=== PATIENT | female | born 1995 | race Caucasian/White ===

== ENCOUNTER 2020-03-30 06:02 | Emergency (ER) | payer OTHER, SELFPAY ==
[2020-03-30 06:04] VITALS: BP 124/64; PULSE 79; RESP 16; TEMP 36.8; O2SAT 99; BMI 22.1
--- NOTE | 2020-03-30 06:07 | ED.VIS.GEN ---
History of Present Illness Chief Complaint: Nausea/Vomiting Informant: Patient, Family Onset: Days Context: Gradual Onset Timing: Waxes and wanes Current Severity: Moderate Maximum Severity: Moderate Narrative: Present secondary to vomiting. She had a pituitary tumor removed at [facility] on March 24. She came home from the hospital on the third. She developed vomiting on the fifth. She started Zofran yesterday without significant improvement. She complains of feeling very dehydrated. She does have a mild headache. She has mild light sensitivity. No fever or chills noted. - Past Medical History (1) H/O: pituitary tumor Status: Acute Past Medical History - Allergies and Home Meds Allergies/Adverse Reactions: Allergies Penicillins Allergy (Verified 03/30/20 06:08) Rash Primary Care Physician: Rebel Slade III, MD [Primary Care Provider] - Prior records reviewed: Yes Lives: Spouse/ Significant Other Review of Systems General: Denies: Chills, Fever Eyes: Denies: Visual changes - bilaterally ENT: Denies: Bilateral ear pain Cardiovascular: Denies: Chest pain Respiratory: Denies: Dyspnea Gastrointestinal: Reports: Nausea, Vomiting. Denies: Abdominal pain Musculoskeletal: Denies: Extremity Pain Skin: Denies: Rash Neurological: Reports: Headache Hematologic: Denies: Easy bruising, Easy bleeding Allergy: Denies: Uticaria Physical Exam Inital Vital Signs reviewed: Yes General: Well nourished, Well developed Head: Normocephalic ENT: Dry mucous membranes Neck: Supple Cardiovascular: Regular rate, Regular rhythm Respiratory: No distress, CTA bilaterally Abdomen: Soft, Nontender, Hypoactive bowel sounds Extremities: Nontender Skin: Normal color Neurological: Alert, Oriented x3, Normal Strength, Normal Sensation Psychological: Normal affect Diagnostic/Tx/Re-eval 03/30/20 06:04 Brain/Head without Contrast [CT] Stat Laboratory Results 03/30/20 03/30/20 03/30/20 06:10 06:10 06:10 WBC 10.5 RBC 3.33 L Hgb 10.3 L Hct 29.1 L MCV 87.4 MCH 30.9 MCHC 35.4 RDW Std Deviation 34.6 L RDW Coeff of Luz Maria 11.1 L Plt Count 290 MPV 9.1 Immature Gran % (Auto) 0.700 Neut % (Auto) 86.5 H Lymph % (Auto) 7.4 L [place] % (Auto) 5.2 Eos % (Auto) 0.1 Baso % (Auto) 0.1 Absolute Neuts (auto) 9.1 H Absolute Lymphs (auto) 0.78 L Nucleated RBC % 0 Sodium 117 L* Potassium 3.3 L Chloride 80 L Carbon Dioxide 24.0 Anion Gap 13 BUN 7 Creatinine 0.83 Estim Creat Clear Calc 87.20 Est GFR (MDRD) Af Amer 109 Est GFR (MDRD) Non-Af 90 BUN/Creatinine Ratio 8.4 L Glucose 134 H Calcium 8.5 Total Bilirubin 1.00 Direct Bilirubin 0.31 H AST 36 ALT 52 Alkaline Phosphatase 72 Total Protein 7.2 Albumin 3.1 L Globulin 4.1 Serum , Qual NEGATIVE - Medical Decision Making Patient was given IV fluids along with Reglan and Benadryl on arrival. Vomiting is improved at this time. I was able to review records in clinic sink. On March 26 when she was discharged from the hospital her sodium was 142. Today her sodium is 117. I spoke with her surgeon at the [facility]. Patient has been accepted to the neuro ICU unit there. She has had a 1 L bolus of normal saline here and second bag will run at 200 cc/h. I have asked for 3% saline to be available at bedside only to be used if patient starts to seize. ED Disposition - Plan for ED Patient: Disposition: [facility] - Main Diagnosis: Hyponatremia Referrals: Rebel Slade III, MD [Primary Care Provider] -
[2020-03-30 06:12] VITALS: BP 124/64; PULSE 71; RESP 10; TEMP 37.1; O2SAT 100
[2020-03-30] MEDS: Metoclopramide 10 MG/2 ML Vial IV (06:12)
[2020-03-30] MEDS: 0.9% Normal Saline 1,000 ML 1000 ML IV (06:12)
[2020-03-30] MEDS: 0.9% Normal Saline 1,000 ML 150 ML IV (06:13)
[2020-03-30] MEDS: DiphenhydrAMINE 50 MG/ML Syringe 25 MG IV (06:13)
[2020-03-30 06:18] LABS: Absolute Lymphocyte Count 0.78 X10^3/uL (0.83-4.51); Absolute Neutrophil Count 9.1 X10^3/uL (2.0-7.7); Basophil# 0.01 X10^3/uL; Basophil% 0.1 % (0-1); Eosinophil# 0.01 X10^3/uL; Eosinophils% 0.1 % (0-5); Hematocrit 29.1 % (37-47); Hemoglobin 10.3 g/dL (12.0-15.0); Lymphocyte # 0.78 X10^3/ul (4.0); Lymphocyte % 7.4 % (19-41); Mean Corp Hgb Conc 35.4 g/dL (32-36); Mean Corpuscular Hgb 30.9 pg (27.0-32.0); Mean Corpuscular Volume 87.4 fL (81-99); Mean Platelet Vol. 9.1 fl (6.2-12.0); Monocyte# 0.54 X10^3/uL; Monocyte% 5.2 % (0-10); NRBC Flagged by Analyzer 0 % (0-5); Neutrophil # 9.06 X10^3/uL (2.7-7.7); Neutrophil % 86.5 % (47-70); Platelet Count 290 K/mm3 (150-450); RBC Distribution Width CV 11.1 % (11.6-14.6); RBC Distribution Width SD 34.6 fl (35.1-43.9); Red Blood Count 3.33 M/mm3 (4.2-5.4); White Blood Count 10.5 K/mm3 (4.4-11.0)
[2020-03-30 06:27] LABS: Internal QC Validated? YES +Cl - CLEAR BKGD; Pregnancy, Serum, hCG Quali. NEGATIVE Negative
[2020-03-30 06:47] LABS: AST(SGOT) 36 U/L (15-37); Alanine Aminotransfer ALT/SGPT 52 U/L (13-56); Albumin, Serum 3.1 g/dL (3.2-5.0); Alkaline Phosphatase 72 U/L (45-117); Anion Gap 13 (5-15); BUN 7 mg/dL (7-18); BUN/Creat Ratio 8.4 RATIO (10-20); Bilirubin, Direct 0.31 mg/dL (0.00-0.30); Calcium,Total 8.5 mg/dL (8.5-10.1); Chloride 80 mmol/L (98-107); Creatinine, Serum 0.83 mg/dL (0.55-1.02); EST Glomerular Filtration Rate 90 mL/min (>60); Est Glom Filt Rate - Afr Amer 109 mL/min (>60); Globulin 4.1 g/dL (2.2-4.2); Glucose 134 mg/dL (74-106); Potassium 3.3 mmol/L (3.5-5.1); Protein, Total 7.2 g/dL (6.4-8.2); Sodium Level 117 mmol/L (136-145)
--- NOTE | 2020-03-30 07:30 | ED.RN ---
sodium 3% at bedside per dr order not to given unless pt seizes
[2020-03-30 07:43] VITALS: BP 132/80; PULSE 78; RESP 14; O2SAT 98
[2020-03-30 08:11] VITALS: BP 127/90; PULSE 73; RESP 19; O2SAT 100
== END 2020-03-30 08:12 | disposition short-term general hospital (02) ==
PROVIDERS: Emergency Provider Emergency Medicine; PCP Family Medicine
DX: E87.1 Hypo-osmolality and hyponatremia (principal); R11.2 Nausea with vomiting, unspecified; E86.0 Dehydration
CPT/HCPCS: 80048; 80076; 84703; 85025; 96361; 96374; 96375; 99285; J7030; A4216

== ENCOUNTER 2022-02-24 10:36 | Emergency (ER) | payer OTHER, SELFPAY ==
[2022-02-24 10:37] VITALS: BP 116/72; PULSE 124; RESP 16; TEMP 37.6; O2SAT 98; BMI 27.1
--- NOTE | 2022-02-24 10:57 | EDS_ITS ---
HPI History of Present Illness Chief Complaint: Nausea/Vomiting Informant: patient Narrative Narrative: Presents with nausea vomiting and feeling of dehydration. Patient is currently 35 weeks G1, P0. She has not had significant problems with . She had some nausea vomiting first trimester. But she has done well since. She started with some nausea vomiting at about 1130 last night. No abdominal or pelvic pain. No loss of fluid or bleeding. No flank or back pain. No dysuria or your new urinary symptoms. She states she is vomited multiple times and if she drinks even water it comes up. She just feels as though she is a bit dehydrated. She states that she was not she would actually have stayed at home and written this out. She did talk to her OB who referred her here. Patient did accidentally take 3 rather than 2 iron pills yesterday that may have contributed to this. She also ate a meal with a large burger and salad at a restaurant and this may have initiated the events. She has no known sick contacts. No fevers or chills. Past medical history is pituitary adenoma No routine medications Allergy amoxicillin penicillin Surgeries transsphenoidal resection of the pituitary 2 years ago Non-smoker lives with [facility] Medical History (Updated 02/24/22 @ 12:[address] Phu Landin MD) Pituitary adenoma Home Medications NK 02/24/22 [History Last Taken Unknown] ondansetron 4 mg PO Q8H PRN #10 tab 02/24/22 [Rx Last Taken Unknown] Allergy/AdvReac Type Severity Reaction Status Date / Time amoxicillin Allergy Rash Verified 02/24/22 10:40 Penicillins Allergy Rash Verified 02/24/22 10:40 Social History Smoking Status: Never smoker ROS ROS ED Constitutional Constitutional ED: Denies chills or fever(s) Eyes Eyes: Denies blurry vision ENT ENT ED: Denies rhinorrhea Cardiovascular Cardiovascular: Denies chest pain or palpitations Respiratory/Chest Respiratory/Chest: Denies cough or dyspnea Gastrointestinal Gastrointestinal: Reports nausea and vomiting; Denies abdominal pain or diarrhea Genitourinary Genitourinary ED: Denies dysuria or hematuria Musculoskeletal Musculoskeletal: Denies myalgias Integumentary Denies rash Neurologic Neurologic: Denies headache(s), paresthesias or weakness Endocrine Endocrinology: Denies polydipsia or polyuria Allergic/Immunologic Allergic/Immunologic ED: Denies urticaria EXAM Physical Exam Const Vital Signs: 02/24/22 10:37 Temperature 99.6 F H Temperature Source Temporal Pulse Rate 124 H Respiratory Rate 16 Blood Pressure 116/72 Blood Pressure Mean 86 Pulse Ox 98 Oxygen Delivery Method Room Air Positive well nourished and well developed General Appearance ED: well developed and NAD; Negative for cyanotic or diaphoretic HEENT Reports dry mucous membranes HEENT Narrative: Mildly dry mucous membrane Mouth ED: Yes dry mucous membranes Mouth: dry mucous membranes Eyes General Eye ED: Negative for pale conjunctiva or scleral icterus Neck no JVD Chest Wall inspection of chest normal Resp normal respiratory effort and clear to auscultation bilaterally Cardio regular rhythm Rate: tachycardic GI normal to inspection, nondistended, normoactive bowel sounds and non-tender GI Narrative: Abdomen is gravid but otherwise normal. No tenderness at all. No uterine tenderness. No right upper quadrant or epigastric tenderness. This is a very benign abdominal exam Palpation: soft Back/Spine no CVA tenderness Extremity normal to inspection Neuro oriented x3 Sensorium / Orientation: alert Psych mental status grossly normal Skin no rashes or lesions noted MDM MDM MDM Narrative Medical decision making narrative: Since electrolytes and CBC overall look normal. Urine shows ketones but no sign of infection. Patient did not want COVID testing because of the transsphenoidal surgery that she had had 2 years ago. I went back to check on the patient. She was smiling with a cup of ice and water in her hand. She was tolerating this well. I think we can get her home at this time. We will write for a prescription of Zofran. We discussed reasons to return and follow-up. We even discussed the studies that have hinted of some risk with Zofran and during but I think the benefits outweigh the risks in this case. Lab Data Attestation: I reviewed the patient's lab results. Labs: Laboratory Results - last 24 hr 02/24/22 02/24/22 02/24/22 11:00 11:00 11:42 WBC 11.0 RBC 3.94 L Hgb 12.0 Hct 36.4 L MCV 92.4 MCH 30.5 MCHC 33.0 RDW Std Deviation 50.9 H RDW Coeff of Luz Maria 15.1 H Plt Count 223 MPV 9.6 Immature Gran % (Auto) 0.600 Neut % (Auto) 94.5 H Lymph % (Auto) 2.9 L [place] % (Auto) 1.8 Eos % (Auto) 0.0 Baso % (Auto) 0.2 Absolute Neuts (auto) 10.4 H Absolute Lymphs (auto) 0.32 L Nucleated RBC % 0 Differential Comment SCANNED Sodium 140 Potassium 3.9 Chloride 109 H Carbon Dioxide 23.0 Anion Gap 8 BUN 11 Creatinine 0.70 Estim Creat Clear Calc 101.63 Est GFR (MDRD) Af Amer 130 Est GFR (MDRD) Non-Af 107 BUN/Creatinine Ratio 15.6 Glucose 97 Calcium 8.7 Urine Color Yellow Urine Clarity Sl. Cloudy Urine pH 7.0 Ur Specific [place] 1.010 Urine Protein 15 H Urine Glucose (UA) Normal Urine Ketones 150 A* Urine Occult Blood Negative Urine Nitrite Negative Urine Bilirubin Negative Urine Urobilinogen 1 H Ur Leukocyte Esterase Negative Urine RBC 0 SEEN Urine WBC 0-5 SEEN Ur Squamous Epith Cells 5-10 SEEN Urine Bacteria 0 SEEN Urine Mucus 0 SEEN Discharge Plan Triage Chief Complaint: Nausea/Vomiting ED Provider: Phu Landin Dx/Rx/DC Orders Clinical Impression: Nausea and vomiting, Antepartum dehydration Instructions: ED Diet for Vomiting or ..., ED Vomiting (Adult) Prescriptions: New ondansetron 4 mg tablet,disintegrating 4 mg PO Q8H PRN (Reason: nausea and vomiting) Qty: 10 RF: 0 No Action NK RF: 0 Primary Care Provider: Tad Lovett Referrals: Tad Lovett MD [Primary Care Provider] - 1-2 Days if not improving Activity Restrictions/Additional Instructions: Call your director [facility] on [facility], Dr. Cali for recheck. Disposition Disposition: Home, Self Care
[2022-02-24] MEDS: Ondansetron 4 MG/2 ML Vial IV (11:05)
[2022-02-24] MEDS: 0.9% Normal Saline 1,000 ML 1000 ML IV (11:05)
[2022-02-24 11:17] LABS: Absolute Lymphocyte Count 0.32 X10^3/uL (0.83-4.51); Absolute Neutrophil Count 10.4 X10^3/uL (2.0-7.7); Basophil# 0.02 X10^3/uL; Basophil% 0.2 % (0-1); Hematocrit 36.4 % (37-47); Lymphocyte # 0.32 X10^3/ul (0.83-4.51); Lymphocyte % 2.9 % (19-41); Mean Corpuscular Hgb 30.5 pg (27.0-32.0); Mean Corpuscular Volume 92.4 fL (81-99); Mean Platelet Vol. 9.6 fl (6.2-12.0); Monocyte% 1.8 % (0-10); NRBC Flagged by Analyzer 0 % (0-5); Neutrophil % 94.5 % (47-70); POSITIVE DIFFERENTIAL YES; Platelet Count 223 K/mm3 (150-450); RBC Distribution Width CV 15.1 % (11.6-14.6); RBC Distribution Width SD 50.9 fl (35.1-43.9); Red Blood Count 3.94 M/mm3 (4.2-5.4)
[2022-02-24 11:20] LABS: Differential Indicated SCAN CRITERIA MET
[2022-02-24 11:28] LABS: Differential Comment SCANNED
[2022-02-24 11:33] LABS: Anion Gap 8 (5-15); BUN 11 mg/dL (7-18); BUN/Creat Ratio 15.6 RATIO (10-20); Calcium,Total 8.7 mg/dL (8.5-10.1); Chloride 109 mmol/L (98-107); EST Glomerular Filtration Rate 107 mL/min (>60); Est Glom Filt Rate - Afr Amer 130 mL/min (>60); Estimated Creatinine Clearance 101.63 ml/min; Glucose 97 mg/dL (74-106); Potassium 3.9 mmol/L (3.5-5.1); Sodium Level 140 mmol/L (136-145)
[2022-02-24 11:48] LABS: Bacteria 0 SEEN /hpf (None Seen); Mucous, Urine 0 SEEN /hpf (<or=2+); Red Blood Cells-Urine 0 SEEN /hpf (0-5)
[2022-02-24 11:51] LABS: Color, Urine Yellow (Yellow); Glucose, Dipstick Normal (Normal); Leukocyte Esterase-Dipstick Negative /ul (Negative); Nitrite-Dipstick Negative (Negative); Occult Blood-Urine Negative /ul (Negative); Protein-Dipstick 15 mg/dl (Negative); Urine Bilirubin Dipstick Negative (Negative); Urine Clarity Sl. Cloudy (Clear); Urine Urobilinogen 1 mg/dl (Normal)
[2022-02-24 11:52] LABS: Ketone-Dipstick 150 mg/dl (Negative)
[2022-02-24 12:04] LABS: Squamous Epithelial Cells - UA 5-10 SEEN /hpf (5-10); White Blood Cells 0-5 SEEN /hpf (0-5)
[2022-02-24 12:29] VITALS: PULSE 86; O2SAT 100
== END 2022-02-24 12:40 | disposition home or self-care (01) ==
PROVIDERS: Emergency Provider Emergency Medicine; PCP Family Medicine; Visit Provider Emergency Medicine
DX: O21.2 Late vomiting of pregnancy (principal); O99.283 Endocrine, nutritional and metabolic diseases complicating pregnancy, third trimester; E86.0 Dehydration; Z3A.35 35 weeks gestation of pregnancy
CPT/HCPCS: 80048; 81001; 85025; 96361; 96374; 99283; J7030; A4216; J2405

== ENCOUNTER 2022-03-31 15:50 | Inpatient (IN) | payer OTHER, SELFPAY ==
[2022-03-31] VITALS (8 sets, daily range): BP systolic 114–122; BP diastolic 71–82; PULSE 53–90; TEMP 36.1–36.9; O2SAT 97–100; BMI 26.8
[2022-03-31] MEDS: Lactated Ringers 1,000 ML 50 ML IV (16:40)
[2022-03-31 17:01] LABS: Basophil# 0.03 X10^3/uL; Basophil% 0.4 % (0-1); Eosinophil# 0.03 X10^3/uL; Eosinophils% 0.4 % (0-5); Hemoglobin 11.7 g/dL (12.0-15.0); Lymphocyte % 20.3 % (19-41); Mean Corp Hgb Conc 33.4 g/dL (32-36); Mean Corpuscular Volume 92.6 fL (81-99); Mean Platelet Vol. 9.8 fl (6.2-12.0); Monocyte# 0.51 X10^3/uL; Monocyte% 6.1 % (0-10); NRBC Flagged by Analyzer 0 % (0-5); Neutrophil # 6.04 X10^3/uL (2.7-7.7); Neutrophil % 72.1 % (47-70); Platelet Count 267 K/mm3 (150-450); RBC Distribution Width CV 14.9 % (11.6-14.6); RBC Distribution Width SD 50.4 fl (35.1-43.9); Red Blood Count 3.78 M/mm3 (4.2-5.4); White Blood Count 8.4 K/mm3 (4.4-11.0)
[2022-03-31] MEDS: miSOPROStol 25 MCG TABLET PO (17:07)
[2022-03-31] MEDS: LACTATED RINGERS 500 ML 999 ML IV (19:20)
[2022-03-31] MEDS: miSOPROStol 25 MCG TABLET VAGINAL (21:12)
[2022-04-01] VITALS (54 sets, daily range): BP systolic 89–149; BP diastolic 51–78; PULSE 58–104; RESP 11–17; TEMP 36.2–37.1; O2SAT 91–100
[2022-04-01] MEDS: miSOPROStol 50 MCG TABLET VAGINAL (01:41)
[2022-04-01] MEDS: 0.9% Normal Saline Single 100 ML IV.SOLN. INTRA-UTER (07:00)
--- NOTE | 2022-04-01 07:23 | HP.PCM.OB_ITS ---
HPI - General General Date of Admission: 03/30/22 Date of Service: 03/30/22 Chief Complaint: @ 40.5 weeks here for elective IOL HPI Narrative RAGHAV NGUYEN, is a 26 F who presents for elective IOL Maternal Data Information Final CIARA Source: [place] <20 weeks Gestational age: 40.5 [facility] Medical History (Updated 04/01/22 @ 07:[address] Vickie Pena MD) Pituitary adenoma Home Medications ferrous sulfate 325 mg (65 mg iron) tablet (iron) 65 mg PO BID anemia in 03/31/22 [History Last Taken 03/30/22 20:00] vit with calcium-iron fum-folic acid 60 mg iron-1 mg tablet 1 tab PO DAILY 03/31/22 [History Last Taken 03/31/22 08:00] Allergy/AdvReac Type Severity Reaction Status Date / Time amoxicillin Allergy Hives Verified 03/31/22 17:55 Penicillins Allergy Hives Verified 03/31/22 17:55 Social History Smoking Status: Never smoker History Elective abortions Hx Para 0 Spontaneous abortions Hx # Term Pregnancies Ectopic pregnancies Hx # Pregnancies Multiple births # of living children NST FHR Rate Baby A Baseline: 140s Variability:: Moderate Accelerations:: 15 x 15 Decelerations:: None NST Reactive:: Yes FHR Category:: Category I Uterine Activity:: irregular Vital Signs Vital Signs Vital Signs: 03/31/22 16:45 03/31/22 16:46 03/31/22 16:46 Temperature 98.4 F Temperature Source Pulse Rate 75 Blood Pressure 120/82 H BP Systolic 120 BP Diastolic 82 Pulse Ox 03/31/22 16:45 03/31/22 16:45 03/31/22 16:45 Temperature 98.4 F Temperature Source Temporal Pulse Rate Blood Pressure BP Systolic BP Diastolic Pulse Ox 97 03/31/22 19:34 03/31/22 19:34 03/31/22 19:40 Temperature Temperature Source Pulse Rate 90 60 Blood Pressure 122/71 H BP Systolic 122 BP Diastolic 71 Pulse Ox 03/31/22 19:40 03/31/22 19:42 03/31/22 22:54 Temperature 97.3 F L Temperature Source Pulse Rate Blood Pressure 114/74 BP Systolic 114 BP Diastolic 74 Pulse Ox 100 03/31/22 22:54 03/31/22 22:55 03/31/22 22:58 Temperature 97.0 F L Temperature Source Pulse Rate 53 L Blood Pressure BP Systolic BP Diastolic Pulse Ox 100 04/01/22 02:51 04/01/22 02:51 04/01/22 02:51 Temperature 98.2 F Temperature Source Pulse Rate 64 Blood Pressure 108/73 BP Systolic 108 BP Diastolic 73 Pulse Ox 04/01/22 06:05 04/01/22 06:05 04/01/22 06:05 Temperature 98.1 F Temperature Source Pulse Rate 59 L Blood Pressure 113/71 BP Systolic 113 BP Diastolic 71 Pulse Ox 04/01/22 06:05 04/01/22 06:05 04/01/22 07:14 Temperature Temperature Source Pulse Rate 58 L Blood Pressure 109/71 BP Systolic 109 BP Diastolic 71 Pulse Ox 98 04/01/22 07:14 04/01/22 07:14 04/01/22 07:14 Temperature 98.1 F Temperature Source Pulse Rate 62 Blood Pressure BP Systolic BP Diastolic Pulse Ox 99 04/01/22 07:15 04/01/22 07:15 Temperature 98.1 F Temperature Source Tympanic Pulse Rate Blood Pressure BP Systolic BP Diastolic Pulse Ox Weight Weight: 68.6 kg Body Mass Index (BMI) 26.8 Physical Exam Narrative VE: closed on admission. After 3 doses of 25mcg cytotec cervix 1/80/-2- Transcervical odonnell placed Const alert and oriented x3 General Appearance: cooperative HEENT normocephalic GI GI Narrative: Gravid, non tender to palpation. OB / External & Speculum: external exam normal Extremity normal to inspection Skin no rashes or lesions noted Neuro oriented x3 and CN's II-XII intact bilaterally Psych Appearance: grossly normal Labs Labs Labs: Blood Type A POSITIVE Antibody Screen NEGATIVE Hct 35.0 % (37-47) L Hgb 11.7 g/dL (12.0-15.0) L Assessment & Plan (1) 40 weeks gestation of : (2) Encounter for elective induction of labor: (3) H/O: pituitary tumor: PLAN: Plan Admit to L&D Montior FHR/TOCO Epidural if requested for pain Monitor VS Anticipate cytotec- 3 doses given ODONNELL/PITOCIN- will allow small meal before starting Pitcoin
[2022-04-01] MEDS: Oxytocin 30 units/NS 500 ml 30 UNITS/500 ML IV.SOLN IV (09:35)
[2022-04-01] MEDS: LACTATED RINGERS 500 ML 999 ML IV ×2 (09:35→13:33)
[2022-04-01] MEDS: Lactated Ringers 1,000 ML 200 ML IV ×2 (10:39→15:47)
[2022-04-01] MEDS: fentaNYL-bupivacaine (epidural) 100 ML BAG EPIDURAL (11:05)
[2022-04-01] MEDS: Acetaminophen 500 MG Tablet PO (15:49)
[2022-04-01] MEDS: Sodium Citrate/Citric Acid 30 ML UDC PO (15:49)
--- NOTE | 2022-04-01 16:10 | PCM.PN.BLA ---
Progress Note Elective induction at 40 weeks and 5 days. Pitocin has been on and off throughout the day due to having late decelerations. Baby is only tolerating 1 position well. meconium stained fluid at time of SROM. She has done multiple position changes Pitocin has been off and now the tracing is a category 1. I came into discussed with the patient and her continued labor without the use of Pitocin versus primary section. After discussion they would like to proceed with a primary section. pt reports she is very anxious and want to proceed with cs. They understand that she is remote from delivery and unable to start Pitocin and continue to use. Patient was approximately 4 cm at 9 AM and on last exam was 4 to 5 cm/85%/-2 at 3:30pm. Patient has a narrow pubic arch estimated weight on ultrasound was 7 pounds 11 ounces. currently FHR cat 1 and reactive. OR team notified.
[2022-04-01] MEDS: Cefazolin 2 GM in 0.9% Normal Saline 100 ML IV (16:16)
--- NOTE | 2022-04-01 17:05 | OP.PCM_ITS ---
Assessment & Plan (1) Delivery by section: (2) Meconium in amniotic fluid affecting management of mother: (3) Category II heart rate tracing during maternal care in third trimester: (4) intolerance to labor, delivered, current hospitalization: Details Operative Information Date of Procedure: 04/01/22 Pre-Operative Diagnosis: 40 weeks, meconium fluid, intolerance to labor, cat 2 fhr, remote from delivery Post-Operative Diagnosis: same, live female infant Indications Narrative: Patient was admitted on 03/31/2022 for elective induction. She received 3 doses of Cytotec. On 04/01/2022 transcervical Khalil and Pitocin were started. Khalil came out patient was approximately 4 cm. She spontaneously ruptured with meconium fluid. Pitocin was started but we are unable to continue it due to late decelerations. Patient was remote from delivery so 4 to 5 cm at approximately 3:30 PM. After discussion with the patient and her they decided to proceed with a primary section versus continued labor. Classification: ALICIA Procedure Type: low transverse toppiece chopper #1: Gabriela Abreu Type of Anesthesia: Epidural Antibiotic Given: Ancef 2 grams IV x1 and Zithromax 500 mg/5 mL X1 Drain: Khalil to straight drain Estimated Blood Loss: 600 Fluids Replaced: 1000 Procedure Start Time: 16:29 Time of Delivery: 16:34 Findings Description of Procedure: After informed consent was obtained the patient was taken the operating room. She was then placed in the supine position. She was prepped and draped in the normal sterile fashion. Epidural Anesthesia was found to be adequate. At this time a Pfannenstiel skin incision was made with a knife was carried down to the underlying layer of the fascia. The fascial incision was then extended laterally using curved Rodriguez scissor. Attention was then turned to the superior aspect of the fascial edge was grasped with 2 straight Alicia clamps tented up and the rectus muscle dissected off sharply using curved Rodriguez scissor. Attention was then turned to the inferior aspect where again [place] clamps were placed in the rectus muscles were tented up and the fascia was dissected off sharply using the curved Rodriguez scissor. Rectus muscles were then in the midline sharply and peritoneum was entered bluntly. Gentle opposing traction was placed. At this time the vesicouterine peritoneum was identified. Scalpel was used to make a uterine incision in a low transverse fashion. The uterus was then entered bluntly gentle opposing traction was placed to extend this incision. Amniotic fluid- meconium stained. head asynclitic maternal right. 's head was brought to the uterine incision was delivered atraumatically. Mouth and nose were suctioned. was vigorous. delayed cord clamping. Cord was clamped and cut was handed to the waiting nursery team. The Placenta was removed from the uterus. The uterus was then removed from the abdominal cavity. The uterus was cleared of all clots and debris using a lap. At this time the uterine incision was reapproximated using #1 Vicryl in a running locked fashion. followed by a second imbricating layer with 1-0 viryl in figure of eight fashion. Hemostasis was appreciated. Posterior cul-de-sac was then cleared of all clots and debris. Uterus was placed back in the abdominal cavity. Gutters were cleared of all clots and debris. Uterine incision was reevaluated and noted to be of excellent hemostasis. Misty placed over uterine incison. At this time the peritoneum and muscle were grasped with Kellys reapproximated using #2 Vicryl suture in a running fashion. Misty placed over rectus. Fascia was then reapproximated using #1 Vicryl in a running fashion. Misty placed in subq layer and layer was reapproximated with #2 0 plain gut suture in an interrupted fashion. Subcu layer was closed using 4-0 Monocryl in a subcu fashion. Dry sterile dressing was applied. Instrument lap needle count correct ?2. Anticipated normal postoperative course. Presentation: Positive for Vertex Amniotic Membrane Rupture Type: Spontaneous Amniotic Fluid Description: Moderate meconium Placental Delivery Description: Expressed Placenta Disposition: [facility] Cord Vessel Description: 3 Vessels Cord Entanglement: None Cord Gases: ABG and VBG Infant A Gender: Female (1 minute): 9 (5 minute): 9 Delayed Cord Clamping: Yes Complications Risks of Surgery Discussed w/Patient: Bleeding, Anesthesia Risks, Infection and Injury to surrounding structure(s) including bowel and bladder Complications: none
[2022-04-01] MEDS: Oxytocin 30 units/NS 500 ml 30 UNITS/500 ML IV.SOLN 167 UNITS IV (17:20)
[2022-04-01] MEDS: Ketorolac 30 MG/ML Syringe IV ×2 (17:40→23:33)
--- NOTE | 2022-04-01 19:40 | NURSING ---
Epidural cath removed by this RN. Blue tip intact.
[2022-04-01] MEDS: Lactated Ringers 1,000 ML 100 ML IV (20:43)
[2022-04-01] MEDS: Acetaminophen 500 MG Tablet 1000 MG PO (21:51)
[2022-04-01] MEDS: Ferrous Sulfate 325 MG Tablet PO (21:51)
[2022-04-02] VITALS (7 sets, daily range): BP systolic 92–108; BP diastolic 48–71; PULSE 56–69; RESP 14–18; TEMP 36.1–36.4; O2SAT 97–100
[2022-04-02] MEDS: Acetaminophen 500 MG Tablet 1000 MG PO ×4 (03:45→22:50)
[2022-04-02] MEDS: Ketorolac 30 MG/ML Syringe IV ×2 (05:20→11:14)
[2022-04-02] MEDS: 0.9% Saline Lock 10 ML Syringe IV ×2 (05:21→11:15)
[2022-04-02 05:34] LABS: Hematocrit 32.6 % (37-47); Mean Corp Hgb Conc 33.7 g/dL (32-36); Mean Corpuscular Hgb 31.1 pg (27.0-32.0); Mean Corpuscular Volume 92.1 fL (81-99); Mean Platelet Vol. 9.5 fl (6.2-12.0); Platelet Count 234 K/mm3 (150-450); RBC Distribution Width CV 14.5 % (11.6-14.6); RBC Distribution Width SD 49.2 fl (35.1-43.9); Red Blood Count 3.54 M/mm3 (4.2-5.4); White Blood Count 12.1 K/mm3 (4.4-11.0)
--- NOTE | 2022-04-02 09:41 | PCM.PROGNOTE ---
Subjective Subjective patient seen at bedside, doing well. Patient reports good pain control. lochia mild. dressing dry and intact. passing flatus, voiding w/o difficulty. breast feeding well. Objective Data Objective Data Vital Signs: Vital Signs Temp Pulse Resp BP Pulse Ox O2 Del Method 97.6 F L 66 14 105/64 98 Room Air 04/02/22 08:20 04/02/22 08:20 04/02/22 08:20 04/02/22 08:20 04/02/22 08:20 04/02/22 08:20 Oxygen Delivery Method Room Air Weight: 68.6 kg Body Mass Index (BMI) 26.8 Intake & Output: Intake and Output for Last 24 Hours 03/31/22 04/01/22 04/02/22 23:59 23:59 23:59 Intake Total 633.33 / 633.33 3799.42 / 3799.42 626.67 / 626.67 Output Total 1000 / 1000 3325 / 3325 1500 / 1500 Balance -366.67 / -366.67 474.42 / 474.42 -873.33 / -873.33 Lab / Micro Data Result Diagrams: 04/02/22 05:25 Labs: Laboratory Results - last 24 hr 04/02/22 05:25: WBC 12.1 H, RBC 3.54 L, Hgb 11.0 L, Hct 32.6 L, MCV 92.1, MCH 31.1, MCHC 33.7, RDW Std Deviation 49.2 H, RDW Coeff of Luz Maria 14.5, Plt Count 234, MPV 9.5 Micro: Microbiology 03/31/22 16:50 Nasal Secretion SARS-CoV-2 Antigen (Rapid) - Final Physical Exam Const alert and oriented x3 General Appearance: cooperative HEENT normocephalic Neck General: normal visual inspection GI soft to palpation and non-distended GI Narrative: Fundus firm Extremity normal to inspection and no calf tenderness Skin no rashes or lesions noted Neuro oriented x3 and CN's II-XII intact bilaterally Psych mental status grossly normal Assessment & Plan Assessment/Plan (1) Delivery by section: PLAN: Plan POD# 1 , Doing well Routine care pain mgmt monitor VS ambulation
[2022-04-02] MEDS: Senna/Docusate Sodium 1 Tablet PO (10:26)
[2022-04-02] MEDS: Ferrous Sulfate 325 MG Tablet PO ×2 (11:14→16:52)
[2022-04-02] MEDS: Ibuprofen 600 MG Tablet PO (18:02)
[2022-04-03] MEDS: Ibuprofen 600 MG Tablet PO ×2 (00:05→05:55)
[2022-04-03 02:00] VITALS: BP 121/67; PULSE 57; RESP 16; TEMP 36.3; O2SAT 99
[2022-04-03] MEDS: Acetaminophen 500 MG Tablet 1000 MG PO ×2 (05:04→09:37)
[2022-04-03 07:57] VITALS: BP 126/58; PULSE 65; RESP 18; TEMP 36.6; O2SAT 98
--- NOTE | 2022-04-03 08:31 | OB.TRI.PN ---
Progress Notes Progress Note: Doing well per patient and nursing staff. Ambulating and taking PO without difficulty. Voiding and passing flatus. Pain controlled. , services for assistance. Denies headache, visual changes, chest pain, shortness of breath, leg pain or increased bleeding. Lochia normal. Laboratory Studies: Laboratory Tests 04/02/22 03/31/22 03/31/22 Range/Units 05:25 16:40 16:40 WBC 12.1 H 8.4 (4.4-11.0) K/mm3 RBC 3.54 L 3.78 L (4.2-5.4) M/mm3 Hgb 11.0 L 11.7 L (12.0-15.0) g/dL Hct 32.6 L 35.0 L (37-47) % MCV 92.1 92.6 (81-99) fL MCH 31.1 31.0 (27.0-32.0) pg MCHC 33.7 33.4 (32-36) g/dL RDW Std Deviation 49.2 H 50.4 H (35.1-43.9) fl RDW Coeff of Luz Maria 14.5 14.9 H (11.6-14.6) % Plt Count 234 267 (150-450) K/mm3 MPV 9.5 9.8 (6.2-12.0) fl Immature Gran % (Auto) 0.700 (0.0-0.9) % Neut % (Auto) 72.1 H (47-70) % Lymph % (Auto) 20.3 (19-41) % [place] % (Auto) 6.1 (0-10) % Eos % (Auto) 0.4 (0-5) % Baso % (Auto) 0.4 (0-1) % Absolute Neuts (auto) 6.0 (2.0-7.7) X10^3/uL Absolute Lymphs (auto) 1.70 (0.83-4.51) X10^3/uL Nucleated RBC % 0 (0-5) % Blood Type A POSITIVE Antibody Screen NEGATIVE Assessment & Plan (1) Delivery by section: (2) Lactating mother:
--- NOTE | 2022-04-03 08:33 | PN.OBGYN_ITS ---
Subjective Subjective Doing well per patient and nursing staff. Ambulating and taking PO without difficulty. Voiding and passing flatus. Pain controlled. , services for assistance. Denies headache, visual changes, chest pain, shortness of breath, leg pain or increased bleeding. Lochia normal. Objective Data Objective Data Vital Signs: Vital Signs Temp Pulse Resp BP Pulse Ox O2 Del Method 97.8 F 65 18 126/58 H 98 Room Air 04/03/22 07:57 04/03/22 07:57 04/03/22 07:57 04/03/22 07:57 04/03/22 07:57 04/03/22 07:57 Oxygen Delivery Method Room Air Weight: 151 lb 3.794 oz Body Mass Index (BMI) 26.8 Intake & Output: Intake and Output for Last 24 Hours 04/01/22 04/02/22 04/03/22 23:59 23:59 23:59 Intake Total 3799.42 / 3799.42 626.67 / 626.67 Output Total 3325 / 3325 1500 / 1500 Balance 474.42 / 474.42 -873.33 / -873.33 Lab / Micro Data Result Diagrams: 04/02/22 05:25 Micro: Microbiology 03/31/22 16:50 Nasal Secretion SARS-CoV-2 Antigen (Rapid) - Final ROS Constitutional Constitutional: Reports systems reviewed and no addt'l complaints, except as doc umented; Denies headache(s) Eyes Eyes: Denies acute decrease in peripheral vision, blurry vision or change in vision ENT HEENT: Reports systems reviewed and no addt'l complaints, except as documented Cardiovascular Cardiovascular: Denies chest pain or dizziness Respiratory/Chest Respiratory/Chest: Denies cough, dyspnea, dyspnea on exertion, shortness of breath at rest or shortness of breath with exertion Gastrointestinal Gastrointestinal: Denies abdominal pain, diarrhea, nausea or vomiting Genitourinary Genitourinary: Denies abdominal discomfort Musculoskeletal Musculoskeletal: Denies limited range of motion Integumentary Integumentary: Reports systems reviewed and no addt'l complaints, except as do cumented Neurologic Neurologic: Reports systems reviewed and no addt'l complaints, except as documented Psychiatric Psychiatric: Reports systems reviewed and no addt'l complaints, except as documented Endocrine Endocrinology: Reports systems reviewed and no addt'l complaints, except as documented Hematologic/Lymphatic Hematologic/Lymphatic: Reports systems reviewed and no addt'l complaints, except as documented Allergic/Immunologic Allergic/Immunologic: Reports systems reviewed and no addt'l complaints, except as documented Physical Exam Const alert and oriented x3 General Appearance: cooperative Orientation / Consciousness: awake, oriented to person, oriented to place and oriented to time Exam Limitations: no limitations HEENT normocephalic Head and Scalp: normal to inspection, normocephalic and atraumatic Face and Sinus: normal facial exam Eyes General Eye: normal appearance of both eyes Neck full ROM Chest Chest: symmetrical chest wall rise Resp normal respiratory effort and normal air movement Auscultation: clear to auscultation bilaterally Cardio regular rate, regular rhythm, S1 normal heart sound, S2 normal heart sound, no murmurs, no rub, no gallops and no clicks GI normal to inspection, nondistended, normoactive bowel sounds and non-tender GI Narrative: dressing dry and intact appearance of the vagina normal Bladder / Kidney Exam: no CVA tenderness Back/Spine normal ROM Extremity normal to inspection and full ROM Skin no rashes or lesions noted Neuro oriented x3, CN's II-XII intact bilaterally and moves all extremities Sensorium / Orientation: awake, alert and oriented to person Motor Exam: clonus absent Deep Tendon Reflexes: Rt Patellar (L4): 2+ and Lt Patellar (L4): 2+ Assessment & Plan (1) Lactating mother: (2) Delivery by section: PLAN: Plan 1) Routine PP care 2) Vitals stable 3) I&O 4) Pain management 5) Follow up in 2 weeks for incision check and 6 weeks for PP visit
--- NOTE | 2022-04-03 08:35 | PCM.DC.SUM ---
Providers Date of Admission: 03/31/22 Primary Care Physician: Dr. Tad Lovett MD Reason For Visit: PRIMARY Diagnosis Discharge Diagnosis (1) Lactating mother: Status: Acute Code(s): Z39.1 - Encounter for care and examination of lactating mother (2) Delivery by section: Status: Acute Plan 1) Routine PP care 2) Vitals stable 3) I&O 4) Pain management 5) Follow up in 2 weeks for incision check and 6 weeks for PP visit Medications at Discharge Home Medications ferrous sulfate 325 mg (65 mg iron) tablet (iron) 65 mg PO BID anemia in 03/31/22 vit with calcium-iron fum-folic acid 60 mg iron-1 mg tablet 1 tab PO DAILY 03/31/22 acetaminophen 500 mg tablet 1,000 mg PO Q6H #0 tabs 04/03/22 ibuprofen 600 mg tablet 600 mg PO Q6 #0 tabs 04/03/22 oxycodone 5 mg tablet 5 - 10 mg PO Q6H 7 days #10 tabs 04/03/22 Hospital Course Summary of Care Provided Hospital Course: Presented on 03/31/22 for elective induction of labor. heart decelerations and remote from delivery, decision for low transverse section. Discharge home on day #2. Weight / BMI Weight Weight: 151 lb 3.794 oz Body Mass Index (BMI) 26.8 ABG / Lab / Microbiology Data Result Diagrams: 04/02/22 05:25 Microbiology: Microbiology 03/31/22 16:50 Nasal Secretion SARS-CoV-2 Antigen (Rapid) - Final Meaningful Use Info Meaningful Use Diagnoses (Choose all that apply): None applicable Discharge Plan Admission Admit Date/Time: 03/31/22 15:50 Primary Reason for Your Visit: Section Attending Provider: Vickie Pena Primary Care Provider: Tad Lovett Instructions Patient Instructions: After a Discharge Orders/Prescriptions Prescriptions: New acetaminophen 500 mg Tablet 1,000 mg PO Q6H Qty: 0 0RF ibuprofen 600 mg Tablet 600 mg PO Q6 Qty: 0 0RF oxycodone 5 mg Tablet 5 - 10 mg PO Q6H 7 Days Qty: 10 0RF Continued vit-iron fum-folic ac 60 mg iron-1 mg Tablet 1 tab PO DAILY ferrous sulfate [iron] 325 mg (65 mg iron) Tablet 65 mg PO BID Referrals / Follow Up: Tad Lovett MD [Primary Care Provider] - Disposition Disposition (needs filled in before D/C Order can be placed): Home, Self Care
[2022-04-03] MEDS: Senna/Docusate Sodium 1 Tablet PO (09:38)
--- NOTE | 2022-04-03 11:13 | CASEMGMT ---
Social Work Assessment MOB: Rodney Anthony G/P: 1/0 PNC: [facility] Control: Pt states that she plans on just being cautious. Pt states that she hasn't had much luck with control. Baby: Doomnique Anthony : 04/01/2021 Apgars: 06/02 Weight: 3250G Project Geophysicist: Sunny ARREAGA states she will do combination feeding if needed. MOB Other's Children: MOB reports that this if first baby. Housing: MOB reports no concerns with housing. Transportation: MOB reports access to transportation and she has no concerns with transportation. Supplies: MOB reports that she has all needed supplies for baby including crib, bassinet, Car Seat, diapers. Supports: MOB reports her Trisha. Education Level: MOB reports she graduated from High School. MOB reports she went to college at [employer]. MOB reports she has a degree in Clinical Mental Health. Employment: MOB reports she works at [employer]. MOB reports no financial concerns. Agency Involvement: MOB reports no agency involvement. MOB reports she used to be in counseling but none currently. MOB denied any legal involvement. MOB Mental Health Hx. MOB reports Anxiety. MOB Reports that she is not on any medications currently. MOB states that her Anxiety is well managed. MOB reports no current suicidal/homicidal thoughts/plans/ideations. PHQ-2: MOB score 0 AOD History: MOB denied any AOD history. MOB reports no AOD use during . 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 MOB and FOB Reports no Domestic Violence concerns. SW provided education on Shaken Baby, PPD, and Safe Sleeping. SW provided packet of resources. MOB standing up during assessment and FOB holding baby. RN reports no concerns. MOB and FOB appropriate during conversation and affect appropriate. 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
== END 2022-04-03 11:20 | disposition home or self-care (01) | DRG 788 ==
PROVIDERS: Admitting Provider Obstetrics & Gynecology; PCP Family Medicine; Visit Provider Obstetrics & Gynecology
DX: O48.0 Post-term pregnancy (principal); O76 Abnormality in fetal heart rate and rhythm complicating labor and delivery; O77.0 Labor and delivery complicated by meconium in amniotic fluid; Z3A.40 40 weeks gestation of pregnancy; Z37.0 Single live birth
CPT/HCPCS: 59025; 59050; 85025; 85027; 86850; 86900; 86901; 87426; 99218; 99251; J7120; A4216; G0378; G0463

== ENCOUNTER → 2024-03-26 | Outpatient (CLI) | payer OTHER, SELFPAY ==
--- NOTE | 2024-03-26 15:35 | MRI_ITS ---
STUDY: MRI BRAIN WITH AND WITHOUT CONTRAST (ATTENTION PITUITARY GLAND) REASON FOR EXAM: Female, 28 years old. PITUITARY MASS -- PITUITARY/SELLAR MASS, POST RESECTION, MONITOR TECHNIQUE: Standardized multiplanar fat and water weighted pulse sequences were obtained. 12CC was administered for the contrast portion of the examination. COMPARISON: MR the brain dated March 07, 2021. MRI the brain dated April 09, 2023 FINDINGS: Minimal scar tissue is present at the periphery of the pituitary gland from prior surgical intervention. Normal size of the pituitary gland for the patient?s age and gender. There is no demonstrated residual or recurrent pituitary adenoma. No cystic lesion is present. Normal enhancement of the pituitary gland, without a demonstrated intrapituitary lesion. Normal infundibular stalk and suprasellar cistern. Normal optic chiasm and hypothalamus. Normal size of the ventricles and extra-axial spaces for the patient''s age. Normal white matter tracts of the supratentorial brain. There is no evidence for recent intracranial ischemia or other cause of cytotoxic edema on diffusion weighted imaging (DWI). Normal T2* images of the brain without demonstrated susceptibility artifact. There is no demonstrated hemosiderin stain. There are no demyelinating plagues of the supratentorial brain, brainstem or cerebellum. There are no findings suspicious for multiple sclerosis (MS). Normal bilateral basal ganglia. Normal thalami. Normal flow voids within the major intracranial circulation suggesting patency by spin echo criteria. Normal venous enhancement. There is no enhancing intra-axial or extra-axial abnormality. There is no extra-axial fluid accumulation. Normal tectal plate and pineal gland. Normal midbrain, gabriela and medulla. Normal cerebellum. Normal basal cisterns. Normal bilateral temporal bones. Normal bilateral internal auditory canals. No demonstrated orbital abnormality, within the constraints of a routine brain study. Normal visualized paranasal sinuses. Normal calvarium and skull base. Normal visualized upper cervical spine. Normal visualized soft tissue structures. MRI/Brain W/WO Contrast IMPRESSION: 1. Unremarkable MRI of the pituitary gland. No pituitary lesion/recurrent adenoma is present. The study is unchanged since March 07, 2021. Electronically Signed: Lisandro Jorgensen MD at 11:54 EDT ,
== END | disposition home or self-care (01) ==
LOC: MRI 15:27
PROVIDERS: PCP Family Medicine
DX: E23.6 Other disorders of pituitary gland (principal)
CPT/HCPCS: 70553; A9575

== ENCOUNTER → 2024-08-15 | Outpatient (CLI) | payer OTHER, SELFPAY ==
[2024-08-15 12:22] LABS: Absolute Lymphocyte Count 1.91 X10^3/uL (0.83-4.51); Absolute Neutrophil Count 3.9 X10^3/uL (2.0-7.7); Basophil# 0.03 X10^3/uL; Basophil% 0.5 % (0-1); Eosinophil# 0.04 X10^3/uL; Eosinophils% 0.6 % (0-5); Hematocrit 39.1 % (37-47); Hemoglobin 13.3 g/dL (12.0-15.0); Lymphocyte # 1.91 X10^3/ul (0.83-4.51); Lymphocyte % 30.6 % (19-41); Mean Corpuscular Hgb 30.6 pg (27.0-32.0); Mean Corpuscular Volume 90.1 fL (81-99); Mean Platelet Vol. 9.8 fl (6.2-12.0); Monocyte# 0.32 X10^3/uL; Monocyte% 5.1 % (0-10); NRBC Flagged by Analyzer 0 % (0-5); Neutrophil % 62.6 % (47-70); Platelet Count 307 K/mm3 (150-450); RBC Distribution Width CV 12.4 % (11.6-14.6); RBC Distribution Width SD 40.7 fl (35.1-43.9); Red Blood Count 4.34 M/mm3 (4.2-5.4); White Blood Count 6.2 K/mm3 (4.4-11.0)
[2024-08-15 12:59] LABS: Thyroid Stim Hormone (TSH) 0.993 uIU/mL (0.358-3.740)
[2024-08-15 13:33] LABS: HIV - WCH Non-Reactive (Nonreactive); Hepatitis B Surface Antigen Non-Reactive (Nonreactive); Hepatitis C Antibody Non-Reactive (Nonreactive); Rubella IgG Reactive (Nonreactive); Syphilis Antibodies Non-reactive
[2024-08-16 04:08] LABS: PROLACTIN 16.9 ng/mL (4.8-33.4)
== END | disposition home or self-care (01) ==
PROVIDERS: PCP Family Medicine; Referring Provider Obstetrics & Gynecology; Visit Provider Obstetrics & Gynecology
DX: Z34.90 Encounter for supervision of normal pregnancy, unspecified, unspecified trimester (principal); Z87.898 Personal history of other specified conditions
CPT/HCPCS: 36415; 84146; 84443; 85025; 86703; 86762; 86780; 86803; 86850; 86900; 86901; 87340

== ENCOUNTER → 2024-08-26 | Outpatient (CLI) | payer OTHER, SELFPAY | END | disposition home or self-care (01) | LOC: LABSPEC 10:48 | PROVIDERS: PCP Family Medicine; Referring Provider Obstetrics & Gynecology; Visit Provider Obstetrics & Gynecology | DX: O09.91 Supervision of high risk pregnancy, unspecified, first trimester (principal); Z3A.00 Weeks of gestation of pregnancy not specified | CPT/HCPCS: 87077; 87086; 87088; 87186 ==

== ENCOUNTER → 2024-12-08 | Outpatient (CLI) | payer OTHER, SELFPAY ==
[2024-12-08 17:02] LABS: Absolute Lymphocyte Count 1.96 X10^3/uL (0.83-4.51); Absolute Neutrophil Count 6.4 X10^3/uL (2.0-7.7); Basophil# 0.03 X10^3/uL; Basophil% 0.3 % (0-1); Eosinophil# 0.02 X10^3/uL; Eosinophils% 0.2 % (0-5); Hematocrit 32.2 % (37-47); Hemoglobin 10.9 g/dL (12.0-15.0); Lymphocyte # 1.96 X10^3/ul (0.83-4.51); Lymphocyte % 22.3 % (19-41); Mean Corp Hgb Conc 33.9 g/dL (32-36); Mean Corpuscular Hgb 31.2 pg (27.0-32.0); Mean Corpuscular Volume 92.3 fL (81-99); Mean Platelet Vol. 9.7 fl (6.2-12.0); Monocyte# 0.33 X10^3/uL; Monocyte% 3.8 % (0-10); NRBC Flagged by Analyzer 0 % (0-5); Neutrophil # 6.41 X10^3/uL (2.7-7.7); Neutrophil % 72.9 % (47-70); Platelet Count 285 K/mm3 (150-450); RBC Distribution Width CV 12.4 % (11.6-14.6); RBC Distribution Width SD 41.7 fl (35.1-43.9); Red Blood Count 3.49 M/mm3 (4.2-5.4); White Blood Count 8.8 K/mm3 (4.4-11.0)
[2024-12-08 17:37] LABS: Syphilis Antibodies Nonreactive (Nonreactive)
[2024-12-08 17:46] LABS: Glucose Challenge Gest 1H 50g 118 mg/dL (70-140); HIV Nonreactive (Nonreactive)
== END | disposition home or self-care (01) ==
PROVIDERS: PCP Family Medicine; Referring Provider Obstetrics & Gynecology; Visit Provider Obstetrics & Gynecology
DX: O09.91 Supervision of high risk pregnancy, unspecified, first trimester (principal); Z13.1 Encounter for screening for diabetes mellitus; Z3A.00 Weeks of gestation of pregnancy not specified
CPT/HCPCS: 36415; 82950; 85025; 86703; 86780

== ENCOUNTER → 2025-02-09 | Outpatient (CLI) | payer OTHER, SELFPAY | END | disposition home or self-care (01) | LOC: LABSPEC 11:54 | PROVIDERS: Referring Provider Obstetrics & Gynecology; Visit Provider Obstetrics & Gynecology | DX: O09.91 Supervision of high risk pregnancy, unspecified, first trimester (principal); Z3A.00 Weeks of gestation of pregnancy not specified | CPT/HCPCS: 87081 ==

== ENCOUNTER 2025-03-02 05:05 | Inpatient (IN) | payer OTHER, SELFPAY ==
[2025-03-02] VITALS (18 sets, daily range): BP systolic 95–120; BP diastolic 59–87; PULSE 57–96; RESP 16–18; TEMP 36.1–36.8; O2SAT 94–100; BMI 27.3
--- OUTSIDE RECORDS SUMMARY | 2025-03-02 05:21 | XMS RPT_ITS | CCD ---
Author Organization [facility] Care Team Providers Care Applications System Analyst Name Role Phone [place] CORONADO MD, Rebel Joshua Unavailable Unavailab Earle Farisa DO Unavailable Meena LEIGH, Adelina Martinez Unavailable [phone] Dinah Lovett MD Primary Care Provider ZULMA SAENZ Attending Unavailable DINAH LOVETT Primary Care Unavailable BRITTNEY LEDESMA Attending Unavailable DINAH LOVETT Primary Care Unavailable Dr. Dinah Lovett MD Primary Care Provider [phone] Dr. Dinah Lovett MD Referring Provider Dr. Bethany Fry DO Attending Provider Dr. Bethany Fry DO Referring Provider Nhi Rose CNM Attending Provider Dr. Rema Fry MD Attending Provider [phone] MILEY PEARSON Attending Unavailable BETHANY GAVIN Referring Unavailab da CHATTERJEE PRIMARY MD DAYANNA Primary Care Unavailable REMA FRY Attending UnavailREMA Molina Referring Unavailhunter e Unavailable Primary Care Provider Dr. Dinah Cote MD Primary Care Provider Dr. Dinah Lovett MD Referring Provider Dr. Bethany Fry DO Attending Provider Dr. Bethany Fry DO Referring Provider Karen Kolb Attending Provider Dr. Dinah Lovett MD Primary Care Provider Dr. Dinah Lovett MD Referring Provider [phone] Dr. Rema Fry MD Attending Provider [phone] Jose HUGHES, Edna Attending Provider [phone] Shenae Velsylvester, Bethany Attending Unavailabl e Vande Velde, Bethany Referring Unavailabl e Elderbrock, Dinah Primary Care Unavailable Vande Velde, Bethany Attending Unavailabl e Vande Velde, Bethany Admitting Unavailabl e Elderbrock, Dinah Primary Care Unavailable Elderbrock, Dinah Primary Care Unavailable Elderbrock, Dinah Attending Unavailable Elderbrock, Dinah Primary Care Unavailable Elderbrock, Dinah Referring Unavailable Nhi Rose Attending Unavailable Vande Velde, Bethany Attending Unavailabl e Elderbrock, Dinah Primary Care Unavailable Elderbrock, Dinah Referring Unavailable Jose SURVEY RESEARCH CENTER DIRECTOR, Karen Attending Unavailable Elderbrock, Dinah Referring Unavailable Vande Velde, Bethany Attending Unavailabl e Elderbrock, Dinah Referring Unavailable Elderbrock, Dinah Referring Unavailable Rema Fry Attending Unavailable Vande Velde, Bethany Attending Unavailabl e Elderbrock, Dinah Referring Unavailable Vande Velde, Bethany Attending Unavailabl e Elderbrock, Dinah Referring Unavailable Vande Velde, Bethany Attending Unavailabl e Elderbrock, Dinah Referring Unavailable Edna Garcia Attending Unavailable Elderbrock, Dinah Primary Care Unavailable Elderbrock, Dinah Referring Unavailable Rema Fry Attending Unavailable Vande Velde, Bethany Attending Unavailabl e Elderbrock, Dinah Primary Care Unavailable Elderbrock, Dinah Referring Unavailable Vande Velde, Bethany Attending Unavailabl e Vande Velde, Bethany Referring Unavailabl e Jeremiah, Dinah Referring Unavailable Jeremiah, Dinah Attending Unavailable Elderbrock, Dinah Primary Care Unavailable Vande Velde, Bethany Referring Unavailabl e Vande Velde, Bethany Attending Unavailabl e Elderbrock, Dinah Primary Care Unavailable Vande Velde, Bethany Attending Unavailabl e Vande Velde, Bethany Referring Unavailabl e Elderbrock, Dinah Primary Care Unavailable Allergies Allergy Classification Reported Allergen(s) Allergy Type Date of Onset Reaction(s) Facility (20 sources) Amoxicillin; Translations: [AMOXICILLIN] Drug Allergy 01-14-2013 GI Upset [facility] Work Phone: (20 sources) Amoxicillin / Clavulanate; Translations: [AMOXICILLIN-POT CLAVULANATE] Drug Allergy 09-16-2008 Rash [facility] (7 sources) Penicillins; Translations: [Penicillins] Allergy to substance 02-24-2022 Rash, Hives [facility] (1 source) Amoxicillin Drug Allergy 02-27-2025 [facility] Repository Medications Current Medications Medication Drug Class(es) Dates Sig (Normalized) Sig (Original) acetaminophen 500 mg oral tablet (5 sources) Start: 04-03-2022 take 2 tablets by mouth every six hours Acetaminophen 500 mg Tablet Active 1000 mg PO EVERY 6 HOURS 0 April 03, 2022 12:00am Start: 04-03-2022 take 1000 mg by mout h every six hours Acetaminophen Active 1000 MG PO EVERY 6 HOURS 0 April 03, 2022 12:00am aspirin 81 mg delayed release oral tablet (3 sources) Platelet Aggregation Inhibitor, Nonsteroidal Anti-inflammatory Drug Start: 07-29-2024 take 1 tablet by mouth once daily aspirin, enteric coated (ECOTRIN LOW STRENGTH) 81 mg EC tablet Indications: with uncertain dates, antepartum (HCC) Take 1 tablet by mouth once daily. 90 tablet 3 07/29/2024 Active cephalexin 500 mg oral capsule (1 source) Cephalosporin Antibacterial Start: 07-30-2024 End: 08-06-2024 take 1 capsule by mouth three times daily cephALEXin (KEFLEX) 500 mg capsule Take 1 capsule by mouth three times a day for 7 days. 21 capsule 07/30/2024 08/06/2024 Active Jdhkezzo-Su-Itk- Fe-FA ( VITAMIN) tab (20 sources) Start: 05-27-2021 take 1 tablet by mouth once daily Wmxnkniw-Dn-Klz-F e-FA ( VITAMIN) tab Take 1 tablet by mouth once daily. 05/27/2021 Active Start: 05-27-2021 take 1 tablet by teodoro th once daily Sfdhjoru-Ip-Gzy-Fe-FA ( VITAMIN) tab Take 1 tablet by mouth once daily. 0 05/27/2021 Active Comment on above: Take 1 tablet by teodoro th once daily. Vit-Iron Fum-Folic Ac (1 source) Start: 03-31-2022 take 1 tablet by mouth once daily before mealtime Vit-Iron Fum-Folic Ac Active 1 TABLET PO DAILY March 31, 2022 12:00am Vit-Iron Fum-Folic Ac 60 mg iron-1 mg Tablet (4 sources) Start: 03-31-2022 Vit-Iron Fum-Folic Ac 60 mg iron-1 mg Tablet Active 1 {tbl} PO DAILY March 31, 2022 12:00am Completed/Discontinued Medications Medication Drug Class(es) Dates Sig (Normalized) Sig (Original) doxycycline hyclate 100 mg oral capsule (1 source) Tetracycline-cla ss Drug Start: 01-12-2023 End: 01-12-2023 take 2 capsules by mouth once doxycycline hyclate (VIBRAMYCIN) 100 mg capsule Indications: Tick bite, unspecified site, initial encounter Take 2 capsules by mouth one time only for 1 dose. 2 capsule 0 01/12/2023 01/12/2023 Comment on above: Take 2 capsules by m out one time only for 1 dose. ferrous sulfate 325 mg oral tablet (20 sources) Start: 03-31-2022 End: 08-19-2024 take 1 tablet by mouth twice daily Ferrous Sulfate (Iron) 325 mg (65 mg iron) Tablet Discontinued 65 mg PO TWICE A DAY March 31, 2022 12:00am August 19, 2024 9:22am take 140 mg by mouth twice daily at mealtime ferrous sulfate (SLOW FE) 140 mg (45 mg iron) TbER Take 140 mg by mouth twice daily with meals. 0 Active Comment on above: Take 140 mg by mouth twice daily with meals. ibuprofen 600 mg oral tablet (5 sources) Nonsteroidal Anti-inflammatory Drug Start: 2 End: 4 take 1 tablet by mouth every six hours Ibuprofen 600 mg Tablet Discontinued 600 mg PO EVERY 6 HOURS 0 April 03, 2022 12:00am August 19, 2024 9:22am L.acid/L.casei/B.bi f/B.christopher/FOS (PROBIOTIC BLEND ORAL) (16 sources) End: 2 L.acid/L.casei/B.bif/ B.christopher/FOS (PROBIOTIC BLEND ORAL) Take by mouth. 0 05/11/2022 Discontinued (Discontinued by Patient) L.acid/L.casei/B .bif/B.christopher/FOS (PROBIOTIC BLEND ORAL) Take by mouth. 0 Active Comment on above: Take by mouth. oxyCODONE hydrochloride 5 mg oral tablet (5 sources) Opioid Agonist Start: 04-03-2022 End: 08-19-2024 take 5-10 mg by mouth every six hours Oxycodone 5 mg Tablet Discontinued 5 - 10 mg PO EVERY 6 HOURS 10 7 April 03, 2022 August 19, 2024 9:22am Problems Active Problems Problem Classification Problem Date Documented Date Episodic/Chronic Anxiety disorders (20 sources) Fear associated with healthcare; Translations: [Fear of other medical care] Onset: 10-29-2024 07-28-2024 Chronic E Codes: Natural/environment (1 source) Tick bite; Translations: [Bitten or stung by nonvenomous insect and other nonvenomous arthropods, initial encounter] Episodic distress and abnormal forces of labor (6 sources) Liveborn with labor distress; Translations: [Labor and delivery complicated by stress, unspecified] Episodic Fluid and electrolyte disorders (14 sources) Hyponatremia; Translations: [Hypo-osmolality and hyponatremia] Onset: 03-30-2020 Resolved: 04-02-2020 04-02-2020 Episodic Immunizations and screening for infectious disease (1 source) Encounter for immunization; Translations: [Encounter for immunization] Onset: 12-24-2024 Episodic Nausea and vomiting (6 sources) Nausea and vomiting; Translations: [Nausea with vomiting, unspecified] 03-04-2022 Episodic Other and unspecified benign neoplasm (2 sources) Pituitary adenoma; Translations: [Benign neoplasm of pituitary gland] Episodic Other complications of ; puerperium affecting management of mother (20 sources) Deliveries by ; Translations: [Delivery by section] Episodic Comment on above: d/t intoleranc e, meconium in amniotic fluidRLTCS BS scheduled for 03/03 @ 7:15 with JV d/t intoleranc e, meconium in amniotic fluidRLTCS BS scheduled for 03/02 @ 7:15 with JV Other complications of (1 source) Anemia during - baby not yet delivered; Translations: [Anemia complicating , third trimester] Chronic Other complications of (20 sources) Anemia of ; Translations: [Anemia complicating , unspecified trimester] 12-24-2024 Chronic Comment on above: add FE Other complications of (6 sources) Dehydration; Translations: [Other specified related conditions, unspecified trimester] 03-04-2022 Episodic Other complications of (5 sources) Meconium in amniotic fluid affecting management of mother ; Translations: [Maternal care for other specified problems, unspecified trimester, not applicable or unspecified] 08-12-2024 Episodic Other complications of (5 sources) Cardiotochogram finding; Translations: [Maternal care for abnormalities of the heart rate or rhythm, third trimester, not applicable or unspecified] 08-12-2024 Episodic Other complications of (1 source) Maternal care for abnormalities of the heart rate or rhythm, third trimester, not applicable or unspecified; Translations: [Abnormality in heart rate or rhythm, antepartum condition or complication] Episodic Other complications of (1 source) Maternal care for other specified problems, unspecified trimester, not applicable or unspecified; Translations: [Other specified and placental problems, affecting management of mother, unspecified as to episode of care or not applicable] Episodic Other complications of (1 source) Urinary tract infection in ; Translations: [Unspecified infection of urinary tract in , unspecified trimester] 07-30-2024 Episodic Other complications of (20 sources) High risk ; Translations: [Supervision of other high risk pregnancies, first trimester] Onset: 08-26-2021 08-01-2024 Episodic Comment on above: PRR CIARA 5 girl Marie TOMASZ Domoniqeu : Rico Other complications of (15 sources) Uterine size for dates discrepancy; Translations: [Uterine size-date discrepancy, third trimester] 01-21-2025 Episodic Comment on above: growth us ordered Other complications of (1 source) Supervision of high risk , unspecified, first trimester; Translations: [Supervision of high risk , unspecified, first trimester] Onset: 02-12-2025 Episodic Other endocrine disorders (20 sources) Pituitary mass; Translations: [Other disorders of pituitary gland] Onset: 02-13-2020 02-13-2020 Chronic Other endocrine disorders (20 sources) Syndrome of inappropriate vasopressin secretion; Translations: [Syndrome of inappropriate secretion of antidiuretic hormone] Onset: 03-31-2020 03-31-2020 Chronic Other endocrine disorders (1 source) Other disorders of pituitary gland; Translations: [Other disorders of pituitary gland] Onset: 04-09-2024 Chronic Other nervous system disorders (5 sources) Postoperative pain ; Translations: [Other acute postprocedural pain] 08-12-2024 Episodic Other nutritional; endocrine; and metabolic disorders (1 source) H/O: thyroid disorder; Translations: [Personal history of other endocrine, nutritional and metabolic disease] 07-29-2024 Episodic Other screening for suspected conditions (not mental disorders or infectious disease) (1 source) Thyroid function tests abnormal; Translations: [Other specified abnormal findings of blood chemistry] Episodic Prolonged (1 source) Post-term of 40 to 42 weeks; Translations: [Post-term ] Episodic Residual codes; unclassified (1 source) Gestation period, 31 weeks; Translations: [31 weeks gestation of ] Episodic Residual codes; unclassified (1 source) Gestation period, 33 weeks; Translations: [33 weeks gestation of ] Episodic Residual codes; unclassified (1 source) Gestation period, 35 weeks; Translations: [35 weeks gestation of ] Episodic Residual codes; unclassified (8 sources) History of neoplasm of pituitary gland; Translations: [Personal history of other specified conditions] 10-29-2024 Episodic Residual codes; unclassified (1 source) Gestation period, 36 weeks; Translations: [36 weeks gestation of ] Episodic Residual codes; unclassified (1 source) Gestation period, 37 weeks; Translations: [37 weeks gestation of ] Episodic Residual codes; unclassified (1 source) Gestation period, 38 weeks; Translations: [38 weeks gestation of ] Episodic Residual codes; unclassified (8 sources) Gestation period, 40 weeks; Translations: [40 weeks gestation of ] Episodic Residual codes; unclassified (1 source) 40 weeks gestation of ; Translations: [ state, incidental] Episodic Residual codes; unclassified (1 source) Gestation period, 8 weeks; Translations: [8 weeks gestation of ] 08-01-2024 Episodic Thyroid disorders (2 sources) Acquired hypothyroidism; Translations: [Hypothyroidism, unspecified] Chronic Unclassified (4 sources) [facility] Education - COMMON Onset: 07-28-2024 07-28-2024 Unclassified (4 sources) Education - [place] Onset: 07-28-2024 07-28-2024 Past or Other Problems Problem Classification Problem Date Documented Date Episodic/Chronic Complications of surgical procedures or medical care (20 sources) Postoperative meningitis; Translations: [Other postprocedural complications and disorders of nervous system] Onset: 04-02-2020 Resolved: 01-26-2022 04-05-2020 Episodic Other complications of (20 sources) Rubella non-immune; Translations: [Supervision of other high risk pregnancies, unspecified trimester] Onset: 08-29-2021 08-29-2021 Episodic Other complications of (4 sources) Complication occurring during ; Translations: [ complication before ] Onset: 07-29-2024 07-29-2024 Episodic Other and delivery including normal (20 sources) Normal ; Translations: [Encounter for supervision of normal , unspecified, first trimester] Onset: 08-26-2021 08-26-2021 Episodic Comment on above: Declines NIPT/Kaitlynn r. afp declined. nl anatomy Other skin disorders (20 sources) Acne; Translations: [Other acne] Onset: 03-02-2011 Resolved: 01-21-2015 05-19-2021 Episodic Other skin disorders (20 sources) Excessive sweating; Translations: [Generalized hyperhidrosis] Onset: 03-08-2016 05-19-2021 Episodic Residual codes; unclassified (2 sources) Personal history of other specified conditions; Translations: [Personal history of other endocrine, metabolic, and immunity disorders] Onset: 09-29-2024 Episodic Residual codes; unclassified (1 source) 21 weeks gestation of ; Translations: [21 weeks gestation of ] Onset: 10-29-2024 Episodic Residual codes; unclassified (1 source) 17 weeks gestation of ; Translations: [17 weeks gestation of ] Onset: 09-29-2024 Episodic Screening and history of mental health and substance abuse codes (8 sources) H/O: anxiety state; Translations: [Personal history of other mental and behavioral disorders] Onset: 07-28-2024 07-28-2024 Episodic Results Test Name Value Interpretation Reference Range Facil ity Aircraft Restorer Office Visit Reporton 02-27-2025 Aircraft Restorer Office Visit Report [facility]'s [address], [address] [place] [address] OFFICE VISIT Date of Service: 02/27/25 MR#: [id number] Acct: [id number] Name: RODNEY NGUYEN Rep #: [id number] 0 : 1995 Provider: ELLEN booth Age/Sex: 29/F Location: [facility] [place] Status: Signed Intake Vital Signs 02/18/25 09:16 02/27/25 08:29 02/27/25 08:30 Height 5 ft 3 in 5 ft 3 in 5 ft 3 in Weight: 156 lb 2 oz BMI 27.6 BP 133/85 H Intake Visit Reasons: 38wk ob *jv csection Paid Search Marketing Strategist Required: No Is patient in pain?: No Allergies amoxicillin Allergy (Verified 02/27/25 08:27) Hives Penicillins Allergy (Verified 02/27/25 08:27) Hives Medications ???Medication ???Instructions ???Recorded ???Confirmed ???Type vit with calcium-iron 1 tab PO DAILY 03/31/22 02/27/25 History fum-folic acid 60 mg iron-1 mg tablet acetaminophen 500 mg tablet 1,000 mg (2 x 500 mg) PO Q6H #0 02/27/25 Rx tabs Last Menstrual Period: 05/30/24 Zika: Zika virus screening: Negative : No PFSH PFSH Medical History H/O: pituitary tumor Meconium in amniotic fluid affecting management of mother intolerance to labor, delivered, current hospitalization Postoperative pain Lactating mother Category II heart rate tracing during maternal care in third trimester Encounter for elective induction of labor 40 weeks gestation of Pituitary adenoma Surgical History H/O brain surgery H/O section Family History Grandfather Cancer, Onset Age: 70 Paternal Leukemia Heart disease Paternal Grandfather Cancer, Onset Age: 60 Maternal Prostate, lung cancer Social History adopted: No household members: spouse and children number of children: 1 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 history of recent travel: No sexually active: Yes Smoking Status: Never smoker alcohol intake: current alcohol intake frequency: holidays/special occasions only details: Not while substance use type: does not use well-balanced diet: daily or most days caffeine: Yes (occasional) Type: coffee Number of servings: 1 and tea Number of servings: 1 eating out: 1-3 times/week during the past year weight has: remained stable what type of physical activity do you participate in: walking frequency: 1-2 times per week duration: 15-30 minutes/day andreina/anglican: Taoist seatbelt use: always do you feel safe at home: Yes additional social history: Juanjose WARD History 2 Elective abortions Hx Para 1 Spontaneous abortions Hx # Term Pregnancies Ectopic pregnancies Hx # Pregnancies Multiple births # of living children 1 Past Pregnancies Del. Date Name GA/Weeks Outcome Route Bth Weight Gen Labor Lgth Anesthesia Del Locatn Provider FOB 04/01/22 Domonique 40 live - full term 7#3oz Female epidural [facility] Delivery Date: 04/01/22 Last Updated by: Denisse Wang c section due to distress HPI 38wk ob *jv csection Details: RODNEY NGUYEN is a 29 year old who presents for routine OB visit. OB Visit CIARA Calculator Estimated Delivery Date Method Current WG Current Estimate 03/06/25 LMP (Certain) 39w 0d Expected Delivery Route/Plan for repeat section Specific Issue/Plans Covid status: [] Flu vaccine: [] Tdap vaccine: given Rhogam: [] LARC form signed: yes Problem list reviewed and updated with the most current plan of care details and appropriate orders placed. Relevant counseling for the gestational age provided. Continue routine care and follow up unless otherwise noted in visit notes/problem list details Initial Weight: 129 lb Date -???-???-???-???-? ??-???-???-???-??? -???-???-???- EGA Weight BP Urine Prot -???-???-???-???-? ??-???-???-???-??? -???-???-???- Glucose FHR FuHt Pres Dilation -???-???-???-???-? ??-???-???-???-??? -???-???-???- Effaced St Visit Note 08/26/24 -???-???-???-???-? ??-???-???-???-??? -???-???-???- 12w 4d 129 lb 6 oz (+6 oz) 134/88 -???-???-???-???-? ??-???-???-???-??? -???-???-???- 168 -???-???-???-???-? ??-???-???-???-??? -???-???-???- JV- CRL cons istent with LMP and earlier us. She had her last baby with [facility]. cs for failure to progress and intolerance to labor. Declines NIPT. had new ob labs here and gc/ct at [facility]. will need records. 09/29/24 -???-???-???-???-? ??-???-???-???-??? -???-???-???- 17w 3d 133 lb (more content not included)... Normal [facility] - Chemistry and C hemistry - challengeOrdered By: Bethany Saldaña on 02-18-2025 Glucose Ql (U) Negative [facility] - UrinalysisOrder ed By: Bethany Saldaña on 02-18-2025 Protein Ql (U) Negative [facility] Aircraft Restorer Office Visit Reporton 02-18-2025 Aircraft Restorer Office Visit Report [facility]'s [address], [address] [place] [address] OFFICE VISIT Date of Service: 02/18/25 MR#: [id number] Acct: [id number] Name: RODNEY NGUYEN Rep #: [id number] : 1995 Provider: Dr. Bethany Sepulveda DO Age/Sex: 29/F [place] [facility] [facility] [place]: Signed Intake Vital Signs 08/26/24 10:03 02/09/25 09:14 02/18/25 09:15 02/18/25 09:16 Height 5 ft 3 in 5 ft 3 in 5 ft 3 in 5 ft 3 in Weight: 156 lb 8 oz BMI 27.7 BP 132/85 H Intake Visit Reasons: 37 wk ob *jv c/sec Paid Search Marketing Strategist Required: No Is patient in pain?: No Allergies amoxicillin Allergy (Verified 02/18/25 09:14) Hives Penicillins Allergy (Verified 02/18/25 09:14) Hives Medications ???Medication ???Instructions ???Recorded ???Confirmed ???Type vit with calcium-iron 1 tab PO DAILY 03/31/22 02/18/25 History fum-folic acid 60 mg iron-1 mg tablet acetaminophen 500 mg tablet 1,000 mg (2 x 500 mg) PO Q6H #0 02/18/25 Rx tabs Last Menstrual Period: 05/30/24 Zika: Zika virus screening: Negative : No PFSH PFSH Medical History H/O: pituitary tumor Meconium in amniotic fluid affecting management of mother intolerance to labor, delivered, current hospitalization Postoperative pain Lactating mother Category II heart rate tracing during maternal care in third trimester Encounter for elective induction of labor 40 weeks gestation of Pituitary adenoma Surgical History H/O brain surgery H/O section Family History Grandfather Cancer, Onset Age: 70 Paternal Leukemia Heart disease Paternal Grandfather Cancer, Onset Age: 60 Maternal Prostate, lung cancer Social History adopted: No household members: spouse and children number of children: 1 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 history of recent travel: No sexually active: Yes Smoking Status: Never smoker alcohol intake: current alcohol intake frequency: holidays/special occasions only details: Not while substance use type: does not use well-balanced diet: daily or most days caffeine: Yes (occasional) Type: coffee Number of servings: 1 and tea Number of servings: 1 eating out: 1-3 times/week during the past year weight has: remained stable what type of physical activity do you participate in: walking frequency: 1-2 times per week duration: 15-30 minutes/day andreina/anglican: Taoist seatbelt use: always do you feel safe at home: Yes additional social history: Juanjose WARD History 2 Elective abortions Hx Para 1 Spontaneous abortions Hx # Term Pregnancies Ectopic pregnancies Hx # Pregnancies Multiple births # of living children 1 Past Pregnancies Del. Date Name GA/Weeks Outcome Route Bth Weight Infant Gen Labor Lgth Anesthesia Del Locatn Provider FOB 04/01/22 Domonique 40 live - full term 7#3oz Female epidural [facility] Delivery Date: 04/01/22 Last Updated by: Denisse ibarra section due to distress HPI 37 wk ob *jv c/sec Details: RODNEY NGUYEN is a 29 year old who presents for routine OB visit. OB Visit CIARA Calculator Estimated Delivery Date Method Current WG Current Estimate 03/06/25 LMP (Certain) 37w 5d Expected Delivery Route/Plan for repeat section Specific Issue/Plans Covid status: [] Flu vaccine: [] Tdap vaccine: given Rhogam: [] LARC form signed: yes Problem list reviewed and updated with the most current plan of care details and appropriate orders placed. Relevant counseling for the gestational age provided. Continue routine care and follow up unless otherwise noted in visit notes/problem list details Initial Weight: 129 lb Date -???-???-???-???-? ??-???-???-???-??? -???-???-???- EGA Weight BP Urine Prot -???-???-???-???-? ??-???-???-???-??? -???-???-???- Glucose FHR FuHt Pres Dilation -???-???-???-???-? ??-???-???-???-??? -???-???-???- Effaced St Visit Note 08/26/24 -???-???-???-???-? ??-???-???-???-??? -???-???-???- 12w 4d 129 lb 6 oz (+6 oz) 134/88 -???-???-???-???-? ??-???-???-???-??? -???-???-???- 168 -???-???-???-???-? ??-???-???-???-??? -???-???-???- JV- CRL cons istent with LMP and earlier us. She had her last baby with [facility]. cs for failure to progress and intolerance to labor. Declines NIPT. had new ob labs here and gc/ct at [facility]. will need records. 09/29/24 -???-???-???-???-? ??-???-???-???-? (more content not included)... Normal [facility] Rule out Beta Strep (Grp. B) on 02-11-2025 PATSY Group B Beta Streptococcus is not isolated. Normal [facility] Comment on above: Performed By: #### L 3890.6100, L3890.6300, L509.8000, L501.9520, L3890.6005, L3100.5400, L100.0100, L509.4005, BTS #### [facility] Laboratory [address] [place], [place], [address] Laboratory - Chemistry and C hemistry - challengeOrdered By: Bethany Saldaña on 02-09-2025 Glucose Ql (U) Negative [facility] Laboratory - UrinalysisOrder ed By: Bethany Saldaña on 02-09-2025 Protein Ql (U) Negative [facility] [employer] Office Visit Reporton 02-09-2025 Aircraft Rest[employer] Office Visit Report [facility]'s [address], [address] [place] [address] OFFICE VISIT Date of Service: 02/09/25 MR#: [id number] Acct: [id number] Name: RODNEY NGUYEN Rep #: [id number] 1 : 1995 Provider: Dr. Bethany Sepulveda, Age/Sex: 29/F [place] [facility] [place]: Signed Intake Vital Signs 08/26/24 09:12 08/26/24 10:03 01/26/25 09:40 02/09/25 09:13 02/09/25 09:14 Height 5 ft 3 in 5 ft 3 in 5 ft 3 in 5 ft 3 in 5 ft 3 in Weight: 155 lb 8 oz BMI 27.5 BP 122/75 H Intake Visit Reasons: 36 wk ob *jv c/sec Paid Search Marketing Strategist Required: No Is patient in pain?: No Allergies amoxicillin Allergy (Verified 02/09/25 09:13) Hives Penicillins Allergy (Verified 02/09/25 09:13) Hives Medications ???Medication ???Instructions ???Recorded ???Confirmed ???Type vit with calcium-iron 1 tab PO DAILY 03/31/22 02/09/25 History fum-folic acid 60 mg iron-1 mg tablet acetaminophen 500 mg tablet 1,000 mg (2 x 500 mg) PO Q6H #0 02/09/25 Rx tabs Last Menstrual Period: 05/30/24 Zika: Zika virus screening: Negative : No PFSH PFSH Medical History H/O: pituitary tumor Meconium in amniotic fluid affecting management of mother intolerance to labor, delivered, current hospitalization Postoperative pain Lactating mother Category II heart rate tracing during maternal care in third trimester Encounter for elective induction of labor 40 weeks gestation of Pituitary adenoma Surgical History H/O brain surgery H/O section Family History Grandfather Cancer, Onset Age: 70 Paternal Leukemia Heart disease Paternal Grandfather Cancer, Onset Age: 60 Maternal Prostate, lung cancer Social History adopted: No household members: spouse and children number of children: 1 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 history of recent travel: No sexually active: Yes Smoking Status: Never smoker alcohol intake: current alcohol intake frequency: holidays/special occasions only details: Not while substance use type: does not use well-balanced diet: daily or most days caffeine: Yes (occasional) Type: coffee Number of servings: 1 and tea Number of servings: 1 eating out: 1-3 times/week during the past year weight has: remained stable what type of physical activity do you participate in: walking frequency: 1-2 times per week duration: 15-30 minutes/day andreina/anglican: Taoist seatbelt use: always do you feel safe at home: Yes additional social history: 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 Date Name GA/Weeks Outcome Route Bth Weight Infant Gen Labor Lgth Anesthesia Del Locatn Provider FOB 04/01/22 Domonique 40 live - full term 7#3oz Female epidural [facility] Delivery Date: 04/01/22 Last Updated by: Denisse Wang c section due to distress HPI 36 wk ob *jv c/sec Details: RODNEY NGUYEN is a 29 year old who presents for routine OB visit. OB Visit CIARA Calculator Estimated Delivery Date Method Current WG Current Estimate 03/06/25 LMP (Certain) 36w 3d Expected Delivery Route/Plan for repeat section Specific Issue/Plans Covid status: [] Flu vaccine: [] Tdap vaccine: given Rhogam: [] LARC form signed: yes Problem list reviewed and updated with the most current plan of care details and appropriate orders placed. Relevant counseling for the gestational age provided. Continue routine care and follow up unless otherwise noted in visit notes/problem list details Initial Weight: 129 lb Date -???-???-???-???-? ??-???-???-???-??? -???-???-???- EGA Weight BP Urine Prot -???-???-???-???-? ??-???-???-???-??? -???-???-???- Glucose FHR FuHt Pres Dilation -???-???-???-???-? ??-???-???-???-??? -???-???-???- Effaced St Visit Note 08/26/24 -???-???-???-???-? ??-???-???-???-??? -???-???-???- 12w 4d 129 lb 6 oz (+6 oz) 134/88 -???-???-???-???-? ??-???-???-???-??? -???-???-???- 168 -???-???-???-???-? ??-???-???-???-??? -???-???-???- JV- CRL cons istent with LMP and earlier us. She had her last baby with [facility]. cs for failure to progress and intolerance to labor. Declines NIPT. had new ob labs here and gc/ct at [facility]. will need records. 09/29/24 -???-?? (more content not included)... Normal [facility] Screening beta-hemolytic Str eptococcus cultureOrdered By: Bethany Saldaña on 02-09-2025 Beta-hemolytic Streptococcus culture Group B Beta Streptococcus is not isolated. 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 Bethany Sepulveda, DO Age/Sex: 29/F [place] [facility] [place]: Signed Intake Vital Signs 08/26/24 09:12 01/21/25 08:48 01/26/25 09:39 01/26/25 09:40 Height 5 ft 3 in 5 ft 3 in 5 ft 3 in 5 ft 3 in Weight: 151 lb 6 oz 154 lb 8 oz BMI 26.8 27.3 BP 133/75 H 124/81 H Intake Visit Reasons: 34 wk ob *jv csec Paid Search Marketing Strategist Required: No Is patient in pain?: No Allergies amoxicillin Allergy (Verified 01/26/25 09:37) Hives Penicillins Allergy (Verified 01/26/25 09:37) Hives Medications ???Medication ???Instructions ???Recorded ???Confirmed ???Type vit with calcium-iron 1 tab PO DAILY 03/31/22 01/26/25 History fum-folic acid 60 mg iron-1 mg tablet acetaminophen 500 mg tablet 1,000 mg (2 x 500 mg) PO Q6H #0 01/26/25 Rx tabs Last Menstrual Period: 05/30/24 Zika: Zika virus screening: Negative : No PFSH PFSH Medical History H/O: pituitary tumor Meconium in amniotic fluid affecting management of mother intolerance to labor, delivered, current hospitalization Postoperative pain Lactating mother Category II heart rate tracing during maternal care in third trimester Encounter for elective induction of labor 40 weeks gestation of Pituitary adenoma Surgical History H/O brain surgery H/O section Family History Grandfather Cancer, Onset Age: 70 Paternal Leukemia Heart disease Paternal Grandfather Cancer, Onset Age: 60 Maternal Prostate, lung cancer Social History adopted: No household members: spouse and children number of children: 1 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 history of recent travel: No sexually active: Yes Smoking Status: Never smoker alcohol intake: current alcohol intake frequency: holidays/special occasions only details: Not while substance use type: does not use well-balanced diet: daily or most days caffeine: Yes (occasional) Type: coffee Number of servings: 1 and tea Number of servings: 1 eating out: 1-3 times/week during the past year weight has: remained stable what type of physical activity do you participate in: walking frequency: 1-2 times per week duration: 15-30 minutes/day andreina/anglican: Taoist seatbelt use: always do you feel safe at home: Yes additional social history: Juanjose WARD History 2 Elective abortions Hx Para 1 Spontaneous abortions Hx # Term Pregnancies Ectopic pregnancies Hx # Pregnancies Multiple births # of living children 1 Past Pregnancies Del. Date Name GA/Weeks Outcome Route Bth Weight Infant Gen Labor Lgth Anesthesia Del Locatn Provider FOB 04/01/22 Domonique 40 live - full term 7#3oz Female epidural [facility] Delivery Date: 04/01/22 Last Updated by: Denisse Wang c section due to distress HPI 34 wk ob *jv csec Details: RODNEY NGUYEN is a 29 year old who presents for routine OB visit. OB Visit CIARA Calculator Estimated Delivery Date Method Current WG Current Estimate 03/06/25 LMP (Certain) 34w 3d Expected Delivery Route/Plan for repeat section Specific Issue/Plans Covid status: [] Flu vaccine: [] Tdap vaccine: given Rhogam: [] LARC form signed: yes Problem list reviewed and updated with the most current plan of care details and appropriate orders placed. Relevant counseling for the gestational age provided. Continue routine care and follow up unless otherwise noted in visit notes/problem list details Initial Weight: 129 lb Date -???-???-???-???-? ??-???-???-???-??? -???-???-???- EGA Weight BP Urine Prot -???-???-???-???-? ??-???-???-???-??? -???-???-???- Glucose FHR FuHt Pres Dilation -???-???-???-???-? ??-???-???-???-??? -???-???-???- Effaced St Visit Note 08/26/24 -???-???-???-???-? ??-???-???-???-??? -???-???-???- 12w 4d 129 lb 6 oz (+6 oz) 134/88 -???-???-???-???-? ??-???-???-???-??? -???-???-???- 168 -???-???-???-???-? ??-???-???-???-??? -???-???-???- JV- CRL cons istent with LMP and earlier us. She had her last baby with [facility]. cs for failure to progress and intolerance to labor. Declines NIPT. had new ob labs here and gc/ct at [facility]. will need records. 09/29/24 -???-???-? (more content not included)... Normal [facility] Laboratory - Chemistry and C hemistry - challengeOrdered By: Rema Fry on 01-21-2025 Glucose Ql (U) Negative [facility] Laboratory - UrinalysisOrder ed By: Rema Fry on 01-21-2025 Protein Ql (U) Trace [facility] [employer] Office Visit Reporton 01-21-2025 Aircraft Restorer Office Visit Report [facility]'s [address], [address] [place] [address] OFFICE VISIT Date of Service: 01/21/25 MR#: [id number] Acct: [id number] Name: RODNEY NGUYEN Rep #: [id number] 9 : 1995 Provider: Dr. Rema atwood MD Age/Sex: 29/F [place] [facility] [place]: Signed Intake Vital Signs 08/26/24 09:12 12/24/24 10:01 01/08/25 08:54 01/21/25 08:48 Height 5 ft 3 in 5 ft 3 in 5 ft 3 in 5 ft 3 in Weight: 151 lb 6 oz BMI 26.8 BP 133/75 H Intake Visit Reasons: 32 wk ob *jv c/sec Paid Search Marketing Strategist Required: No Is patient in pain?: No Feel stressed/tense/ner vous/anxious/diffi culty sleeping: not at all Allergies amoxicillin Allergy (Verified 01/21/25 08:49) Hives Penicillins Allergy (Verified 01/21/25 08:49) Hives Medications ???Medication ???Instructions ???Recorded ???Confirmed ???Type vit with calcium-iron 1 tab PO DAILY 03/31/22 01/21/25 History fum-folic acid 60 mg iron-1 mg tablet acetaminophen 500 mg tablet 1,000 mg (2 x 500 mg) PO Q6H #0 01/21/25 Rx tabs Last Menstrual Period: 05/30/24 Zika: Zika virus screening: Negative : No PFSH PFSH Medical History H/O: pituitary tumor Meconium in amniotic fluid affecting management of mother intolerance to labor, delivered, current hospitalization Postoperative pain Lactating mother Category II heart rate tracing during maternal care in third trimester Encounter for elective induction of labor 40 weeks gestation of Pituitary adenoma Surgical History H/O brain surgery H/O section Family History Grandfather Cancer, Onset Age: 70 Paternal Leukemia Heart disease Paternal Grandfather Cancer, Onset Age: 60 Maternal Prostate, lung cancer Social History adopted: No household members: spouse and children number of children: 1 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 history of recent travel: No sexually active: Yes Smoking Status: Never smoker alcohol intake: current alcohol intake frequency: holidays/special occasions only details: Not while substance use type: does not use well-balanced diet: daily or most days caffeine: Yes (occasional) Type: coffee Number of servings: 1 and tea Number of servings: 1 eating out: 1-3 times/week during the past year weight has: remained stable what type of physical activity do you participate in: walking frequency: 1-2 times per week duration: 15-30 minutes/day andreina/anglican: Taoist seatbelt use: always do you feel safe at home: Yes 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 Date Name GA/Weeks Outcome Route Bth Weight [facility] Domonique 40 live - full term 7#3oz Female epidural [facility] Karely Angela Delivery Date: 04/01/22 Last Updated by: Denisse Wang c section due to distress HPI 32 wk ob *jv c/sec Details: RODNEY NGUYEN is a 29 year old who presents for routine OB visit. OB Visit CIARA Calculator Estimated Delivery Date Method Current Current Estimate 03/06/25 LMP (Certain) 33w 5d Expected Delivery Route/Plan for repeat section Specific Issue/Plans Covid status: [] Flu vaccine: [] Tdap vaccine: given Rhogam: [] LARC form signed: yes Problem list reviewed and updated with the most current plan of care details and appropriate orders placed. Relevant counseling for the gestational age provided. Continue routine care and follow up unless otherwise noted in visit notes/problem list details Initial Weight: 129 lb Date -???-???-???-???-? ??-???-???-???-??? -???-???-???- EGA Weight BP Urine Prot -???-???-???-???-? ??-???-???-???-??? -???-???-???- Glucose FHR FuHt Pres Dilation -???-???-???-???-? ??-???-???-???-??? -???-???-???- Effaced St Visit Note 08/26/24 -???-???-???-???-? ??-???-???-???-??? -???-???-???- 12w 4d 129 lb 6 oz (+6 oz) 134/88 -???-???-???-???-? ??-???-???-???-??? -???-???-???- 168 -???-???-???-???-? ??-???-???-???-??? -???-???-???- JV- CRL cons istent with LMP and earlier us. She had her last baby with [facility]. cs for failure to progress and intolerance to labor. Declines NIPT. had new ob labs here and gc/ct at [facility]. will nee (more content not included)... Normal [facility] Laboratory - Chemistry and C hemistry - challengeOrdered By: Bethany Saldaña on 01-08-2025 Glucose Ql (U) Negative [facility] Laboratory - UrinalysisOrder ed By: Bethany Saldaña on 01-08-2025 Protein Ql (U) Negative [facility] [employer] Office Visit Reporton 01-08-2025 Aircraft Restorer Office Visit Report [facility]'s [address], [address] [place] [address] OFFICE VISIT Date of Service: 01/08/25 MR#: [id number] Acct: [id number] Name: RODNEY NGUYEN Rep #: [id number] 1 : 1995 Provider: Dr. Bethany Sepulveda DO Age/Sex: 29/F [place] [facility] [place]: Signed Intake Vital Signs 08/26/24 09:12 12/24/24 10:01 01/08/25 08:54 Height 5 ft 3 in 5 ft 3 in 5 ft 3 in Weight: 150 lb 4 oz BMI 26.6 BP 123/82 H Intake Visit Reasons: 30 wk ob *jv c/sec Chief Complaint: 30 Week OB Paid Search Marketing Strategist Required: No Is patient in pain?: No Allergies amoxicillin Allergy (Verified 01/08/25 08:54) Hives Penicillins Allergy (Verified 01/08/25 08:54) Hives Medications ???Medication ???Instructions ???Recorded ???Confirmed ???Type vit with calcium-iron 1 tab PO DAILY 03/31/22 01/08/25 History fum-folic acid 60 mg iron-1 mg tablet acetaminophen 500 mg tablet 1,000 mg (2 x 500 mg) PO Q6H #0 01/08/25 Rx tabs Last Menstrual Period: 05/30/24 Zika: Zika virus screening: Negative : No PFSH PFSH Medical History H/O: pituitary tumor Meconium in amniotic fluid affecting management of mother intolerance to labor, delivered, current hospitalization Postoperative pain Lactating mother Category II heart rate tracing during maternal care in third trimester Encounter for elective induction of labor 40 weeks gestation of Pituitary adenoma Surgical History H/O brain surgery H/O section Family History Grandfather Cancer, Onset Age: 70 Paternal Leukemia Heart disease Paternal Grandfather Cancer, Onset Age: 60 Maternal Prostate, lung cancer Social History adopted: No household members: spouse and children number of children: 1 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 history of recent travel: No sexually active: Yes Smoking Status: Never smoker alcohol intake: current alcohol intake frequency: holidays/special occasions only details: Not while substance use type: does not use well-balanced diet: daily or most days caffeine: Yes (occasional) Type: coffee Number of servings: 1 and tea Number of servings: 1 eating out: 1-3 times/week during the past year weight has: remained stable what type of physical activity do you participate in: walking frequency: 1-2 times per week duration: 15-30 minutes/day andreina/anglican: Taoist seatbelt use: always do you feel safe at home: Yes additional social history: Juanjose WARD History 2 Elective abortions Hx Para 1 Spontaneous abortions Hx # Term Pregnancies Ectopic pregnancies Hx # Pregnancies Multiple births # of living children 1 Past Pregnancies Del. Date Name GA/Weeks Outcome Route Bth Weight Infant Gen Labor Lgth Anesthesia Del Locatn Provider FOB 04/01/22 Domonique 40 live - full term 7#3oz Female epidural [facility] Delivery Date: 04/01/22 Last Updated by: Denisse ibarra section due to distress HPI 30 wk ob *jv c/sec Details: RODNEY NGUYEN is a 29 year old who presents for routine OB visit. OB Visit CIARA Calculator Estimated Delivery Date Method Current WG Current Estimate 03/06/25 LMP (Certain) 31w 6d Expected Delivery Route/Plan for repeat section Specific Issue/Plans Covid status: [] Flu vaccine: [] Tdap vaccine: given Rhogam: [] LARC form signed: yes Problem list reviewed and updated with the most current plan of care details and appropriate orders placed. Relevant counseling for the gestational age provided. Continue routine care and follow up unless otherwise noted in visit notes/problem list details Initial Weight: 129 lb Date -???-???-???-???-? ??-???-???-???-??? -???-???-???- EGA Weight BP Urine Prot -???-???-???-???-? ??-???-???-???-??? -???-???-???- Glucose FHR FuHt Pres Dilation -???-???-???-???-? ??-???-???-???-??? -???-???-???- Effaced St Visit Note 08/26/24 -???-???-???-???-? ??-???-???-???-??? -???-???-???- 12w 4d 129 lb 6 oz (+6 oz) 134/88 -???-???-???-???-? ??-???-???-???-??? -???-???-???- 168 -???-???-???-???-? ??-???-???-???-??? -???-???-???- JV- CRL cons istent with LMP and earlier us. She had her last baby with [facility]. cs for failure to progress and intolerance to labor. Declines NIPT. had new ob labs here and gc/ct at [facility]. will need records. 09/29/24 -???-???-???-???-? ??-???-?? (more content not included)... Normal [facility] Laboratory - Chemistry and C hemistry - challengeOrdered By: Karen Garcia on 12-24-2024 Glucose Ql (U) Negative [facility] Laboratory - UrinalysisOrder ed By: Karen Garcia on 12-24-2024 Protein Ql (U) Negative [facility] [employer] Office Visit Reporton 12-24-2024 Aircraft Restorer Office Visit Report [facility]'s [address], [address] [place] [address] OFFICE VISIT Date of Service: 12/24/24 MR#: [id number] Acct: [id number] Name: RODNEY NGUYEN Rep #: [id number] 3 : 1995 Provider: JOHNNY rodriguez Age/Sex: 29/F [place] [facility] [place]: Signed Intake Vital Signs 08/26/24 09:12 11/25/24 08:43 12/24/24 10:01 Height 5 ft 3 in 5 ft 3 in 5 ft 3 in Weight: 147 lb BMI 26.0 BP 114/72 Intake Visit Reasons: 28 wk ob *jv c/sec Chief Complaint: 28 Week OB Paid Search Marketing Strategist Required: No Is patient in pain?: No Allergies amoxicillin Allergy (Verified 12/24/24 10:02) Hives Penicillins Allergy (Verified 12/24/24 10:02) Hives Medications ???Medication ???Instructions ???Recorded ???Confirmed ???Type vit with calcium-iron 1 tab PO DAILY 03/31/22 12/24/24 History fum-folic acid 60 mg iron-1 mg tablet acetaminophen 500 mg tablet 1,000 mg (2 x 500 mg) PO Q6H #0 12/24/24 Rx tabs Last Menstrual Period: 05/30/24 Zika: Zika virus screening: Negative : Yes PFSH PFSH Medical History H/O: pituitary tumor Meconium in amniotic fluid affecting management of mother intolerance to labor, delivered, current hospitalization Postoperative pain Lactating mother Category II heart rate tracing during maternal care in third trimester Encounter for elective induction of labor 40 weeks gestation of Pituitary adenoma Surgical History H/O brain surgery H/O section Family History Grandfather Cancer, Onset Age: 70 Paternal Leukemia Heart disease Paternal Grandfather Cancer, Onset Age: 60 Maternal Prostate, lung cancer Social History adopted: No household members: spouse and children number of children: 1 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 history of recent travel: No sexually active: Yes Smoking Status: Never smoker alcohol intake: current alcohol intake frequency: holidays/special occasions only details: Not while substance use type: does not use well-balanced diet: daily or most days caffeine: Yes (occasional) Type: coffee Number of servings: 1 and tea Number of servings: 1 eating out: 1-3 times/week during the past year weight has: remained stable what type of physical activity do you participate in: walking frequency: 1-2 times per week duration: 15-30 minutes/day andreina/anglican: Taoist seatbelt use: always do you feel safe at home: Yes additional social history: 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 Date Name GA/Weeks Outcome Route Bth Weight Infant Gen Labor Lgth Anesthesia Del Locatn Provider FOB 04/01/22 Domonique 40 live - full term 7#3oz Female epidural [facility] Karely [place] Delivery Date: 04/01/22 Last Updated by: Denisse ibarra section due to distress HPI 28 wk ob *jv c/sec Details: RODNEY NGUYEN is a 29 year old who presents for routine OB visit. OB Visit CIARA Calculator Estimated Delivery Date Method Current WG Current Estimate 03/06/25 LMP (Certain) 29w 5d Expected Delivery Route/Plan for repeat section Specific Issue/Plans Covid status: [] Flu vaccine: [] Tdap vaccine: given Rhogam: [] LARC form signed: yes Problem list reviewed and updated with the most current plan of care details and appropriate orders placed. Relevant counseling for the gestational age provided. Continue routine care and follow up unless otherwise noted in visit notes/problem list details Initial Weight: 129 lb Date -???-???-???-???-? ??-???-???-???-??? -???-???-???- EGA Weight BP Urine Prot -???-???-???-???-? ??-???-???-???-??? -???-???-???- Glucose FHR FuHt Pres Dilation -???-???-???-???-? ??-???-???-???-??? -???-???-???- Effaced St Visit Note 08/26/24 -???-???-???-???-? ??-???-???-???-??? -???-???-???- 12w 4d 129 lb 6 oz (+6 oz) 134/88 -???-???-???-???-? ??-???-???-???-??? -???-???-???- 168 -???-???-???-???-? ??-???-???-???-??? -???-???-???- JV- CRL cons istent with LMP and earlier us. She had her last baby with [facility]. cs for failure to progress and intolerance to labor. Declines NIPT. had new ob labs here and gc/ct at [facility]. will need records. 09/29/24 -???-???-???-???-? ??-???-???-???-??? -???-? (more content not included)... Normal [facility] Absolute lymphocyte countOrd ered By: Bethany Saldaña on 12-08-2024 Lymphocytes Auto (Unsp spec) [#/Vol] 1.96 10*3/uL 0.83-4.51 [facility] Absolute neutrophil countOrd ered By: Bethany Saldaña on 12-08-2024 Neutrophils (Bld) [#/Vol] 6.4 10*3/uL 2.0-7.7 [facility] Automated blood erythrocyte countOrdered By: Bethany Saldaña on 12-08-2024 RBC (Bld) [#/Vol] 3.49 10*6/uL Low 4.2-5.4 [facility] Comment on above: Performed By: #### L 3890.6100, L3890.6300, L509.8000, L501.9520, L3890.6005, L3100.5400, L100.0100, L509.4005, BTS #### [facility] [address] [place], [place], [phone] Automated blood hematocrit ( percentage)Ordered By: Bethany Saldaña on 12-08-2024 Hematocrit (Bld) [Volume fraction] 32.2 % Low 37-47 [facility] Comment on above: Performed By: #### L 3890.6100, L3890.6300, L509.8000, L501.9520, L3890.6005, L3100.5400, L100.0100, L509.4005, BTS #### [facility] [address] [place], [place], [phone] Automated lymphocyte count a s percentage of total leukocytesOrdered By: Bethany Saldaña on 12-08-2024 Lymphocytes/100 WBC (Bld) 22.3 % Normal 19-41 [facility] Comment on above: Performed By: #### L 3890.6100, L3890.6300, L509.8000, L501.9520, L3890.6005, L3100.5400, L100.0100, L509.4005, BTS #### [facility] [address] [place], [place], [phone] Lymphocytes/100 WBC Auto (Unsp spec) 22.3 % - [facility] Basophil percentageOrdered B y: Bethany Saldaña on 12-08-2024 Basophils/100 WBC (Bld) 0.3 % Normal 0-1 [facility] Comment on above: Performed By: #### L 3890.6100, L3890.6300, L509.8000, L501.9520, L3890.6005, L3100.5400, L100.0100, L509.4005, BTS #### [facility] [address] [place], [address] CBC W/Diff, Automatedon 11-22 Absolute Lymph 1.96 X10 3/uL Normal 0.83-4.51 [facility] Comment on above: Performed By: #### L 3890.6100, L3890.6300, L509.8000, L501.9520, L3890.6005, L3100.5400, L100.0100, L509.4005, BTS #### [facility] [address] [place], [place], [phone] Absolute Neut 6.4 X10 3/uL Normal 2.0-7.7 [facility] Comment on above: Performed By: #### L 3890.6100, L3890.6300, L509.8000, L501.9520, L3890.6005, L3100.5400, L100.0100, L509.4005, BTS #### [facility] [address] [place], [address] [phone]) IG% 0.500 Normal 0.0-0.9 [facility] Comment on above: Result Comment: IG% - Immature Granulocytes (promyelocytes, myelocytes and metamyelocytes) > 1% indicates that a LEFT SHIFT is Present. Performed By: #### L 3890.6100, L3890.6300, L509.8000, L501.9520, L3890.6005, L3100.5400, L100.0100, L509.4005, BTS #### [facility] [address] [place], [place], [phone] ([phone]) Nucleated RBC (Bld) [#/Vol] 0 10*3/uL Normal 0-5 [facility] Comment on above: Performed By: #### L 3890.6100, L3890.6300, L509.8000, L501.9520, L3890.6005, L3100.5400, L100.0100, L509.4005, BTS #### [facility] [address] [place], [address] [phone] RDW SD 41.7 fl Normal 35.1-43.9 [facility] Comment on above: Performed By: #### L 3890.6100, L3890.6300, L509.8000, L501.9520, L3890.6005, L3100.5400, L100.0100, L509.4005, BTS #### [facility] [address] [place], [place], [phone] Eosinophil percentageOrdered By: Bethany Saldaña on 12-08-2024 Eosinophils/100 WBC (Bld) 0.2 % Normal 0-5 [facility] Comment on above: Performed By: #### L 3890.6100, L3890.6300, L509.8000, L501.9520, L3890.6005, L3100.5400, L100.0100, L509.4005, BTS #### [facility] [address] [place], [place], [phone] Erythrocyte distribution wid th ratioOrdered By: Bethany Saldaña on 12-08-2024 Erythrocyte distribution width (RBC) [Ratio] 12.4 % Normal 11.6-14.6 [facility] Comment on above: Performed By: #### L 3890.6100, L3890.6300, L509.8000, L501.9520, L3890.6005, L3100.5400, L100.0100, L509.4005, BTS #### [facility] [address] [place], [place], [phone] Erythrocyte distribution wid th standard deviationOrdered By: Bethany Saldaña on 12-08-2024 Erythrocyte distribution width (RBC) [Entitic vol] 41.7 fL 35.1-43.9 [facility] Erythrocyte distribution width (RBC) [Ratio] 41.7 fl 35.1-43.9 [facility] Glucose Challenge Gest 1H 50 tor 12-08-2024 GLU GEST 50g 1H 118 mg/dL Normal 70-140 [facility] Comment on above: Performed By: #### L 3890.6100, L3890.6300, L509.8000, L501.9520, L3890.6005, L3100.5400, L100.0100, L509.4005, BTS #### [facility] [address] [place], [place], [phone] Glucose measurement at 2 roly rs post-dose gestational glucose tolerance testOrdered By: Bethany Saldaña on 12-08-2024 Glucose [Mass/Vol] 118 mg/dL 70-140 [facility] Hemoglobin measurementOrdere d By: Bethany Piotr on 12-08-2024 Hemoglobin (Bld) [Mass/Vol] 10.9 g/dL Low 12.0-15.0 [facility] Comment on above: Performed By: #### L 3890.6100, L3890.6300, L509.8000, L501.9520, L3890.6005, L3100.5400, L100.0100, L509.4005, BTS #### [facility] [address] [facility] [place], [place], [phone] Immature granulocytes/100 WB C Auto (Bld)Ordered By: Bethany Piotr on 12-08-2024 Immature granulocytes/100 WBC (Bld) 0.500 % 0.0-0.9 [facility] Comment on above: IG% - Immature Granu locytes (promyelocytes, myelocytes and metamyelocytes) > 1% indicates that a LEFT SHIFT is Present. L3890.6006on 12-08-2024 HIV Non-Reactive Normal Nonreactive [facility] Comment on above: Result Comment: Non- Reactive Reactive Repeatedly reactive samples must be confirmed according to CDC recommended confirmatory algorithms. The subresults for either HIVAG or AHIV can be used as an aid in the selection of the confirmation algorithm for reactive samples. Send out specimens with Reactive results to [facility] for confirmation. Order the HIV antibody detection and differentiation: lc#[id number] Performed By: #### L 3890.6100, L3890.6300, L509.8000, L501.9520, L3890.6005, L3100.5400, L100.0100, L509.4005, BTS #### [facility] [address] [place], [address] L509.8002on 12-08-2024 Syphilis Abs Non-Reactive Normal Nonreactive [facility] Comment on above: Performed By: #### L 3890.6100, L3890.6300, L509.8000, L501.9520, L3890.6005, L3100.5400, L100.0100, L509.4005, BTS #### [facility] [address] [place], [address] Lymphocytes Auto (Unsp spec) [#/Vol]Ordered By: Bethany Saldaña on 12-08-2024 Lymphocytes (Bld) [#/Vol] 1.96 10*3/uL 0.83-4.51 [facility] MCV (mean corpuscular volume ) determinationOrdered By: Bethany Saldaña on 12-08-2024 MCV (RBC) [Entitic vol] 92.3 fL Normal 81-99 [facility] Comment on above: Performed By: #### L 3890.6100, L3890.6300, L509.8000, L501.9520, L3890.6005, L3100.5400, L100.0100, L509.4005, BTS #### [facility] [address] [place], [address] Mean corpuscular hemoglobin (MCH) determinationOrdered By: Bethany Saldaña on 12-08-2024 MCH (RBC) [Entitic mass] 31.2 pg Normal 27.0-32.0 [facility] Comment on above: Performed By: #### L 3890.6100, L3890.6300, L509.8000, L501.9520, L3890.6005, L3100.5400, L100.0100, L509.4005, BTS #### [facility] [address] [place], [address] Mean corpuscular hemoglobin concentration (MCHC) determinationOrdered By: Bethany Saldaña on 12-08-2024 MCHC (RBC) [Mass/Vol] 33.9 g/dL Normal 32-36 [facility] Comment on above: Performed By: #### L 3890.6100, L3890.6300, L509.8000, L501.9520, L3890.6005, L3100.5400, L100.0100, L509.4005, BTS #### [facility] [address] [place], [place], [phone] Mean platelet volume determi nationOrdered By: Bethany Saldaña on 12-08-2024 Platelet mean volume (Bld) [Entitic vol] 9.7 fL Normal 6.2-12.0 [facility] Comment on above: Performed By: #### L 3890.6100, L3890.6300, L509.8000, L501.9520, L3890.6005, L3100.5400, L100.0100, L509.4005, BTS #### [facility] [address] [place], [place], [phone] Monocyte percentageOrdered B y: Bethany Saldaña on 12-08-2024 Monocytes/100 WBC (Bld) 3.8 % Normal 0-10 [facility] Comment on above: Performed By: #### L 3890.6100, L3890.6300, L509.8000, L501.9520, L3890.6005, L3100.5400, L100.0100, L509.4005, BTS #### [facility] [address] [place], [place], [phone] Neutrophil percentageOrdered By: Bethany Saldaña on 12-08-2024 Neutrophils/100 WBC (Bld) 72.9 % High 47-70 [facility] Comment on above: Performed By: #### L 3890.6100, L3890.6300, L509.8000, L501.9520, L3890.6005, L3100.5400, L100.0100, L509.4005, BTS #### [facility] [address] [facility] [place], [address] No Panel InformationOrdered By: Bethany Saldaña on 12-08-2024 HIV (1&2) Antibody Non-Reactive Nonreactive [facility] Comment on above: Non-ReactiveReactive Repeatedly reactive samples must be confirmed according to CDC recommended confirmatory algorithms. The subresults for either HIVAG or AHIV can be used as an aid in the selection of the confirmation algorithm for reactive samples.Send out specimens with Reactive results to [facility] for confirmation.Order the HIV antibody detection and differentiation: #[id number] Nucleated red blood cell per centageOrdered By: Bethany Saldaña on 12-08-2024 Nucleated RBC/100 WBC (Bld) [Ratio] 0 % 0-5 [facility] Platelet countOrdered By: Jak Saldaña on 12-08-2024 Platelets (Bld) [#/Vol] 285 10*3/uL Normal 150-450 [facility] Comment on above: Performed By: #### L 3890.6100, L3890.6300, L509.8000, L501.9520, L3890.6005, L3100.5400, L100.0100, L509.4005, BTS #### [facility] [address] [place], [address] T. pallidum abOrdered By: Jak Saldaña on 12-08-2024 Syphilis Total Antibody Non-Reactive Nonreactiv e [facility] White blood cell (WBC) count Ordered By: Bethany Saldaña on 12-08-2024 WBC (Bld) [#/Vol] 8.8 10*3/uL Normal 4.4-11.0 [facility] Comment on above: Performed By: #### L 3890.6100, L3890.6300, L509.8000, L501.9520, L3890.6005, L3100.5400, L100.0100, L509.4005, BTS #### [facility] [address] [place], [address] Laboratory - Chemistry and C hemistry - challengeOrdered By: Bethany Saldaña on 11-25-2024 Glucose Ql (U) Negative [facility] Laboratory - UrinalysisOrder ed By: Bethany Saldaña on 11-25-2024 Protein Ql (U) Negative [facility] [employer] Office Visit Reporton 11-25-2024 [employer] Office Visit Report [facility] [address], [address] [place] [address] OFFICE VISIT Date of Service: 11/25/24 MR#: [id number] Acct: [id number] Name: RODNEY NGUYEN Rep #: [id number] 2 : 1995 Provider: Dr. Bethany Sepulveda DO Age/Sex: 29/F [place] [facility] [place]: Signed Intake Vital Signs 08/26/24 09:12 10/29/24 10:54 11/25/24 08:43 11/25/24 08:43 Height 5 ft 3 in 5 ft 3 in 5 ft 3 in 5 ft 3 in Weight: 144 lb BMI 25.4 BP 126/86 H Intake Visit Reasons: 24 wk ob *jv c/sec Paid Search Marketing Strategist Required: No Is patient in pain?: No Allergies amoxicillin Allergy (Verified 11/25/24 08:42) Hives Penicillins Allergy (Verified 11/25/24 08:42) Hives Medications ???Medication ???Instructions ???Recorded ???Confirmed ???Type vit with calcium-iron 1 tab PO DAILY 03/31/22 11/25/24 History fum-folic acid 60 mg iron-1 mg tablet acetaminophen 500 mg tablet 1,000 mg (2 x 500 mg) PO Q6H #0 11/25/24 Rx tabs Last Menstrual Period: 05/30/24 Zika: Zika virus screening: Negative : No PFSH PFSH Medical History H/O: pituitary tumor Meconium in amniotic fluid affecting management of mother intolerance to labor, delivered, current hospitalization Postoperative pain Lactating mother Category II heart rate tracing during maternal care in third trimester Encounter for elective induction of labor 40 weeks gestation of Pituitary adenoma Surgical History H/O brain surgery H/O section Family History Grandfather Cancer, Onset Age: 70 Paternal Leukemia Heart disease Paternal Grandfather Cancer, Onset Age: 60 Maternal Prostate, lung cancer Social History adopted: No household members: spouse and children number of children: 1 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 history of recent travel: No sexually active: Yes Smoking Status: Never smoker alcohol intake: current alcohol intake frequency: holidays/special occasions only details: Not while substance use type: does not use well-balanced diet: daily or most days caffeine: Yes (occasional) Type: coffee Number of servings: 1 and tea Number of servings: 1 eating out: 1-3 times/week during the past year weight has: remained stable what type of physical activity do you participate in: walking frequency: 1-2 times per week duration: 15-30 minutes/day andreina/anglican: Taoist seatbelt use: always do you feel safe at home: Yes additional social history: [employer] History 2 Elective abortions Hx Para 1 Spontaneous abortions Hx # Term Pregnancies Ectopic pregnancies Hx # Pregnancies Multiple births # of living children 1 Past Pregnancies Del. Date Name GA/Weeks Outcome Route Bth Weight Infant Gen Labor Lgth Anesthesia Del Locatn Provider FOB 04/01/22 Domonique 40 live - full term 7#3oz Female epidural [facility] [place] Delivery Date: 04/01/22 Last Updated by: Denisse Wang c section due to distress HPI 24 wk ob *jv c/sec Details: RODNEY NGUYEN is a 29 year old who presents for routine OB visit. OB Visit CIARA Calculator Estimated Delivery Date Method Current WG Current Estimate 03/06/25 LMP (Certain) 25w 4d Expected Delivery Route/Plan for repeat section Specific Issue/Plans Covid status: [] Flu vaccine: [] Tdap vaccine: [] Rhogam: [] LARC form signed: [] Problem list reviewed and updated with the most current plan of care details and appropriate orders placed. Relevant counseling for the gestational age provided. Continue routine care and follow up unless otherwise noted in visit notes/problem list details Initial Weight: 129 lb Date -???-???-???-???-? ??-???-???-???-??? -???-???-???- EGA Weight BP Urine Prot -???-???-???-???-? ??-???-???-???-??? -???-???-???- Glucose FHR FuHt Pres Dilation -???-???-???-???-? ??-???-???-???-??? -???-???-???- Effaced St Visit Note 08/26/24 -???-???-???-???-? ??-???-???-???-??? -???-???-???- 12w 4d 129 lb 6 oz (+6 oz) 134/88 -???-???-???-???-? ??-???-???-???-??? -???-???-???- 168 -???-???-???-???-? ??-???-???-???-??? -???-???-???- JV- CRL cons istent with LMP and earlier us. She had her last baby with [facility]. cs for failure to progress and intolerance to labor. Declines NIPT. had new ob labs here and gc/ct at [facility]. will need records. 09/29/24 -???-???-???-???-? ??-???-???-???-??? -???-?? (more content not included)... 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 Rema atwood MD Age/Sex: 29/F [place] [facility] [place]: Signed Intake Vital Signs 04/11/22 09:50 09/29/24 10:49 10/29/24 10:53 10/29/24 10:54 Height 5 ft 3 in 5 ft 3 in 5 ft 3 in 5 ft 3 in Weight: 136 lb 2 oz BMI 24.0 BP 122/77 H Intake Visit Reasons: 20wk OB *jv c/sec Paid Search Marketing Strategist Required: No Is patient in pain?: No Feel stressed/tense/ner vous/anxious/diffi culty sleeping: not at all Allergies amoxicillin Allergy (Verified 10/29/24 10:53) Hives Penicillins Allergy (Verified 10/29/24 10:53) Hives Medications ???Medication ???Instructions ???Recorded ???Confirmed ???Type vit with calcium-iron 1 tab PO DAILY 03/31/22 10/29/24 History fum-folic acid 60 mg iron-1 mg tablet acetaminophen 500 mg tablet 1,000 mg (2 x 500 mg) PO Q6H #0 10/29/24 Rx tabs Last Menstrual Period: 05/30/24 Zika: Zika virus screening: Negative : No Have you fallen in the past year?: No PFSH PFSH Medical History (Updated 10/29/24 @ 11:[address] Rema Fry MD) H/O: pituitary tumor Meconium in amniotic fluid affecting management of mother intolerance to labor, delivered, current hospitalization Postoperative pain Lactating mother Category II heart rate tracing during maternal care in third trimester Encounter for elective induction of labor 40 weeks gestation of Pituitary adenoma Surgical History H/O brain surgery H/O section Family History Grandfather Cancer, Onset Age: 70 Paternal Leukemia Heart disease Paternal Grandfather Cancer, Onset Age: 60 Maternal Prostate, lung cancer Social History adopted: No household members: spouse and children number of children: 1 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 history of recent travel: No sexually active: Yes Smoking Status: Never smoker alcohol intake: current alcohol intake frequency: holidays/special occasions only details: Not while substance use type: does not use well-balanced diet: daily or most days caffeine: Yes (occasional) Type: coffee Number of servings: 1 and tea Number of servings: 1 eating out: 1-3 times/week during the past year weight has: remained stable what type of physical activity do you participate in: walking frequency: 1-2 times per week duration: 15-30 minutes/day andreina/anglican: Taoist seatbelt use: always do you feel safe at home: Yes additional social history: 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 Date Name GA/Weeks Outcome Route Bth Weight Infant Gen Labor Lgth Anesthesia Del Locatn Provider FOB 04/01/22 Domonique 40 live - full term 7#3oz Female epidural [facility] [place] Delivery Date: 04/01/22 Last Updated by: Denisse Wang c section due to distress HPI 20wk OB *jv c/sec Details: RODNEY NGUYEN is a 29 year old who presents for routine OB visit. OB Visit CIARA Calculator Estimated Delivery Date Method Current WG Current Estimate 03/06/25 LMP (Certain) 21w 5d Expected Delivery Route/Plan for repeat section Specific Issue/Plans Covid status: [] Flu vaccine: [] Tdap vaccine: [] Rhogam: [] LARC form signed: [] Problem list reviewed and updated with the most current plan of care details and appropriate orders placed. Relevant counseling for the gestational age provided. Continue routine care and follow up unless otherwise noted in visit notes/problem list details Initial Weight: Not Recorded Date -???-???-???-???-? ??-???-???-???-??? -???-???-???- EGA Weight BP Urine Prot -???-???-???-???-? ??-???-???-???-??? -???-???-???- Glucose FHR FuHt Pres Dilation -???-???-???-???-? ??-???-???-???-??? -???-???-???- Effaced St Visit Note 08/26/24 -???-???-???-???-? ??-???-???-???-??? -???-???-???- 12w 4d 129 lb 6 oz 134/88 -???-???-???-???-? ??-???-???-???-??? -???-???-???- 168 -???-???-???-???-? ??-???-???-???-??? -???-???-???- JV- CRL cons istent with LMP and earlier us. She had her last baby with [facility]. cs for failure to progress and intolerance to labor. Declines NIPT. had new (more content not included)... 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 [facility]'s [address], [address] [place] [address] OFFICE VISIT Date of Service: 09/29/24 MR#: [id number] Acct: [id number] Name: RODNEY NGUYEN Rep #: [id number] : 1995 Provider: ELLEN Myers ams Age/Sex: 29/F [place] [facility] [place]: Signed Intake Vital Signs 04/11/22 09:50 08/26/24 10:03 09/29/24 10:45 09/29/24 10:49 Height 5 ft 3 in 5 ft 3 in 5 ft 3 in 5 ft 3 in Weight: 133 lb BMI 23.6 BP 134/79 H 113/76 Intake Visit Reasons: 16wk OB *jv c/sec Paid Search Marketing Strategist Required: No Is patient in pain?: No Allergies amoxicillin Allergy (Verified 09/29/24 10:46) Hives Penicillins Allergy (Verified 09/29/24 10:46) Hives Medications ???Medication ???Instructions ???Recorded ???Confirmed ???Type vit with calcium-iron 1 tab PO DAILY 03/31/22 09/29/24 History fum-folic acid 60 mg iron-1 mg tablet acetaminophen 500 mg tablet 1,000 mg (2 x 500 mg) PO Q6H #0 04/03/22 09/29/24 Rx tabs Last Menstrual Period: 05/30/24 Zika: Zika virus screening: Negative : No Have you fallen in the past year?: No PFSH PFSH Medical History Meconium in amniotic fluid affecting management of mother intolerance to labor, delivered, current hospitalization Postoperative pain Lactating mother Category II heart rate tracing during maternal care in third trimester Encounter for elective induction of labor 40 weeks gestation of Pituitary adenoma Surgical History H/O brain surgery H/O section Family History Grandfather Cancer, Onset Age: 70 Paternal Leukemia Heart disease Paternal Grandfather Cancer, Onset Age: 60 Maternal Prostate, lung cancer Social History adopted: No household members: spouse and children number of children: 1 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 history of recent travel: No sexually active: Yes Smoking Status: Never smoker alcohol intake: current alcohol intake frequency: holidays/special occasions only details: Not while substance use type: does not use well-balanced diet: daily or most days caffeine: Yes (occasional) Type: coffee Number of servings: 1 and tea Number of servings: 1 eating out: 1-3 times/week during the past year weight has: remained stable what type of physical activity do you participate in: walking frequency: 1-2 times per week duration: 15-30 minutes/day andreina/anglican: Taoist seatbelt use: always do you feel safe at home: Yes additional social history: 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 Date Name GA/Weeks Outcome Route Bth Weight Gen Labor Lgth Anesthesia Del Locatn Provider FOB 04/01/22 Domonique 40 live - full term 7#3oz Female epidural [facility] Karely Angela Delivery Date: 04/01/22 Last Updated by: Denisse Wang c section due to distress HPI 16wk OB *jv c/sec Details: RODNEY NGUYEN is a 29 year old who presents for routine OB visit. OB Visit CIARA Calculator Estimated Delivery Date Method Current Current Estimate 03/06/25 LMP (Certain) 17w 3d Expected Delivery Route/Plan for repeat section Specific Issue/Plans Covid status: [] Flu vaccine: [] Tdap vaccine: [] Rhogam: [] LARC form signed: [] Problem list reviewed and updated with the most current plan of care details and appropriate orders placed. Relevant counseling for the gestational age provided. Continue routine care and follow up unless otherwise noted in visit notes/problem list details Initial Weight: Not Recorded Date -???-???-???-???-? ??-???-???-???-??? -???-???-???- EGA Weight BP Urine Prot -???-???-???-???-? ??-???-???-???-??? -???-???-???- Glucose FHR FuHt Pres Dilation -???-???-???-???-? ??-???-???-???-??? -???-???-???- Effaced St Visit Note 08/26/24 -???-???-???-???-? ??-???-???-???-??? -???-???-???- 12w 4d 129 lb 6 oz 134/88 -???-???-???-???-? ??-???-???-???-??? -???-???-???- 168 -???-???-???-???-? ??-???-???-???-??? -???-???-???- JV- CRL cons istent with LMP and earlier us. She [facility] with [facility] cs for failure to progress and intolerance to labor. Declines NIPT. had new ob labs here and gc/ct at [facility]. will need records. 09/29/24 -???-???-???-???-? ??-???-???-???-??? -???-???-???- 17w (more content not included)... Normal [facility] Urine Cultureon 08-28-2024 URC Escherichia coli [place] Count 11,000-25,000 Escherichia coli: REACTION Ampicillin Islt DEVIN <=2 Ampicillin+Sulbac Islt DEVIN <=2 S ceFAZolin Islt DEVIN <=4 S Cefepime Islt DEVIN <=0.12 S cefTRIAXone Islt DEVIN <=0.25 S Ciprofloxacin Islt DEVIN <=0.25 S B-Lactamase Extended Susc Islt NEG Gentamicin Islt DEVIN <=1 S Imipenem Islt DEVIN <=0.25 S levoFLOXacin Islt DEVIN <=0.12 S Nitrofurantoin Islt DEVIN <=16 S Pip+Tazo Islt DEVIN <=4 S Tobramycin Islt DEVIN <=1 S TMP SMX Islt DEVIN <=20 S Normal [facility] Comment on above: Performed By: #### L 3890.6100, L3890.6300, L509.8000, L501.9520, L3890.6005, L3100.5400, L100.0100, L509.4005, BTS #### [facility] [address] [place], [address] Aircraft Restorer Office Visit Reporton 08-26-2024 Aircraft Restorer Office Visit Report [facility] Women[facility] [address], [address] [place] [address] OFFICE VISIT Date of Service: 08/26/24 MR#: [id number] Acct: [id number] Name: RODNEY NGUYEN Rep #: [id number] : 1995 Provider: Dr. Bethany Sepulveda DO Age/Sex: 29/F [place] [facility] [place]: Signed Intake Vital Signs 04/11/22 09:50 08/26/24 09:11 08/26/24 09:12 Height 5 ft 3 in 5 ft 3 in 5 ft 3 in Weight: 129 lb 6 oz BMI 22.8 BP 134/88 H Intake Visit Reasons: NOB LMP 05/30 Paid Search Marketing Strategist Required: No Is patient in pain?: No Allergies amoxicillin Allergy (Verified 08/26/24 09:11) Hives Penicillins Allergy (Verified 08/26/24 09:11) Hives Medications ???Medication ???Instructions ???Recorded ???Confirmed ???Type vit with calcium-iron 1 tab PO DAILY 03/31/22 08/26/24 History fum-folic acid 60 mg iron-1 mg tablet acetaminophen 500 mg tablet 1,000 mg (2 x 500 mg) PO Q6H #0 04/03/22 08/26/24 Rx tabs Last Menstrual Period: 05/30/24 Zika: Zika virus screening: Negative : No PFSH PFSH Medical History Meconium in amniotic fluid affecting management of mother intolerance to labor, delivered, current hospitalization Postoperative pain Lactating mother Category II heart rate tracing during maternal care in third trimester Encounter for elective induction of labor 40 weeks gestation of Pituitary adenoma Surgical History H/O brain surgery H/O section Family History Grandfather Cancer, Onset Age: 70 Paternal Leukemia Heart disease Paternal Grandfather Cancer, Onset Age: 60 Maternal Prostate, lung cancer Social History adopted: No household members: spouse and children number of children: 1 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 history of recent travel: No sexually active: Yes Smoking Status: Never smoker alcohol intake: current alcohol intake frequency: holidays/special occasions only details: Not while substance use type: does not use well-balanced diet: daily or most days caffeine: Yes (occasional) Type: coffee Number of servings: 1 and tea Number of servings: 1 eating out: 1-3 times/week during the past year weight has: remained stable what type of physical activity do you participate in: walking frequency: 1-2 times per week duration: 15-30 minutes/day andreina/anglican: Taoist seatbelt use: always do you feel safe at home: Yes 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 Date Name GA/Weeks Outcome Route Bth Weight Infant Gen Labor Lgth Anesthesia Del Locatn Provider FOB 04/01/22 Domonique 40 live - full term 7#3oz Female epidural WC [place] Delivery Date: 04/01/22 Last Updated by: Denisse Wang c section due to distress HPI NOB LMP 05/30 Details: RODNEY NGUYEN is a 29 year old who presents for New OB visit. OB Visit CIARA Calculator Estimated Delivery Date Method Current WG Current Estimate 03/06/25 LMP (Certain) 12w 4d Comments: HIV: Urine Culture: Sequential Screen: NIPT Screen: Estimated Due Date: 03/06/25 Expected Delivery Route/Plan for repeat section Specific Issue/Plans Covid status: [] Flu vaccine: [] Tdap vaccine: [] Rhogam: [] LARC form signed: [] Problem list reviewed and updated with the most current plan of care details and appropriate orders placed. Relevant counseling for the gestational age provided. Continue routine care and follow up unless otherwise noted in visit notes/problem list details Initial Weight: Not Recorded Date -???-???-???-???-? ??-???-???-???-??? -???-???-???- EGA Weight BP Urine Prot -???-???-???-???-? ??-???-???-???-??? -???-???-???- Glucose FHR FuHt Pres Dilation -???-???-???-???-? ??-???-???-???-??? -???-???-???- Effaced St Visit Note 08/26/24 -???-???-???-???-? ??-???-???-???-??? -???-???-???- 12w 4d 129 lb 6 oz 134/88 -???-???-???-???-? ??-???-???-???-??? -???-???-???- 168 -???-???-???-???-? ??-???-???-???-??? -???-???-???- JV- CRL cons istent with LMP and earlier us. She [facility] her [facility] with [facility]. cs for failure to progress and intolerance to labor. Declines NIPT. had new ob labs here and gc/ct at [facility]. will need records. Menstrual History (more content not included)... Normal [facility] Urine cultureOrdered By: Rosangela Saldaña on 08-26-2024 Bacteria identified Cx Nom (U) Escherichia coli Abnormal [facility] PROLACTIN 4465on 08-16-2024 PROLACTIN 16.9 ng/mL Normal 4.8-33.4 [facility] Comment on above: Result Comment: Perf ormed at: - [facility] [address] [id number] Employee Relations Consultant: Jose De Los Santos PhD, Phone: [phone] Performed By: #### L 3890.6100, L3890.6300, L509.8000, L501.9520, L3890.6005, L3100.5400, L100.0100, L509.4005, BTS #### [facility] [address] [place], [place], [id number] CBC W/Diff, Automatedon 07-26 Absolute Lymph 1.91 X10 3/uL Normal 0.83-4.51 [facility] Comment on above: Performed By: #### L 3890.6100, L3890.6300, L509.8000, L501.9520, L3890.6005, L3100.5400, L100.0100, L509.4005, BTS #### [facility] [address] [place], [place], [phone] Absolute Neut 3.9 X10 3/uL Normal 2.0-7.7 [facility] Comment on above: Performed By: #### L 3890.6100, L3890.6300, L509.8000, L501.9520, L3890.6005, L3100.5400, L100.0100, L509.4005, BTS #### [facility] [address] [place], [address] Basophils/100 WBC (Bld) 0.5 % Normal 0-1 [facility] Comment on above: Performed By: #### L 3890.6100, L3890.6300, L509.8000, L501.9520, L3890.6005, L3100.5400, L100.0100, L509.4005, BTS #### [facility] [address] [place], [address] Eosinophils/100 WBC (Bld) 0.6 % Normal 0-5 [facility] Comment on above: Performed By: #### L 3890.6100, L3890.6300, L509.8000, L501.9520, L3890.6005, L3100.5400, L100.0100, L509.4005, BTS #### [facility] [address] [place], [address] ([address] Erythrocyte distribution width (RBC) [Ratio] 12.4 % Normal 11.6-14.6 [facility] Comment on above: Performed By: #### L 3890.6100, L3890.6300, L509.8000, L501.9520, L3890.6005, L3100.5400, L100.0100, L509.4005, BTS #### [facility] [address] [place], [address] ([address] Hematocrit (Bld) [Volume fraction] 39.1 % Normal 37-47 [facility] Comment on above: Performed By: #### L 3890.6100, L3890.6300, L509.8000, L501.9520, L3890.6005, L3100.5400, L100.0100, L509.4005, BTS #### [facility] [address] [place], [address] ( Hemoglobin (Bld) [Mass/Vol] 13.3 g/dL Normal 12.0-15.0 [facility] Comment on above: Performed By: #### L 3890.6100, L3890.6300, L509.8000, L501.9520, L3890.6005, L3100.5400, L100.0100, L509.4005, BTS #### [facility] [address] [place], [address] IG% 0.600 Normal 0.0-0.9 [facility] Comment on above: Result Comment: IG% - Immature Granulocytes (promyelocytes, myelocytes and metamyelocytes) > 1% indicates that a LEFT SHIFT is Present. Performed By: #### L 3890.6100, L3890.6300, L509.8000, L501.9520, L3890.6005, L3100.5400, L100.0100, L509.4005, BTS #### [facility] [address] [place], [address] Lymphocytes/100 WBC (Bld) 30.6 % Normal 19-41 [facility] Comment on above: Performed By: #### L 3890.6100, L3890.6300, L509.8000, L501.9520, L3890.6005, L3100.5400, L100.0100, L509.4005, BTS #### [facility] [address] [place], [address] MCH (RBC) [Entitic mass] 30.6 pg Normal 27.0-32.0 [facility] Comment on above: Performed By: #### L 3890.6100, L3890.6300, L509.8000, L501.9520, L3890.6005, L3100.5400, L100.0100, L509.4005, BTS #### [facility] [address] [place], [address] MCHC (RBC) [Mass/Vol] 34.0 g/dL Normal 32-36 [facility] Comment on above: Performed By: #### L 3890.6100, L3890.6300, L509.8000, L501.9520, L3890.6005, L3100.5400, L100.0100, L509.4005, BTS #### [facility] [address] [place], [address] MCV (RBC) [Entitic vol] 90.1 fL Normal 81-99 [facility] Comment on above: Performed By: #### L 3890.6100, L3890.6300, L509.8000, L501.9520, L3890.6005, L3100.5400, L100.0100, L509.4005, BTS #### [facility] [address] [place], [address] Monocytes/100 WBC (Bld) 5.1 % Normal 0-10 [facility] Comment on above: Performed By: #### L 3890.6100, L3890.6300, L509.8000, L501.9520, L3890.6005, L3100.5400, L100.0100, L509.4005, BTS #### [facility] [address], [address] Neutrophils/100 WBC (Bld) 62.6 % Normal 47-70 [facility] Comment on above: Performed By: #### L 3890.6100, L3890.6300, L509.8000, L501.9520, L3890.6005, L3100.5400, L100.0100, L509.4005, BTS #### [facility] [address] [place], [address] Nucleated RBC (Bld) [#/Vol] 0 10*3/uL Normal 0-5 [facility] Comment on above: Performed By: #### L 3890.6100, L3890.6300, L509.8000, L501.9520, L3890.6005, L3100.5400, L100.0100, L509.4005, BTS #### [facility] [address] [place], [address] Platelet mean volume (Bld) [Entitic vol] 9.8 fL Normal 6.2-12.0 [facility] Comment on above: Performed By: #### L 3890.6100, L3890.6300, L509.8000, L501.9520, L3890.6005, L3100.5400, L100.0100, L509.4005, BTS #### [facility] [address] [place], [address] Platelets (Bld) [#/Vol] 307 10*3/uL Normal 150-450 [facility] Comment on above: Performed By: #### L 3890.6100, L3890.6300, L509.8000, L501.9520, L3890.6005, L3100.5400, L100.0100, L509.4005, BTS #### [facility] [address] [place], [address] RBC (Bld) [#/Vol] 4.34 10*6/uL Normal 4.2-5.4 [facility] Comment on above: Performed By: #### L 3890.6100, L3890.6300, L509.8000, L501.9520, L3890.6005, L3100.5400, L100.0100, L509.4005, BTS #### [facility] [address] [place], [address] RDW SD 40.7 fl Normal 35.1-43.9 [facility] Comment on above: Performed By: #### L 3890.6100, L3890.6300, L509.8000, L501.9520, L3890.6005, L3100.5400, L100.0100, L509.4005, BTS #### [facility] [address] [place], [place], [id number] WBC (Bld) [#/Vol] 6.2 10*3/uL Normal 4.4-11.0 [facility] Comment on above: Performed By: #### L 3890.6100, L3890.6300, L509.8000, L501.9520, L3890.6005, L3100.5400, L100.0100, L509.4005, BTS #### [facility] [address] [place], [address] HIV - WCHon 08-15-2024 HIV Non-Reactive Normal Nonreactive [facility] Comment on above: Order Comment: Reaso n for Exam: Performed By: #### L 3890.6100, L3890.6300, L509.8000, L501.9520, L3890.6005, L3100.5400, L100.0100, L509.4005, BTS #### [facility] [address] [place], [address] Hepatitis B Surface Antigeno n 08-15-2024 HEP B Surf Ag Non-Reactive [facility] Comment on above: Order Comment: Reaso n for Exam: Performed By: #### L 3890.6100, L3890.6300, L509.8000, L501.9520, L3890.6005, L3100.5400, L100.0100, L509.4005, BTS #### [facility] [address] [place], [address] Hepatitis C Antibodyon 08-15 Hepatitis C AB Non-Reactive Normal Nonreactive [facility] Comment on above: Order Comment: Reaso n for Exam: Result Comment: Non Reactive: < 0.8 Equivocal: >/= 0.8 to < 1.0 Reactive: >/= 1.0 The CDC requires that a reactive/equivocal HCV antibody result be sent out for confirmation. HCV Quant by PCR testing. Performed By: #### L 3890.6100, L3890.6300, L509.8000, L501.9520, L3890.6005, L3100.5400, L100.0100, L509.4005, BTS #### [facility] [address] [place], [address] L509.8000on 08-15-2024 Syphilis Abs Non-Reactive Normal [facility] Comment on above: Order Comment: Reaso n for Exam: Performed By: #### L 3890.6100, L3890.6300, L509.8000, L501.9520, L3890.6005, L3100.5400, L100.0100, L509.4005, BTS #### [facility] [address] [place], [place], [id number] Rubella IgGon 08-15-2024 Rubella IgG Reactive Normal Nonreactive [facility] Comment on above: Order Comment: Reaso n for Exam: Result Comment: Anti body Results Interpretation of Immune Status Non Reactive Presumed Non-Immune Equivocal Equivocal Reactive Presumed Immune Performed By: #### L 3890.6100, L3890.6300, L509.8000, L501.9520, L3890.6005, L3100.5400, L100.0100, L509.4005, BTS #### [facility] [address] [place], [place], [id number] Thyroid Stim Hormone (TSH)on 08-15-2024 TSH 0.993 uIU/mL Normal 0.358-3.740 [facility] Comment on above: Performed By: #### L 3890.6100, L3890.6300, L509.8000, L501.9520, L3890.6005, L3100.5400, L100.0100, L509.4005, BTS #### [facility] [address] [place], [address] Type AND Screenon 08-15-2024 Ab SCREEN GEL Negative Normal [facility] Comment on above: Order Comment: PN Performed By: #### L 3890.6100, L3890.6300, L509.8000, L501.9520, L3890.6005, L3100.5400, L100.0100, L509.4005, BTS #### [facility] [address] [place], [place], [id number] ABO and Rh group Nom (Bld) Blood group A Rh(D) positive Normal [facility] Comment on above: Order Comment: PN Performed By: #### L 3890.6100, L3890.6300, L509.8000, L501.9520, L3890.6005, L3100.5400, L100.0100, L509.4005, BTS #### [facility] [address] [place], [place], [id number] Bacteria identified Cx Nom ( U)Ordered By: Sylvia Black on 07-30-2024 Interpretation and review of laboratory results Abnormal [facility] This test was developed and its performance characteristics determined by the [facility]'s [facility] Medicine [place] ([facility]). It has not been cleared or approved by the FDA. -[facility] is regulated under CLIA as qualified to perform high-complexity testing. This test is used for clinical purposes. It should not be regarded as investigational or for research. [facility] URINE CULTUREOrdered By: Dena Black on 07-30-2024 Bacteria identified Cx Nom (U) >=100,000 CFU/ml Escherichia coli Abnormal [facility] BACTERIAL VAGINOSIS NAATon 1 09-28-2023 Interpretation and review of laboratory results Normal [facility] Lactobacillus crispatus+gasseri+burks ii + Gardnerella vaginalis + Atopobium vaginae rRNA CHINYERE+probe Ql (Vag fld) Negative Negative for bacterial vaginosis [facility] C. trachomatis+N. gonorrhoea e DNA CHINYERE+probe Ql (Unsp spec)on 07-29-2024 C. trachomatis rRNA CHINYERE+probe Ql (Unsp spec) Negative Negative for Chlamydia trachomatis by amplificaton [facility] Interpretation and review of laboratory results Normal [facility] N. gonorrhoeae rRNA CHINYERE+probe Ql (Unsp spec) Negative Negative for Neisseria gonorrhoeae by amplification [facility] BERNADETTE/TRICHOMONAS NAATon 1 09-28-2023 C. glabrata RNA CHINYERE+probe Ql (Vag fld) Negative Negative for Bernadette glabrata [facility] Bernadette sp DNA CHINYERE+probe Ql (Vag fld) Negative Negative for Bernadette species [facility] Interpretation and review of laboratory results Normal [facility] T. 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 FHR 163 bpm Recommendations Follow up for NT scan if desired Method Transabdominal and transvaginal ultrasound examination Delgado . Number of embryos: 1 Dating LMP on: 05/30/2024 GA by LMP 8 w + 3 d CIARA by LMP: 03/06/2025 Ultrasound examination on: 07/28/2024 GA by U/S based upon: CRL GA by U/S 8 w + 2 d CIARA by U/S: 03/07/2025 Assigned: based on the LMP, selected on 07/28/2024 Assigned GA 8 w + 3 d Assigned CIARA: 03/06/2025 Biometry Standard FHR 163 bpm CRL 18.2 mm 8w 2d 61% [place] Assessment Gestational sac: visualized Location: intrauterine Yolk sac: visualized Embryo: visualized CRL 18.2 mm 8w 2d 61% [place] Cardiac activity: present FHR 163 bpm General Evaluation Cardiac activity present. FHR 163 bpm Performed By: Zulma Saenz CNM Read By: Zulma Saenz CNM MATERNAL MEDICINE [facility] BACTERIAL VAGINOSIS NAATon 1 09-27-2023 Lactobacillus crispatus+gasseri+burks ii + Gardnerella vaginalis + Atopobium vaginae rRNA CHINYERE+probe Ql (Vag fld) Negative Normal Negative for bacterial vaginosis [facility] Comment on above: Order Comment: Speci men Type: SWAB Ordering Facility: [facility] Address: [address] [place] [address] Performed By: #### C VTV, BVAMP #### [facility] CLIA [id number] [address] [place] [address] [place] [address] [place] Bacteria Ur Culton 4 Bacteria identified Cx Nom (U) ORGANISM ID: 1 >=100,000 CFU/ml Escherichia coli ORGANISM ID: 1 (ESCHERICHIA COLI) ANTIBIOTIC INTERPRETATION DEVIN STATUS REFERENCE RANGE Ampicillin S <=2 F Susceptible <=8 , Intermediate >8 , Resistant >16 Cefazolin S <=4 F Susceptible 0-16 , Intermediate <0 or >16 , Resistant >16 For uncomplicated urinary tract infections, cefazolin results can be used to predict susceptibility or resistance to cephalexin. Ceftriaxone S <=1 F Susceptible <=1 , Intermediate >1 , Resistant >=4 Cefepime S <=1 F Susceptible <=2 , Susceptible-Dose Dependent >2 , Resistant >=16 Ertapenem S <=0.5 F Susceptible <=0.5 , Intermediate >.5 , Resistant >1 Meropenem S <=0.25 F Susceptible <=1 , Intermediate >1 , Resistant >2 Ampicillin/Sulbact S <=2 F Susceptible <=8 , Intermediate >8 , Resistant >16 Piperacillin/Tazob ac S <=4 F Susceptible <16 , Susceptible-Dose Dependent >=16 , Resistant >=32 Gentamicin S <=1 F Susceptible <=2 , Intermediate >2 , Resistant >=8 Tobramycin S <=1 F Susceptible <4 , Intermediate >=4 , Resistant >=8 Trimeth sulfameth S <=20 F Susceptible <=40 , Resistant >40 Ciprofloxacin S <=0.25 F Susceptible <0.5 , Intermediate >=.5 , Resistant >=1 Nitrofurantoin S <=16 F Susceptible <=32 , Intermediate >32 , Resistant >64 Abnormal [facility] Comment on above: Performed By: #### 6 30-4 #### [facility] CLIA [id number] [address] [place] [address] [place] C. trachomatis+N. gonorrhoea e DNA CHINYERE+probe Ql (Unsp spec)on 07-28-2024 C. trachomatis rRNA CHINYERE+probe Ql (Unsp spec) Negative Normal Negative for Chlamydia trachomatis by amplificaton [facility] Comment on above: Order Comment: Speci men Type: SWAB Ordering Facility: [facility] Address: [address] [place] [address] Performed By: #### 3 6902-5 #### [facility] CLIA [id number] [address] [place] [address] [place] N. gonorrhoeae rRNA CHINYERE+probe Ql (Unsp spec) Negative Normal Negative for Neisseria gonorrhoeae by amplification [facility] Comment on above: Order Comment: Speci men Type: SWAB Ordering Facility: [facility] Address: [address] [place] [address] Performed By: #### 3 6902-5 #### [facility] CLIA [id number] [address] [place] [address] [place] BERNADETTE/TRICHOMONAS NAATon 1 09-27-2023 C. glabrata RNA CHINYERE+probe Ql (Vag fld) Negative Normal Negative for Bernadette glabrata [facility] Comment on above: Order Comment: Speci men Type: SWAB Ordering Facility: [facility] Address: [address] [place] [address] Performed By: #### C VTV, BVAMP #### [facility] CLIA [id number] [address] [place] [address] [place] Bernadette sp DNA CHINYERE+probe Ql (Vag fld) Negative Normal Negative for Bernadette species [facility] Comment on above: Order Comment: Speci men Type: SWAB Ordering Facility: [facility] Address: [address] [place] [address] Performed By: #### C VTV, BVAMP #### [facility] CLIA [id number] [address] [place] [address] [place] T. vaginalis DNA CHINYERE+probe Ql (Unsp spec) Negative Normal Negative for Trichomonas vaginalis by amplification [facility] Comment on above: Order Comment: Speci men Type: SWAB Ordering Facility: [facility] Address: [address] [place] [address] Performed By: #### C VTV, BVAMP #### [facility] CLIA [id number] [address] [place] [address] [place] [employer] ULTRASOUNDon 07-28-20 Radiology Study observation (narrative) Drake oseguera [facility] 07-23-2024 [place] Telephone (OBGYWM) -------- RODNEY NGUYEN ([id number]) 1995 F Date Time Provider Department 07/23/24 ZULMA SAENZ During your visit today, we recorded the following information about you: Sana Ortiz LPN 07/23/2024 2:15 PM Signed Called patient to review NOB questions. No answer- left message to call clinic. CALLY Mata Kimberly, LPN 07/23/2024 2:48 PM Signed Patient returned call. NOB questions completed. Sana Ortiz LPN Allergies As of Date: 07/23/2024 Noted Allergy Reaction AMOXICILLIN 01/14/2013 8 - GI Upset AUGMENTIN (AMOXICILLIN-POT CLAVUL*09/16/2008 2 - Rash Comments: Tolerated ceftriaxone diring 03/2020 admission Date Reviewed: 07/23/2024 Reviewed by: Sana Ortiz LPN - Fully Assessed Reason for Visit: Appointment [186] Prescriptions as of 07/23/2024 - Knhokqva-Wa-Rld-Fe -FA ( VITAMIN) tab Take 1 tablet by mouth once daily. Meds Comments as of 04/11/2020: 04/09/[address] Slade regarding potential severe interaction between Cipro and zofran/iron. pt will be taking iron in the middle of the day and has not been taking any zofran. Problem List As Of Date 07/23/2024 Noted Resolved Well adolescent visit [Z00.129] 03/02/2011 01/26/2022 Acne [L70.9] 03/02/2011 01/21/2015 Acne Vulgaris: Grade III (occ IV by hx) Inflamm*03/15/2012 Excessive sweating [R61] 03/08/2016 Pituitary mass (HCC) [E23.6] 02/13/2020 Status post selective transsphenoidal pituitary*03/24/20 20 Hyponatremia [E87.1] 03/30/2020 04/02/2020 SIADH (syndrome of inappropriate ADH production* 020 Postoperative meningitis [G97.82, G03.8] 04/02/2020 Postoperative CSF leak [G97.82, G96.00] 04/05/2020 01/26/2022 Encounter for supervision of normal i*08/26/2021 Rubella non-immune status, antepartum [O09.899,*08/29/20 21 Encounter Status:Closed by SA[facility]TIZ [facility]23/[facility] (OBGYWM) -------- RODNEY NGUYEN ([id number]) 1995 F Date Time Provider Department 07/17/24 CHARLENE ATKINS During your visit today, we recorded the following information about you: Opal Baird RN 07/17/2024 8:49 AM Signed LMP 05/30/24 - 6w6d Patient calling to see if medicine ball tea drink from [email or web address] is safe with . Ingredients are listed as water, lemonade, honey, Valerie Sidman Mint Green Tea and [place] Tranquility Herbal Tea. She initially read that it was fine with , but now has heard some mixed reviews regarding that. MARCIA Brooke Courtney, APRN.CNM 07/17/2024 1:02 PM Signed Ingredients appear fine. MAURILIO Emanuel Trisha, RN 07/17/2024 1:55 PM Signed Patient notified. Opal Baird RN Allergies As of Date: 07/17/2024 Noted Allergy Reaction AMOXICILLIN 01/14/2013 8 - GI Upset AUGMENTIN (AMOXICILLIN-POT CLAVUL*09/16/2008 2 - Rash Comments: Tolerated ceftriaxone diring 03/2020 admission Date Reviewed: 03/07/2023 Reviewed by: Bernice Wan MA - Fully Assessed Reason for Visit: Question (OB Question) [6012] Cmt: Prescriptions as of 07/17/2024 - Uphpqekr-Ok-Lix-Fe -FA ( VITAMIN) tab Take 1 tablet by mouth once daily. Meds Comments as of 04/11/2020: 04/09/[address] Slade regarding potential severe interaction between Cipro and zofran/iron. pt will be taking iron in the middle of the day and has not been taking any zofran. Problem List As Of Date 07/17/2024 Noted Resolved Well adolescent visit [Z00.129] 03/02/2011 01/26/2022 Acne [L70.9] 03/02/2011 01/21/2015 Acne Vulgaris: Grade III (occ IV by hx) Inflamm*03/15/2012 Excessive sweating [R61] 03/08/2016 Pituitary mass (HCC) [E23.6] 02/13/2020 Status post selective transsphenoidal pituitary*03/24/20 20 Hyponatremia [E87.1] 03/30/2020 04/02/2020 SIADH (syndrome of inappropriate ADH production* 020 Postoperative meningitis [G97.82, G03.8] 04/02/2020 Postoperative CSF leak [G97.82, G96.00] 04/05/2020 01/26/2022 Encounter for supervision of normal i*08/26/2021 Rubella non-immune status, antepartum [O09.899,*08/29/20 21 Encounter Status:Closed by CHARLENE ATKINS on 07/17/24 Normal [facility] Brain W/WO Contraston 2023 Brain W/WO Contrast [facility] Imaging Services [address] [place] [address] [id number] Brain W/WO Contrast MR#: [id number] Acct: [id number] Name: RODNEY NGUYEN Rep #: [id number] : 1995 F 28 From: Lisandro martinez MD PCP: Dr. Dinah Lovett MD Status: REG CLI Study: Brain W/WO Contrast Date of Exam: 03/26/24 Exam# [id number] Ordering Dr: ADELINA MARTIN [id number] STUDY: MRI BRAIN WITH AND WITHOUT CONTRAST (ATTENTION PITUITARY GLAND) REASON FOR EXAM: Female, 28 years old. PITUITARY MASS -- PITUITARY/SELLAR MASS, POST RESECTION, MONITOR TECHNIQUE: Standardized multiplanar fat and water weighted pulse sequences were obtained. 12CC was administered for the contrast portion of the examination. COMPARISON: MR the brain dated March 07, 2021. MRI the brain dated April 09, 2023 FINDINGS: Minimal scar tissue is present at the periphery of the pituitary gland from prior surgical intervention. Normal size of the pituitary gland for the patient?s age and gender. There is no demonstrated residual or recurrent pituitary adenoma. No cystic lesion is present. Normal enhancement of the pituitary gland, without a demonstrated intrapituitary lesion. Normal infundibular stalk and suprasellar cistern. Normal optic chiasm and hypothalamus. Normal size of the ventricles and extra-axial spaces for the patient''s age. Normal white matter tracts of the supratentorial brain. There is no evidence for recent intracranial ischemia or other cause of cytotoxic edema on diffusion weighted imaging (DWI). Normal T2* images of the brain without demonstrated susceptibility artifact. There is no demonstrated hemosiderin stain. There are no demyelinating plagues of the supratentorial brain, brainstem or cerebellum. There are no findings suspicious for multiple sclerosis (MS). Normal bilateral basal ganglia. Normal thalami. Normal flow voids within the major intracranial circulation suggesting patency by spin echo criteria. Normal venous enhancement. There is no enhancing intra-axial or extra-axial abnormality. There is no extra-axial fluid accumulation. Normal tectal plate and pineal gland. Normal midbrain, gabriela and medulla. Normal cerebellum. Normal basal cisterns. Normal bilateral temporal bones. Normal bilateral internal auditory canals. No demonstrated orbital abnormality, within the constraints of a routine brain study. Normal visualized paranasal sinuses. Normal calvarium and skull base. Normal visualized upper cervical spine. Normal visualized soft tissue structures. MRI/Brain W/WO Contrast IMPRESSION: 1. Unremarkable MRI of the pituitary gland. No pituitary lesion/recurrent adenoma is present. The study is unchanged since March 07, 2021. Electronically Signed: Lisandro Jorgensen MD at 11:54 EDT , CC: Dr. Dinah Lovett MD; ADELINA MARTIN [employer] Supervisor: Signed Normal [facility] 03-02-2024 [facility] Tele[facility] ([facility]) -------- RODNEY NGUYEN ([id number]) 1995 F Date Time Provider Department 03/02/24 BRITTNEY LEDESMA During your visit today, we recorded the following information about you: Stas Palmerlainey 03/02/2024 10:13 PM Signed 2 YEAR Stas Palmerlainey 03/10/2024 2:24 PM Signed Patient due for an MRI and follow up in March, please place order. Stas Paullainey 03/10/2024 2:38 PM Signed Scheduled. Abi Allergies As of Date: 03/02/2024 Noted Allergy Reaction AMOXICILLIN 01/14/2013 8 - GI Upset AUGMENTIN (AMOXICILLIN-POT CLAVUL*09/16/2008 2 - Rash Comments: Tolerated ceftriaxone diring 03/2020 admission Date Reviewed: 03/07/2023 Reviewed by: Bernice Wan MA - Fully Assessed Reason for Visit: DATABASE REQUEST [Other] Prescriptions as of 03/10/2024 - iv contrast (will be provided with radiology test) MRI Pituitary Inject, intravenously, once for 1 dose. No IV access, insert saline lock prior to the beginning of sedation, infusion, injection of imaging exam. Discontinue saline lock post exam. If Pt. has a central line or IVAD, may access for administration according to line specific nursing protocol. Once exam is complete flush line and de-access according to line specific nursing protocol in the MR contrast administration guidelines link. - Eqlhqdpv-Yb-Ebs-Fe -FA ( VITAMIN) tab Take 1 tablet by mouth once daily. Meds Comments as of 04/11/2020: 04/09/[address] Slade regarding potential severe interaction between Cipro and zofran/iron. pt will be taking iron in the middle of the day and has not been taking any zofran. 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] 04/05/2020 01/26/2022 Encounter for supervision of normal i*08/26/2021 Rubella non-immune status, antepartum [O09.899,*08/29/20 21 Encounter Status:Closed by MI PALMER on 03/10/24 Normal [facility] MRI PITUITARY WO/W IVCONon 0 04-09-2023 [facility] Basophil percentageon 2021 WBC (Bld) [#/Vol] 12.1 10*3/uL 4.4-11.0 [facility] Work Phone: Blood erythrocytes count (nu mber/volume)on 04-02-2022 RBC (Bld) [#/Vol] 3.54 10*6/uL 4.2-5.4 [facility] Work Phone: Blood hemoglobin measurement (mass/volume)on 04-02-2022 Hemoglobin (Bld) [Mass/Vol] 11.0 g/dL 12.0-15.0 [facility] Work Phone: Blood platelet mean volumeon 04-02-2022 Platelet mean volume (Bld) [Entitic vol] 9.5 fL 6.2-12.0 [facility] Work Phone: Determination of erythrocyte mean corpuscular volume (MCV)on 04-02-2022 MCV (RBC) [Entitic vol] 92.1 fL 81-99 [facility] Work Phone: Hematocrit Auto (Bld) [Volum e fraction]on 04-02-2022 Hematocrit (Bld) [Volume fraction] 32.6 % 37-47 [facility] Work Phone: Laboratory - Hematology and Cell countson 04-02-2022 Erythrocyte distribution width (RBC) [Entitic vol] 49.2 fL 35.1-43.9 [facility] Work Phone: Erythrocyte distribution width (RBC) [Ratio] 14.5 % 11.6-14.6 [facility] Work Phone: MCH (RBC) [Entitic mass] 31.1 pg 27.0-32.0 [facility] Work Phone: MCHC Auto (RBC) [Mass/Vol]on 04-02-2022 MCHC (RBC) [Mass/Vol] 33.7 g/dL 32-36 [facility] Work Phone: Platelets bldon 04-02-2022 Platelets (Bld) [#/Vol] 234 10*3/uL 150-450 [facility] Work Phone: Absolute lymphocyte counton 03-31-2022 Lymphocytes Auto (Unsp spec) [#/Vol] 1.70 10*3/uL 0.83-4.51 [facility] Work Phone: Basophil percentageon 2021 Basophils/100 WBC (Bld) 0.4 % 0-1 [facility] Work Phone: Eosinophils/100 WBC (Bld) 0.4 % 0-5 [facility] Work Phone: Neutrophils (Bld) [#/Vol] 6.0 10*3/uL 2.0-7.7 [facility] Work Phone: Neutrophils/100 WBC (Bld) 72.1 % 47-70 [facility] Work Phone: Blood lymphocytes/100 leukoc yteson 03-31-2022 Lymphocytes/100 WBC (Bld) 20.3 % 19-41 [facility] Work Phone: Blood monocytes/100 leukocyt eson 03-31-2022 Monocytes/100 WBC (Bld) 6.1 % 0-10 [facility] Work Phone: Laboratory - Hematology and Cell countson 03-31-2022 Immature granulocytes/100 WBC (Bld) 0.700 % 0.0-0.9 [facility] Work Phone: Comment on above: IG% - Immature Granu locytes (promyelocytes, myelocytes and metamyelocytes) > 1% indicates that a LEFT SHIFT is Present. Nucleated RBC/100 WBC (Bld) [Ratio] 0 % 0-5 [facility] Work Phone: OBSTETRIC ULTRASOUND WHIon 0 03-30-2022 [facility] URINE OB DIP B/Oon 2 Glucose Ql (U) Negative Neg mg/dL [facility] Protein.monoclonal (U) [Mass/Vol] Negative Neg mg/dL [facility] URINE OB DIP B/Oon 2 Glucose Ql (U) Negative Neg mg/dL [facility] Protein.monoclonal (U) [Mass/Vol] Negative Neg mg/dL [facility] URINE OB DIP B/Oon 2 Glucose Ql (U) Negative Neg mg/dL [facility] Protein.monoclonal (U) [Mass/Vol] Negative Neg mg/dL [facility] URINE OB DIP B/Oon 2 Glucose Ql (U) Negative Neg mg/dL [facility] Protein.monoclonal (U) [Mass/Vol] Negative Neg mg/dL [facility] Absolute lymphocyte counton 02-24-2022 Lymphocytes Auto (Unsp spec) [#/Vol] 0.32 10*3/uL 0.83-4.51 [facility] Work Phone: Basophil percentageon 2021 Basophil percentage 0-5 SEEN /hpf 0-5 [facility] Work Phone: Basophils/100 WBC (Bld) 0.2 % 0-1 [facility] Work Phone: Chloride [Moles/Vol] 109 mmol/L 98-107 [facility] Work Phone: Eosinophils/100 WBC (Bld) 0.0 % 0-5 [facility] Work Phone: Glucose [Mass/Vol] 97 mg/dL 74-106 [facility] Work Phone: Neutrophils (Bld) [#/Vol] 10.4 10*3/uL 2.0-7.7 [facility] Work Phone: Neutrophils/100 WBC (Bld) 94.5 % 47-70 [facility] Work Phone: Potassium [Moles/Vol] 3.9 mmol/L 3.5-5.1 [facility] Work Phone: Sodium [Moles/Vol] 140 mmol/L 136-145 [facility] Work Phone: WBC (Bld) [#/Vol] 11.0 10*3/uL 4.4-11.0 [facility] Work Phone: [phone] Bilirubin Test strip Ql (U)o n 02-24-2022 Bilirubin Ql (U) Negative Negative [facility] Work Phone: Blood erythrocytes count (nu mber/volume)on 02-24-2022 RBC (Bld) [#/Vol] 3.94 10*6/uL 4.2-5.4 [facility] Work Phone: Blood hemoglobin measurement (mass/volume)on 02-24-2022 Hemoglobin (Bld) [Mass/Vol] 12.0 g/dL 12.0-15.0 [facility] Work Phone: Blood lymphocytes/100 leukoc yteson 02-24-2022 Lymphocytes/100 WBC (Bld) 2.9 % 19-41 [facility] Work Phone: Blood manual differential co mment interpretation (narrative result)on 02-24-2022 Manual differential comment Carlito (Bld) [Interp] SCANNED [facility] Work Phone: Blood monocytes/100 leukocyt eson 02-24-2022 Monocytes/100 WBC (Bld) 1.8 % 0-10 [facility] Work Phone: Blood platelet mean volumeon 02-24-2022 Platelet mean volume (Bld) [Entitic vol] 9.6 fL 6.2-12.0 [facility] Work Phone: [phone] Determination of erythrocyte mean corpuscular volume (MCV)on 02-24-2022 MCV (RBC) [Entitic vol] 92.4 fL 81-99 [facility] Work Phone: [phone] Hematocrit Auto (Bld) [Volum e fraction]on 02-24-2022 Hematocrit (Bld) [Volume fraction] 36.4 % 37-47 [facility] Work Phone: [phone] Ketones Test strip Ql (U)on 02-24-2022 Ketones Ql (U) 150 mg/dl Negative [facility] Work Phone: [phone] Comment on above: RESULTS CALLED TO REED DAVE 02/24/22 Kalyn Bal.REPORT READ BACK BY SAME.CRITICAL VALUE *H Laboratory - Chemistry and C hemistry - challengeon 02-24-2022 CO2 [Moles/Vol] 23.0 mmol/L 21.0-32.0 [facility] Work Phone: [phone] Urea nitrogen/Creatinine [Mass ratio] 15.6 mg/mg 10-20 [facility] Work Phone: [phone] Laboratory - Hematology and Cell countson 02-24-2022 Erythrocyte distribution width (RBC) [Entitic vol] 50.9 fL 35.1-43.9 [facility] Work Phone: [phone] Erythrocyte distribution width (RBC) [Ratio] 15.1 % 11.6-14.6 [facility] Work Phone: [phone] Immature granulocytes/100 WBC (Bld) 0.600 % 0.0-0.9 [facility] Work Phone: [phone] Comment on above: IG% - Immature Granu locytes (promyelocytes, myelocytes and metamyelocytes) > 1% indicates that a LEFT SHIFT is Present. MCH (RBC) [Entitic mass] 30.5 pg 27.0-32.0 [facility] Work Phone: Nucleated RBC/100 WBC (Bld) [Ratio] 0 % 0-5 [facility] Work Phone: MCHC Auto (RBC) [Mass/Vol]on 02-24-2022 MCHC (RBC) [Mass/Vol] 33.0 g/dL 32-36 [facility] Work Phone: Mucus LM Ql (Urine sed)on Mucus Ql (Urine sed) 0 SEEN /hpf [facility] Work Phone: Nitrite Test strip Ql (U)on 02-24-2022 Nitrite Ql (U) Negative Negative [facility] Work Phone: No Panel Informationon 02-24 Estimated Creatinine Clearance Calc 101.63 ml/min [facility] Work Phone: Estimated GFR (MDRD) Amer 130 mL/min >60 [facility] Work Phone: Comment on above: GFR Calc Estimated GFR (MDRD) Non-Af Amer 107 mL/min >60 [facility] Work Phone: Comment on above: Non- GFR Calc Platelets bldon 02-24-2022 Platelets (Bld) [#/Vol] 223 10*3/uL 150-450 [facility] Work Phone: Protein Test strip Ql (U)on 02-24-2022 Protein Ql (U) 15 mg/dl Negative [facility] Work Phone: [phone] Serum or plasma calcium bassem urement (mass/volume)on 02-24-2022 Calcium [Mass/Vol] 8.7 mg/dL 8.5-10.1 [facility] Work Phone: [phone] Serum or plasma creatinine m easurement (mass/volume)on 02-24-2022 Creatinine [Mass/Vol] 0.70 mg/dL 0.55-1.02 [facility] Work Phone: Comment on above: The validity of the calculated GFR & GFRAA in patients over 70 years has not been determined. Clinical correlation is essential. Serum or plasma urea nitroge n measurement (mass/volume)on 02-24-2022 Urea nitrogen [Mass/Vol] 11 mg/dL 7-18 [facility] Work Phone: Squamous epithelial cells de tection in urine sediment by light microscopyon 02-24-2022 Epithelial cells.squamous LM Ql (Urine sed) 5-10 SEEN /hpf 5-10 [facility] Work Phone: Thin prep Papanicolaou smear with manual screeningon 02-24-2022 Thin prep Papanicolaou smear with manual screening 8 5-15 [facility] Work Phone: Urine blood detectionon 06-0 -2021 RBC Ql (U) Negative Negative [facility] Work Phone: RBC Ql (U) 0 SEEN /hpf 0-5 [facility] Work Phone: Urine clarityon 02-24-2022 Clarity (U) Sl. Cloudy Clear [facility] Work Phone: Urine color determinationon 02-24-2022 Color (U) Yellow Yellow [facility] Work Phone: Urine glucose detectionon Glucose Ql (U) Normal mg/dl Normal [facility] Work Phone: Urine leukocyte esterase det ection by dipstickon 02-24-2022 Leukocyte esterase Test strip Ql (U) Negative Negative [facility] Work Phone: Urine pHon 02-24-2022 pH (U) 7.0 [pH] 5.0 - 8.0 [facility] Work Phone: Urine sediment bacteria coun t by microscopy (number/high power field)on 02-24-2022 Bacteria LM.HPF (Urine sed) [#/Area] 0 /[HPF] None Seen [facility] Work Phone: Urine specific gravity measu rementon 02-24-2022 Specific gravity (U) [Rel density] 1.010 1.002-1.030 [facility] Work Phone: Urobilinogen Auto test strip Ql (U)on 02-24-2022 Urobilinogen Ql (U) 1 mg/dl Normal [facility] Work Phone: URINE OB DIP B/Oon 2 Glucose Ql (U) Negative Neg mg/dL [facility] Protein.monoclonal (U) [Mass/Vol] Negative Neg mg/dL [facility] CBC panel Auto (Bld)on 02-09 Erythrocyte distribution width (RBC) [Ratio] 14.9 % 11.5 - 15.0 % [facility] Hematocrit (Bld) [Volume fraction] 32.1 % Low 36.0 - 46.0 % [facility] Hemoglobin (Bld) [Mass/Vol] 10.6 g/dL Low 11.5 - 15.5 g/dL [facility] MCH (RBC) [Entitic mass] 30.3 pg 26.0 - 34.0 pg [facility] MCHC (RBC) [Mass/Vol] 33.0 g/dL 30.5 - 36.0 g/ dL [facility] MCV (RBC) [Entitic vol] 91.7 fL 80.0 - 100.0 fL [facility] Nucleated RBC (Bld) [#/Vol] 10*3/uL <0.01 k/uL [facility] Platelet mean volume (Bld) [Entitic vol] 8.6 fL Low 9.0 - 12.7 fL [facility] Platelets (Bld) [#/Vol] 230 10*3/uL 150 - 400 k /uL [facility] RBC (Bld) [#/Vol] 3.50 10*6/uL Low 3.90 - 5.20 m/uL [facility] WBC (Bld) [#/Vol] 9.49 10*3/uL 3.70 - 11. 00 k/uL [facility] URINE OB DIP B/Oon 2 Glucose Ql (U) Negative Neg mg/dL [facility] Protein.monoclonal (U) [Mass/Vol] trace Neg mg/dL [facility] URINE OB DIP B/Oon 2 Glucose Ql (U) Negative Neg mg/dL [facility] Protein.monoclonal (U) [Mass/Vol] Negative Neg mg/dL [facility] Vital Signs Date Time Vital Sign Value Performing Clinician Facility 02-27-2025 08:30-0400 Body height 160.[address] Dinah Lovett MD Work Phone: [phone] [place] [address] 02-27-2025 08:29-0400 Body mass index (BMI) [Ratio] 27.6 kg/m2 Dr. Dinah Lovett MD Work Phone: [phone] [place] [address] 02-27-2025 08:29-0400 Body weight 70.[address] Dinah Lovett MD Work Phone: [phone] [place] [address] 02-27-2025 08:29-0400 Diastolic blood pressure 85 mm[Hg] Dr. Dinah Lovett MD Work Phone: [phone] [place] [address] 02-27-2025 08:29-0400 Systolic blood pressure 133 mm[Hg] Dr. Dinah Lovett MD Work Phone: [phone] [place] [address] 02-18-2025 09:16-0400 Body height 160.[address] Dinah Lovett MD Work Phone: [phone] [place] [address] 02-18-2025 09:15-0400 Body mass index (BMI) [Ratio] 27.7 kg/m2 Dr. Dinah Lovett MD Work Phone: [phone] [place] [address] 02-18-2025 09:15-0400 Body weight 70.[address] Dinah Lovett MD Work Phone: [phone] [place] [address] 02-18-2025 09:15-0400 Diastolic blood pressure 85 mm[Hg] Dr. Dinah Lovett MD Work Phone: [phone] [place] [address] 02-18-2025 09:15-0400 Systolic blood pressure 132 mm[Hg] Dr. Dinah Lovett MD Work Phone: [phone] [place] [address] 02-09-2025 09:14-0400 Body height 160.[address] Dinah Lovett MD Work Phone: [phone] [place] [address] 02-09-2025 09:13-0400 Body mass index (BMI) [Ratio] 27.5 kg/m2 Dr. Dinah Lovett MD Work Phone: [phone] [place] [address] 02-09-2025 09:13-0400 Body weight 70.[address] Dinah Lovett MD Work Phone: [phone] [place] [address] 02-09-2025 09:13-0400 Diastolic blood pressure 75 mm[Hg] Dr. Dinah Lovett MD Work Phone: [phone] [place] [address] 02-09-2025 09:13-0400 Systolic blood pressure 122 mm[Hg] Dr. Dinah Lovett MD Work Phone: [phone] [place] [address] 01-26-2025 09:39-0400 Body mass index (BMI) [Ratio] 27.3 kg/m2 Dr. Dinah Lovett MD Work Phone: [phone] [address] [place], [place] [address] 01-26-2025 09:39-0400 Body weight 70.[address] Dinah Lovett MD Work Phone: 3(516)844-546765 [place] [address] 01-26-2025 09:39-0400 Diastolic blood pressure 81 mm[Hg] Dr. Dinah Lovett MD Work Phone: 7(156)110-980265 [place] [address] 01-26-2025 09:39-0400 Systolic blood pressure 124 mm[Hg] Dr. Dinah Lovett MD Work Phone: 1(946)453-524365 [place] [address] 01-21-2025 08:48-0400 Body mass index (BMI) [Ratio] 26.8 kg/m2 Dr. Dinah Lovett MD Work Phone: 5(419)841-622165 [place] [address] 01-21-2025 08:48-0400 Body weight 68.[address] Dinah Lovett MD Work Phone: 3(385)092-220965 [place] [address] 01-21-2025 08:48-0400 Diastolic blood pressure 75 mm[Hg] Dr. Dinah Lovett MD Work Phone: 9(943)383-812765 [place] [address] 01-21-2025 08:48-0400 Systolic blood pressure 133 mm[Hg] Dr. Dinah Lovett MD Work Phone: 6(441)344-864965 [place] [address] 01-08-2025 08:54-0400 Body mass index (BMI) [Ratio] 26.6 kg/m2 Dr. Dinah Lovett MD Work Phone: 2(634)768-759865 [place] [address] 01-08-2025 08:54-0400 Body weight 68.[address] Dinah Lovett MD Work Phone: 7(649)839-707765 [place] [address] 01-08-2025 08:54-0400 Diastolic blood pressure 82 mm[Hg] Dr. Dinah Lovett MD Work Phone: 0(725)489-280065 [place] [address] 01-08-2025 08:54-0400 Systolic blood pressure 123 mm[Hg] Dr. Dinah Lovett MD Work Phone: 6(538)282-648665 [place] [address] 12-24-2024 10:01-0400 Body mass index (BMI) [Ratio] 26 kg/m2 Dr. Dinah Lovett MD Work Phone: 0(720)742-586065 [place] [address] 12-24-2024 10:01-0400 Body weight 66.[address] Dinah Lovett MD Work Phone: 0(350)193-125065 [place] [address] 12-24-2024 10:01-0400 Diastolic blood pressure 72 mm[Hg] Dr. Dinah Lovett MD Work Phone: 2(006)317-524765 [place] [address] 12-24-2024 10:01-0400 Systolic blood pressure 114 mm[Hg] Dr. Dinah Lovett MD Work Phone: 0(431)803-059365 [place] [address] 11-25-2024 08:43-0500 Body height 160.[address] Dinah Lovett MD Work Phone: 9(182)889-810865 [place] [address] 11-25-2024 08:43-0500 Body mass index (BMI) [Ratio] 25.4 kg/m2 Dr. Dinah Lovett MD Work Phone: 2(320)780-266565 [place] [address] 11-25-2024 08:43-0500 Body weight 65.[address] Dinah Lovett MD Work Phone: 5(255)080-960665 [place] [address] 11-25-2024 08:43-0500 Diastolic blood pressure 86 mm[Hg] Dr. Dinah Lovett MD Work Phone: 6(490)017-389465 [place] [address] 11-25-2024 08:43-0500 Systolic blood pressure 126 mm[Hg] Dr. Dinah Lovett MD Work Phone: 0(280)736-257665 [place] [address] 10-29-2024 10:53-0500 Body mass index (BMI) [Ratio] 24 kg/m2 Dr. Dinah Lovett MD Work Phone: 4(684)759-603365 [place] [address] 10-29-2024 10:53-0500 Body weight 61.[address] Dinah Lovett MD Work Phone: 3(280)260-616565 [place] [address] 10-29-2024 10:53-0500 Diastolic blood pressure 77 mm[Hg] Dr. Dinah Lovett MD Work Phone: 0(507)223-181365 [place] [address] 10-29-2024 10:53-0500 Systolic blood pressure 122 mm[Hg] Dr. Dinah Lovett MD Work Phone: 0(497)151-783565 [place] [address] 09-29-2024 10:49-0500 Diastolic blood pressure 76 mm[Hg] Dr. Dinah Lovett MD Work Phone: 2(144)100-409165 [place] [address] 09-29-2024 10:49-0500 Systolic blood pressure 113 mm[Hg] Dr. Dianh Lovett MD Work Phone: 4(272)963-206365 [place] [address] 09-29-2024 10:45-0500 Body mass index (BMI) [Ratio] 23.6 kg/m2 Dr. Dinah Lovett MD Work Phone: 3(468)273-043165 [place] [address] 09-29-2024 10:45-0500 Body weight 60.[address] Dinah Lovett MD Work Phone: 6(297)622-202765 [place] [address] 08-26-2024 09:11-0500 Body mass index (BMI) [Ratio] 22.8 kg/m2 Dr. Dinah Lovett MD Work Phone: 0(830)864-787565 [place] [address] 08-26-2024 09:11-0500 Body weight 58.[address] Dinah Lovett MD Work Phone: 1(590)979-133365 [place] [address] 08-26-2024 09:11-0500 Diastolic blood pressure 88 mm[Hg] Dr. Dinah Lovett MD Work Phone: 3(673)920-498965 [place] [address] 08-26-2024 09:11-0500 Systolic blood pressure 134 mm[Hg] Dr. Dinah Lovett MD Work Phone: [facility] 07-28-2024 08:48-0500 Body height 160 cm Zulmafabrizio Saenz SHOE LACER.CNM Work Phone: [facility] 07-28-2024 08:48-0500 Body mass index (BMI) [Ratio] 22.32 kg/m2 Zulmafabrizio Saenz SHOE LACER.CNM Work Phone: [facility] 07-28-2024 08:48-0500 Body weight 57.15 kg Zulma Saenz SHOE LACER.CNM Work Phone: [facility] 07-28-2024 08:48-0500 Diastolic blood pressure 72 mm[Hg] Zulma Saenz SHOE LACER.CNM Work Phone: [facility] 07-28-2024 08:48-0500 Systolic blood pressure 126 mm[Hg] Zulma Saenz SHOE LACER.CNM Work Phone: [facility] 01-12-2023 19:05-0400 Body temperature 98.71 [degF] Chelly Praisler-Jamil SHOE LACER.[employer] GRAPH[employer] ARTIST Work Phone: [facility] 01-12-2023 19:05-0400 Body weight 57.24 kg Chelly Duqueler-Jamil SHOE LACER.M[employer] GRAPHICS ARTIST Work Phone: [facility] 01-12-2023 19:05-0400 Diastolic blood pressure 80 mm[Hg] Chelly Praisler-Wood SHOE LACER.MOTION GRAPHICS ARTIST Work Phone: [facility] 01-12-2023 19:05-0400 Heart rate 67 /min Chelly Pramaycoler-Jamil SHOE LACER.M[employer]ION GRAPHICS ARTIST Work Phone: [facility] 01-12-2023 19:05-0400 Respiratory rate 16 /min Chelly Praisler-Jamil SHOE LACER.M[employer]ION GRAPHICS ARTIST Work Phone: [facility] 01-12-2023 19:05-0400 SaO2% (BldA) [Mass fraction] 99 % Chelly Conn SHOE LACER.MOTION GRAPHICS ARTIST Work Phone: [facility] 01-12-2023 19:05-0400 Systolic blood pressure 118 mm[Hg] Chelly Conn APRN.[employer] GRAPH[employer] ARTIST Work Phone: [facility] 05-15-2022 08:59-0400 Body weight 58.51 kg Vickie Avila MD Work Phone: [facility] 05-15-2022 08:59-0400 Diastolic blood pressure 66 mm[Hg] Vickie Avila MD Work Phone: [facility] 05-15-2022 08:59-0400 Systolic blood pressure 110 mm[Hg] Vickie Avila MD Work Phone: [facility] 04-03-2022 07:57-0400 Body temperature 97.8 [degF] [facility] Work Phone: 04-03-2022 07:57-0400 Diastolic blood pressure 58 mm[Hg] [facility] Work Phone: 04-03-2022 07:57-0400 Heart rate 65 /min [facility] Work Phone: 04-03-2022 07:57-0400 Respiratory rate 18 /min [facility] Work Phone: 04-03-2022 07:57-0400 SaO2% (BldA) [Mass fraction] 98 % [facility] Work Phone: 04-03-2022 07:57-0400 Systolic blood pressure 126 mm[Hg] [facility] Work Phone: 03-31-2022 16:20-0400 Body height 160.02 cm [facility] Work Phone: 03-31-2022 16:20-0400 Body mass index (BMI) [Ratio] 26.8 kg/m2 [facility] Work Phone: 03-31-2022 16:20-0400 Body weight 68.6 kg [facility] Work Phone: 03-30-2022 14:02-0400 Body height 162.6 cm Geetha Frances MD Work Phone: [facility] 03-30-2022 14:02-0400 Body weight 68.95 kg Geetha Frances MD Work Phone: [facility] 03-30-2022 14:02-0400 Diastolic blood pressure 68 mm[Hg] Geetha Frances MD Work Phone: [facility] 03-30-2022 14:02-0400 Systolic blood pressure 122 mm[Hg] Geetha Frances MD Work Phone: [facility] 03-28-2022 14:44-0400 Body weight 68.67 kg Vickie Avila MD Work Phone: [facility] 03-28-2022 14:44-0400 Diastolic blood pressure 74 mm[Hg] Vickie Avila MD Work Phone: [facility] 03-28-2022 14:44-0400 Systolic blood pressure 110 mm[Hg] Vickie Avila MD Work Phone: [facility] 03-16-2022 09:35-0400 Body weight 68.67 kg Ebony Jama MD Work Phone: [facility] 03-16-2022 09:35-0400 Diastolic blood pressure 66 mm[Hg] Ebony Jama MD Work Phone: [facility] 03-16-2022 09:35-0400 Systolic blood pressure 108 mm[Hg] Ebony Jama MD Work Phone: [facility] 03-09-2022 10:47-0400 Body weight 67.59 kg Vickie Avila MD Work Phone: [facility] 03-09-2022 10:47-0400 Diastolic blood pressure 72 mm[Hg] Vickie Avila MD Work Phone: [facility] 03-09-2022 10:47-0400 Systolic blood pressure 126 mm[Hg] Vickie Avila MD Work Phone: [facility] 03-02-2022 09:21-0400 Body weight 66.68 kg Ebony Jama MD Work Phone: [facility] 03-02-2022 09:21-0400 Diastolic blood pressure 70 mm[Hg] Ebony Jama MD Work Phone: [facility] 03-02-2022 09:21-0400 Systolic blood pressure 114 mm[Hg] Ebony Jama MD Work Phone: [facility] 02-24-2022 12:29-0400 Heart rate 86 /min [facility] Work Phone: 02-24-2022 12:29-0400 SaO2% (BldA) [Mass fraction] 100 % [facility] Work Phone: 02-24-2022 10:37-0400 Body height 160.02 cm [facility] Work Phone: 02-24-2022 10:37-0400 Body mass index (BMI) [Ratio] 27.1 kg/m2 [facility] Work Phone: 02-24-2022 10:37-0400 Body temperature 99.6 [degF] [facility] Work Phone: 02-24-2022 10:37-0400 Body weight 69.39 kg [facility] Work Phone: 02-24-2022 10:37-0400 Diastolic blood pressure 72 mm[Hg] [facility] Work Phone: 02-24-2022 10:37-0400 Respiratory rate 16 /min [facility] Work Phone: 02-24-2022 10:37-0400 Systolic blood pressure 116 mm[Hg] [facility] Work Phone: 02-23-2022 10:47-0400 Body weight 69.4 kg Vickie Avila MD Work Phone: [facility] 02-23-2022 10:47-0400 Diastolic blood pressure 62 mm[Hg] Vickie Avila MD Work Phone: [facility] 02-23-2022 10:47-0400 Systolic blood pressure 112 mm[Hg] Vickie Avila MD Work Phone: [facility] 02-09-2022 10:09-0400 Body weight 67.13 kg Vickie Avila MD Work Phone: [facility] 02-09-2022 10:09-0400 Diastolic blood pressure 62 mm[Hg] Vickie Avila MD Work Phone: [facility] 02-09-2022 10:09-0400 Systolic blood pressure 100 mm[Hg] Vickie Avila MD Work Phone: [facility] 01-26-2022 08:55-0400 Body weight 66.22 kg Kristi Mcqueen MD Work Phone: [facility] 01-26-2022 08:55-0400 Diastolic blood pressure 68 mm[Hg] Kristi Mcqueen MD Work Phone: [facility] 01-26-2022 08:55-0400 Systolic blood pressure 118 mm[Hg] Kristi Mcqueen MD Work Phone: [facility] Encounters Encounter Date Encounter Type Care Provider Facility Start: 03-02-2025 ambulatory Bethany Saini cility:[facility] Start: 02-27-2025 End: 02-27-2025 Patient encounter procedure Edna Garcia [facility] Work Phone: Start: 02-27-2025 End: 02-27-[address] Dinah Lovett MD Work Phone: [facility] Work Phone: Start: 02-18-2025 End: 02-18-[address] Bethany Fry DO -[facility] Work Phone: Start: 02-18-2025 End: 02-18-[address] Dinah Lovett MD Work Phone: [facility] Work Phone: Start: 02-09-2025 End: 02-09-[address] Bethany Fry DO -Laboratory Specimen Work Phone: Start: 02-09-2025 End: 02-09-[address] Bethany Fry DO -[facility] Work Phone: Start: 02-09-2025 End: 02-09-[address] Dinah Lovett MD Work Phone: [facility] Work Phone: Start: 02-09-2025 End: 02-09-2025 ambulatory Bethany Fry Facility:[facility] Start: 02-03-2025 End: 02-03-2025 ambulatory Brittney Ledesma APRN.MOTION GRAPHICS ARTIST Work Phone: [facility] Comment on above: Scheduled Start: 01-26-2025 End: 01-26-[address] Bethany Fry DO -[facility] Work Phone: Start: 01-26-2025 End: 01-26-2025 ambulatory Bethany Fry Facility:[facility] Start: 01-26-2025 End: 01-26-2025 ambulatory MD CHATTERJ[facility] Start: 01-21-2025 End: 01-21-[address] Rema Fry MD -[facility] Work Phone: Start: 01-21-2025 End: 01-21-2025 ambulatory Dinah Lovett Facility:[facility] Start: 01-08-2025 End: 01-08-[address] Bethany Fry DO -[facility] Work Phone: Start: 01-08-2025 End: 01-08-2025 ambulatory Bethany Fry Facility:[facility] Start: 12-24-2024 End: 12-24-2024 Patient encounter procedure Karen Garcia [employer] [facility] DIRECTOR-C -[facility] Work Phone: Start: 12-24-2024 End: 12-24-2024 ambulatory Karen Garcia NP Facility:[facility] Start: 12-08-2024 End: 12-08-[address] Dinah Lovett MD Work Phone: [facility] Work Phone: Start: 12-08-2024 End: 12-08-[address] Bethany Fry DO [facility] Start: 12-08-2024 End: 12-08-2024 ambulatory Bethany Fry Facility:[facility] Start: 11-25-2024 End: 11-25-[address] Bethany Fry DO -[facility] Work Phone: Start: 11-25-2024 End: 11-25-2024 ambulatory Bethany Fry Facility:[facility] Start: 10-29-2024 End: 10-29-[address] Rema Fry MD -[facility] Work Phone: Start: 10-29-2024 End: 10-29-2024 ambulatory Dinah Lovett Facility:[facility] Start: 10-09-2024 End: 10-09-2024 ambulatory MILEY PEARSON [facility] Start: 09-29-2024 End: 09-29-2024 Patient encounter procedure Nhi Rose CNM -[facility] Work Phone: Start: 09-29-2024 End: 09-29-2024 ambulatory Dinah Lovett Facility:[facility] Start: 08-26-2024 End: 08-26-[address] Bethany Fry DO -Laboratory, Specimen Work Phone: Start: 08-26-2024 End: 08-26-[address] Bethany Fry DO -[facility] Work Phone: Start: 08-26-2024 End: 08-26-2024 ambulatory Bethany Fry Facility:[facility] Start: 08-26-2024 End: 08-26-2024 ambulatory Bethany Fry Facility:[facility] Start: 08-15-2024 End: 08-15-2024 ambulatory Bethany Fry Facility:[facility] Start: 07-30-2024 End: 07-30-2024 ambulatory Zulma Saenz APRN.CNM Work Phone: OB/Gynecology Comment on above: Urine culture Start: 07-29-2024 End: 07-29-2024 E-mail encounter from caregiver Mary Ann Gilliam [facility] Work Phone: [facility] Start: 07-29-2024 End: 07-29-2024 Patient encounter procedure Mary Ann Gilliam Ob L[facility] Work Phone: [place] Comment on above: [employer] Referral Start: 07-28-2024 ambulatory Dinah Lovett Facilit y:[facility] Start: 07-28-2024 End: 07-28-2024 ambulatory ZULMA SAENZ Facility:[facility] Start: 07-28-2024 End: 07-28-2024 Patient encounter procedure Zulma Saenz APRN.CNM Work Phone: OB/Gynecology Comment on above: with uncer tain dates, antepartum (Primary Dx); History of section; History of anxiety; Fear associated with healthcare; History of thyroid disorder; History of posttraumatic stress disorder (PTSD); 8 weeks gestation of Start: 07-23-2024 End: 07-23-2024 Telephone encounter Zulma Saenz APRN.[employer]is Work Phone: OB/Gynecology Comment on above: Appointment Start: 07-17-2024 End: 07-17-2024 Telephone encounter Charlene Avilestrent SHOE LACER.CNM Work Phone: OB/Gynecology Comment on above: Question (OB Questio n) (/) Start: 04-03-2024 End: 04-03-2024 ambulatory Brittney Ledesma SHOE LACER.MOTION GRAPHICS ARTIST Work Phone: [facility] [place] Comment on above: Pituitary mass (HCC) (Primary Dx) Start: 04-03-2024 End: 04-03-2024 Telemedicine consultation with patient Brittneymaurisio Petersenkaity SHOE LACER.MOTION GRAPHICS ARTIST Work Phone: [facility] Start: 03-26-2024 End: 03-26-2024 ambulatory Dinah Daniels Facility:[facility] Start: 03-02-2024 Telephone encounter Brittney ryan SHOE LACER.MOTION GRAPHICS ARTIST Work Phone: [facility] Comment on above: DATABASE REQUEST Start: 07-12-2023 ambulatory Vicike Avila MD Work Phone: OB/Gynecology Comment on above: UTI symptoms Start: 04-12-2023 Telephone encounter Vickie Avila MD Work Phone: OB/Gynecology Comment on above: Patient Update Start: 04-09-2023 End: 04-09-2023 Subsequent hospital visit by physician [employer] [facility] (I-Stat/1.5t) Work Phone: Radiology Comment on above: Pituitary adenoma (H CC) [D35.2] Start: 03-12-2023 Telephone encounter Vickie Avila MD Work Phone: OB/Gynecology Comment on above: Consult Start: 02-15-2023 Telephone encounter Vickie Avila MD Work Phone: OB/Gynecology Comment on above: Patient Question Start: 01-12-2023 End: 01-12-2023 Patient encounter procedure Chelly Conn SHOE LACER.MOTION GRAPHICS ARTIST Work Phone: [facility] Comment on above: Tick bite, unspecifi ed site, initial encounter (Primary Dx) Start: 12-18-2022 ambulatory Vickie Avila MD Work Phone: OB/Gynecology Comment on above: and me nstrual cycle Start: 07-18-2022 Orders Only Maria Teresa andrea MD Work Phone: Endocrinology Comment on above: Acquired hypothyroid ism (Primary Dx) Start: 05-15-2022 End: 05-15-2022 Patient encounter procedure Vickie Avila MD Work Phone: OB/Gynecology Comment on above: care and examination (Primary Dx) Start: 05-08-2022 Telephone encounter Maria Teresa Davila MD Work Phone: Endocrinology Comment on above: Appointment; Orders Start: 03-31-2022 End: 04-03-2022 Evaluation and management of inpatient [facility] Start: 03-30-2022 End: 03-30-2022 Patient encounter procedure Geetha Frances MD Work Phone: Maternal Medicine Comment on above: Post-term , 40-42 weeks of gestation (Primary Dx); 40 weeks gestation of Start: 03-29-2022 Telephone encounter Kristi Mcqueen MD Work Phone: OB/Gynecology Comment on above: Patient Question Start: 03-28-2022 End: 03-28-2022 Patient encounter procedure Vickie Avila MD Work Phone: OB/Gynecology Comment on above: Encounter for superv ision of normal first in third trimester (Primary Dx); 40 weeks gestation of Start: 03-23-2022 ambulatory Vickie Avila MD Work Phone: OB/Gynecology Comment on above: Induction Start: 03-21-2022 ambulatory Vickie Avila MD Work Phone: OB/Gynecology Comment on above: Start: 03-16-2022 End: 03-16-2022 Patient encounter procedure Ebony Jama MD Work Phone: OB/Gynecology Comment on above: Encounter for superv ision of normal first in third trimester (Primary Dx); 38 weeks gestation of Start: 03-09-2022 End: 03-09-2022 Patient encounter procedure Vickie Avila MD Work Phone: OB/Gynecology Comment on above: Encounter for superv ision of normal first in third trimester (Primary Dx); 37 weeks gestation of Start: 03-02-2022 End: 03-02-2022 Patient encounter procedure Ebony Jama MD Work Phone: OB/Gynecology Comment on above: Encounter for superv ision of normal first in third trimester (Primary Dx); 36 weeks gestation of Start: 03-01-2022 ambulatory Vickie Avila MD Work Phone: OB/Gynecology Comment on above: Start: 02-24-2022 End: 02-24-2022 Emergency department patient visit [facility] Start: 02-23-2022 End: 02-23-2022 Patient encounter procedure Vickie Avila MD Work Phone: OB/Gynecology Comment on above: Encounter for superv ision of normal first in third trimester (Primary Dx); 35 weeks gestation of Start: 02-09-2022 End: 02-09-2022 Patient encounter procedure Vickie Avila MD Work Phone: OB/Gynecology Comment on above: Anemia during pregna ncy in third trimester (Primary Dx); 33 weeks gestation of Start: 01-26-2022 End: 01-26-2022 Patient encounter procedure Kristi Mcqueen MD Work Phone: OB/Gynecology Comment on above: 31 weeks gestation o f (Primary Dx) Start: 01-16-2022 Orders Only Maria Teresa andrea MD Work Phone: Endocrinology Comment on above: Abnormal thyroid blo od test (Primary Dx) Start: 01-09-2022 ambulatory Vickie Avlia MD Work Phone: OB/Gynecology Comment on above: Blood Test Results Start: 01-02-2022 ambulatory Vickie Avila MD Work Phone: OB/Gynecology Comment on above: Upcoming Lab Start: 03-02-2011 End: 01-26-2022 Patient encounter status Vickie Avila MD Work Phone: [facility] Procedures Date Procedure Procedure Detail Performing Clinician Start: 02-09-2025 Beta-hemolytic Streptococcus culture Dr. Dinah Lovett MD Work Phone: Start: 12-08-2024 Serologic test for syphilis Dr. Dinah Lovett MD Work Phone: Start: 08-26-[address] Dinah Lovett MD Work Phone: Start: 07-28-2024 H/O: section History of section Zulma Saenz SHOE LACER.CNM Work Phone: Start: 07-28-2024 BACTERIAL VAGINOSIS NAAT Zulma Saenz SHOE LACER.CNM Work Phone: Start: 07-28-2024 Iadna chlamydia trachomatis amplified probe tq Zulma Saenz SHOE LACER.CNM Work Phone: Start: 07-28-2024 Us uterus limited 1/> fetuses Zulma Saenz SHOE LACER.CNM Work Phone: Start: 04-09-2023 Mri brain brain stem w/o w/contrast material Adelina Martin MD Work Phone: Start: 03-30-2022 Us preg uterus after 1st trimest 1 gestation Kristi Mcqueen MD Work Phone: Start: 03-28-2022 URINE OB DIP B/O Vickie Avila MD Work Phone: Start: 03-16-2022 URINE OB DIP B/O Ebony Jama MD Work Phone: Start: 03-09-2022 URINE OB DIP B/O Vickie Avila MD Work Phone: Start: 03-02-2022 URINE OB DIP B/O Ebony Jama MD Work Phone: Start: 02-23-2022 URINE OB DIP B/O Vickie Avila MD Work Phone: Start: 02-09-2022 URINE OB DIP B/O Vickie Avila MD Work Phone: Start: 01-26-2022 URINE OB DIP B/O Vickie Avila MD Work Phone: Start: 12-07-2020 Adult depression screening assessment Vickie Avila MD Work Phone: Start: 03-24-2020 H/O: surgery Status post selective transsphenoidal pituitary adenomectomy Vickie Avila MD Work Phone: Viral antigen assay Plan of Treatment Date Care Activity Detail Author Start: 2071 RSV Vaccine (1 - 1-d ose 75+ series) RSV Vaccine (1 - 1-dose 75+ series) [facility] Start: 01-10-2032 Urine microalbumin profile [facility] Start: 03-07-2026 PAP TESTING PAP TESTING [facility] Start: 03-07-2026 Screening for malign ant neoplasm of cervix Cervical Cancer Screening [facility] Start: 05-25-2025 Influenza vaccination Influenz a Vaccine (Season Ended) [facility] Start: 09-22-2024 End: 09-22-2024 Patient encounter procedure 09/22/2024 8:10 AM EST Routine Office Visit OB/Gynecology [address] [place] [id number] Vickie Galeano MD [address] [place] [id number] OB OB/Gynecology Comment on above: OB Start: 08-28-2024 End: 11-27-2024 Thyrotropin [Units/volume] in Serum or Plasma THYROID STIMULATING HORMONE Lab Routine History of thyroid disorder Expected: 08/28/2024 (Approximate), Expires: 11/27/2024 [facility] Comment on above: Expected: 08/28/2024 (Approximate), Expires: 11/27/2024 Start: 08-28-2024 End: 11-27-2024 Thyroxine (T4) free [Mass/volume] in Serum or Plasma T4 FREE/FREE THYROXINE Lab Routine History of thyroid disorder Expected: 08/28/2024, Expires: 11/27/2024 [facility] Comment on above: Expected: 08/28/2024 , Expires: 11/27/2024 Start: 08-25-2024 End: 08-25-2024 Patient encounter procedure 08/25/2024 9:30 AM EST Routine Office Visit OB/Gynecology [address] [place], [place] [id number] Zulma Saenz APRN.CN [address] [place] [address] est 1st OB OB/Gynecology Comment on above: est 1st OB Start: 07-28-2024 End: 10-27-2024 ANEMIA REFLEX PANEL ANEMIA REFLEX PANEL Lab Routine with uncertain dates, antepartum Expected: 07/28/2024, Expires: 10/27/2024 [facility] Work Phone: Comment on above: Expected: 07/28/2024 , Expires: 10/27/2024 Start: 07-28-2024 End: 10-27-2024 Hemoglobin A1c in Blood HEMOGLOBIN A1C Lab Routine with uncertain dates, antepartum Expected: 07/28/2024, Expires: 10/27/2024 [facility] Comment on above: Expected: 07/28/2024 , Expires: 10/27/2024 Start: 07-28-2024 End: 10-27-2024 Hepatitis B virus surface Ag [Presence] in Serum HEPATITIS B SURFACE ANTIGEN Lab Routine with uncertain dates, antepartum Expected: 07/28/2024, Expires: 10/27/2024 [facility] Comment on above: Expected: 07/28/2024 , Expires: 10/27/2024 Start: 07-28-2024 End: 10-27-2024 Hepatitis C virus Ab [Presence] in Serum HEPATITIS C ANTIBODY IA WITH CONFIRMATION Lab Routine with uncertain dates, antepartum Expected: 07/28/2024, Expires: 10/27/2024 [facility] Comment on above: Expected: 07/28/2024 , Expires: 10/27/2024 Start: 07-28-2024 End: 10-27-2024 HIV 1+2 Ab [Presence] in Serum or Plasma by Immunoassay HIV 1/2 COMBO WITH REFLEX TO DIFFERENTIATION Lab Routine with uncertain dates, antepartum Expected: 07/28/2024, Expires: 10/27/2024 [facility] Comment on above: Expected: 07/28/2024 , Expires: 10/27/2024 Start: 07-28-2024 End: 07-28-2025 NUCHAL TRANSLUCENCY WHI NUCHAL TRANSLUCENCY WHI Anc Imaging Routine with uncertain dates, antepartum Expected: 07/28/2024, Expires: 07/28/2025 [facility] Comment on above: Expected: 07/28/2024 , Expires: 07/28/2025 Start: 07-28-2024 End: 07-28-2025 OBSTETRIC ULTRASOUND WHI OBSTETRIC ULTRASOUND WHI Anc Imaging Routine with uncertain dates, antepartum Expected: 07/28/2024, Expires: 07/28/2025 [facility] Comment on above: Expected: 07/28/2024 , Expires: 07/28/2025 Start: 07-28-2024 End: 10-27-2024 RUBELLA IGG ANTIBODY RUBELLA IGG ANTIBODY Lab Routine with uncertain dates, antepartum Expected: 07/28/2024, Expires: 10/27/2024 [facility] Comment on above: Expected: 07/28/2024 , Expires: 10/27/2024 Start: 07-28-2024 End: 10-27-2024 SYPHILIS TREPONEMAL W/REFLEX SYPHILIS TREPONEMAL W/REFLEX Lab Routine with uncertain dates, antepartum Expected: 07/28/2024, Expires: 10/27/2024 [facility] Comment on above: Expected: 07/28/2024 , Expires: 10/27/2024 Start: 07-28-2024 End: 10-27-2024 TYPE + SCREEN TYPE + SCREEN Blood Bank Routine with uncertain dates, antepartum Expected: 07/28/2024, Expires: 10/27/2024 [facility] Comment on above: Expected: 07/28/2024 , Expires: 10/27/2024 Start: 07-28-2024 End: 07-28-2024 Patient encounter procedure OB/Gynecology Comment on above: NOB - LMP 05/30 Start: 05-25-2024 Covid-19 Vaccine ( season) Covid-19 Vaccine () [facility] Start: 05-25-2024 Influenza vaccination C [facility] Start: 05-15-2024 End: 05-15-2024 Follow-up encounter 05/15/2024 2:45 PM EDT [facility] [address] [place] [address] Brittney Ledesma, AMRIT.MOTION GRAPHICS ARTIST [address] [place] [address] [facility] Comment on above: 1 Year Follow Up Start: 09-24-2023 Behavioral Health Screening Behavioral Health Screening [facility] Start: 05-25-2023 Covid-19 Vaccine ( season) Covid-19 Vaccine () [facility] Start: 05-25-2023 Influenza vaccination C [facility] Start: 05-21-2023 PAP TESTING PAP TESTING [facility] Start: 02-26-2023 End: 04-28-2023 Corticotropin [Mass/volume] in Plasma ACTH BLD Lab Routine Pituitary adenoma (HCC) Expected: 02/26/2023, Expires: 04/28/2023 [facility] Work Phone: Comment on above: Expected: 02/26/2023 , Expires: 04/28/2023 Start: 02-26-2023 End: 04-28-2023 Cortisol [Mass/volume] in Serum or Plasma CORTISOL BLD Lab Routine Pituitary adenoma (HCC) Expected: 02/26/2023, Expires: 04/28/2023 [facility] Work Phone: Comment on above: Expected: 02/26/2023 , Expires: 04/28/2023 Start: 02-26-2023 End: 04-28-2023 Thyrotropin [Units/volume] in Serum or Plasma TSH BLD Lab Routine Pituitary adenoma (HCC) Hypothyroidism, unspecified type Expected: 02/26/2023, Expires: 04/28/2023 [facility] Work Phone: Comment on above: Expected: 02/26/2023 , Expires: 04/28/2023 Start: 02-26-2023 End: 04-28-2023 Thyroxine (T4) free [Mass/volume] in Serum or Plasma T4 FREE/FREE THYROX Lab Routine Pituitary adenoma (HCC) Hypothyroidism, unspecified type Expected: 02/26/2023, Expires: 04/28/2023 [facility] Work Phone: Comment on above: Expected: 02/26/2023 , Expires: 04/28/2023 Start: 09-24-2022 DEPRESSION ASSESSMENT [facility] Start: 07-18-2022 End: 09-17-2022 Thyrotropin [Units/volume] in Serum or Plasma TSH BLD Lab Routine Acquired hypothyroidism Expected: 07/18/2022, Expires: 09/17/2022 [facility] Work Phone: Comment on above: Expected: 07/18/2022 , Expires: 09/17/2022 Start: 07-18-2022 End: 09-17-2022 Thyroxine (T4) free [Mass/volume] in Serum or Plasma T4 FREE/FREE THYROX Lab Routine Acquired hypothyroidism Expected: 07/18/2022, Expires: 09/17/2022 [facility] Work Phone: Comment on above: Expected: 07/18/2022 , Expires: 09/17/2022 Start: 06-22-2022 End: 08-22-2022 Thyrotropin [Units/volume] in Serum or Plasma TSH BLD Lab Routine Pituitary mass (HCC) Excessive sweating Expected: 06/22/2022 (Approximate), Expires: 08/22/2022 [facility] Work Phone: Comment on above: Expected: 06/22/2022 (Approximate), Expires: 08/22/2022 Start: 05-25-2022 Influenza vaccination INFLUENZA (#1) [facility] Start: 05-11-2022 End: 07-11-2022 Comprehensive metabolic 2000 panel - Serum or Plasma COMP METABOLIC PANEL Lab Routine Pituitary mass (HCC) Expected: 05/11/2022, Expires: 07/11/2022 [facility] Work Phone: Comment on above: Expected: 05/11/2022 , Expires: 07/11/2022 Start: 05-11-2022 End: 07-11-2022 Hemoglobin A1c in Blood HGB A1C Lab Routine Pituitary mass (HCC) Expected: 05/11/2022, Expires: 07/11/2022 [facility] Work Phone: Comment on above: Expected: 05/11/2022 , Expires: 07/11/2022 Start: 05-11-2022 End: 07-11-2022 INSULIN LIK GR FAC I INSULIN LIK GR FAC I Lab Routine Pituitary mass (HCC) Expected: 05/11/2022, Expires: 07/11/2022 [facility] Work Phone: Comment on above: Expected: 05/11/2022 , Expires: 07/11/2022 Start: 05-11-2022 End: 07-11-2022 Phosphate [Mass/volume] in Serum or Plasma PHOSPHORUS INORGANIC Lab Routine Pituitary mass (HCC) Expected: 05/11/2022, Expires: 07/11/2022 [facility] Work Phone: Comment on above: Expected: 05/11/2022 , Expires: 07/11/2022 Start: 05-11-2022 End: 07-11-2022 Thyroxine (T4) free [Mass/volume] in Serum or Plasma T4 FREE/FREE THYROX Lab Routine Pituitary mass (HCC) Excessive sweating Expected: 05/11/2022, Expires: 07/11/2022 [facility] Work Phone: Comment on above: Expected: 05/11/2022 , Expires: 07/11/2022 Start: 04-09-2022 Urine microalbumin profile DTAP,TDAP,TD (7 - Td or Tdap) [facility] Start: 04-03-2022 Patient discharge [facility] Work Phone: Start: 04-02-2022 Application of abdom inal corset [facility] Work Phone: Start: 04-02-2022 Consultation [facility] Work Phone: Start: 04-01-2022 End: 04-02-2022 [facility] Work Phone: Start: 04-01-2022 Application of intermittent pneumatic compression device [facility] Work Phone: Start: 04-01-2022 Post-anesthesia assessment [facility] Work Phone: Start: 04-01-2022 Application of abdom inal corset [facility] Work Phone: Start: 04-01-2022 Administration of medication [facility] Work Phone: Start: 04-01-2022 Ambulation therapy management [facility] Work Phone: Start: 04-01-2022 Application of device [facility] Work Phone: Start: 04-01-2022 Assessment of risk o f venous thromboembolism [facility] Work Phone: Start: 04-01-2022 Catheterization of vein [facility] Work Phone: Start: 04-01-2022 Deep breathing and coughing exercises [facility] Work Phone: Start: 04-01-2022 Exercises [facility] Work Phone: Start: 04-01-2022 Incentive spirometry [facility] Work Phone: Start: 04-01-2022 Measuring intake and output [facility] Work Phone: Start: 04-01-2022 End: 04-01-2022 Notification of physician [facility] Work Phone: Start: 04-01-2022 Procedure discontinued [facility] Work Phone: Start: 04-01-2022 Provision of activit y privileges [facility] Work Phone: Start: 04-01-2022 Vital signs measurements [facility] Work Phone: Start: 04-01-2022 Wound care [facility] Work Phone: Start: 04-01-2022 [facility] Work Phone: Start: 03-31-2022 Admission procedure [facility] Work Phone: Start: 03-31-2022 Verification routine [facility] Work Phone: Start: 01-16-2022 End: 03-18-2022 T4 FREE/FREE THYROX [facility] Work Phone: Comment on above: Expected: 01/16/2022 , Expires: 03/18/2022 Start: 01-16-2022 End: 03-18-2022 Thyrotropin [Units/volume] in Serum or Plasma [facility] Work Phone: Comment on above: Expected: 01/16/2022 , Expires: 03/18/2022 Start: 12-07-2021 Adult depression screening assessment DEPRESSION SCREENING [facility] Start: 11-21-2021 COVID-19 VACCINE (3 - Booster for Pfizer series) COVID-19 VACCINE (3 - Booster for Pfizer series) [facility] Start: 09-24-2021 DEPRESSION ASSESSMENT DEPRESSION ASS ESSMENT [facility] Start: 08-18-2021 COVID-19 VACCINE (3 - Booster for Pfizer series) COVID-19 VACCINE (3 - Booster for Pfizer series) [facility] Start: 08-18-2021 COVID-19 VACCINE (3 - Pfizer series) COVID-19 VACCINE (3 - Pfizer series) [facility] Start: 2014 Anxiety Screening Anxiety Screening [facility] Start: 2014 Depression Screening Depression Scre ening [facility] Start: 2010 PEDS TO ADULT TRANSI TION ANNUAL ASSESSMENT PEDS TO ADULT TRANSITION ANNUAL ASSESSMENT [facility] Start: 2008 PEDS TO ADULT TRANSI TION INITIAL DISCUSSION PEDS TO ADULT TRANSITION INITIAL DISCUSSION [facility] OBSTETRIC ULTRASOUND WHI OBSTETR IC ULTRASOUND WHI Anc Imaging Routine Encounter for supervision of other normal in third trimester 40 weeks gestation of Ordered: 03/29/2022 [facility] Work Phone: Comment on above: Ordered: 03/29/2022 Patient Education [facility] Work Phone: Patient referral [facility] Work Phone: ROUTINE, GR OUP B STREP PCR ROUTINE, GROUP B STREP PCR Microbiology Routine Encounter for supervision of normal first in third trimester 36 weeks gestation of 03/02/2022 9:[address] [facility] Work Phone: Streptococcus agalac tiae [Presence] in Unspecified specimen by Organism specific culture [facility] Immunizations Immunization Date Immunization Notes Care Provider [facility] dash 12-24-2024 tetanus toxoid, redu tigre diphtheria toxoid, and acellular pertussis vaccine, adsorbed Dr. Dinah Lovett MD Work Phone: [facility] 08-12-2023 influenza virus vacc ine, unspecified formulation Brittney Ledesma SHOE LACER.M[employer] GRAPH[employer] ARTIST Work Phone: [facility] 08-16-2022 influenza virus vacc ine, unspecified formulation Vickie Avila MD Work Phone: [facility] 04-02-2022 measles, mumps and rubella virus vaccine [facility] 01-09-2022 tetanus toxoid, redu tigre diphtheria toxoid, and acellular pertussis vaccine, adsorbed Vickie Avila MD Work Phone: [facility] Work Phone: 08-26-2021 influenza, injectabl e, quadrivalent, contains preservative Vickie Avila MD Work Phone: [facility] 06-23-2021 COVID-19 vaccine, ag e 12+ yr (PFIZER-BIONTECH - PURPLE TOP) Vickie Avila MD Work Phone: [facility] Work Phone: 06-02-2021 COVID-19 vaccine, ag e 12+ yr (PFIZER-BIONTECH - PURPLE TOP) Vickie Avila MD Work Phone: [facility] Work Phone: 07-17-2018 Influenza, injectabl e, Madin Rhonda Canine Kidney, preservative free, quadrivalent Vickie Avila MD Work Phone: [facility] Work Phone: 08-17-2017 influenza, seasonal, injectable Vickie Avila MD Work Phone: [facility] 08-17-2017 influenza, seasonal, injectable, preservative free Vickie Avila MD Work Phone: [facility] Work Phone: 09-07-2016 influenza, injectabl e, quadrivalent, preservative free Vickie Avila MD Work Phone: [facility] Work Phone: 05-11-2015 influenza, seasonal, injectable, preservative free Vickie Avila MD Work Phone: [facility] Work Phone: 01-21-2015 meningococcal polysaccharide (groups A, C, Y and W-135) diphtheria toxoid conjugate vaccine (MCV4P) Vickie Avila MD Work Phone: [facility] 07-14-2014 influenza, seasonal, injectable Vickie Avila MD Work Phone: [facility] 08-09-2013 influenza virus vacc ine, unspecified formulation Vickie Avila MD Work Phone: [facility] 04-29-2013 human papilloma viru s vaccine, quadrivalent Vickie Avila MD Work Phone: [facility] 06-29-2012 influenza virus vacc ine, unspecified formulation Vickie Avila MD Work Phone: [facility] Work Phone: 04-09-2012 tetanus toxoid, redu tigre diphtheria toxoid, and acellular pertussis vaccine, adsorbed Vickie Avila MD Work Phone: [facility] 07-13-2011 influenza virus vacc ine, unspecified formulation Vickie Avila MD Work Phone: [facility] 03-02-2011 Meningococcal, MCV4, unspecified conjugate formulation(groups A, C, Y and W-135) Vickie Avila MD Work Phone: [facility] Work Phone: 03-02-2011 varicella virus vaccine Jenn Avila MD Work Phone: [facility] Work Phone: 07-21-2010 influenza virus vacc ine, unspecified formulation Vickie Avila MD Work Phone: [facility] 08-14-2008 influenza virus vacc ine, unspecified formulation Vickie Avila MD Work Phone: [facility] 07-30-2007 influenza virus vacc ine, unspecified formulation Vickie Avila MD Work Phone: [facility] Work Phone: 07-24-2006 influenza virus vacc ine, unspecified formulation Vickie Avila MD Work Phone: [facility] 08-12-2001 diphtheria, tetanus toxoids and acellular pertussis vaccine Vickie Avila MD Work Phone: [facility] 08-12-2001 measles, mumps and rubella virus vaccine Vickie Avila MD Work Phone: [facility] 08-12-2001 poliovirus vaccine, inactivated Vickie Avila MD Work Phone: [facility] Work Phone: 12-19-1999 varicella virus vaccine Jenn Avila MD Work Phone: [facility] 11-09-1997 DTaP-Haemophilus influenzae type b conjugate vaccine Vickie Avila MD Work Phone: [facility] 11-09-1997 poliovirus vaccine, inactivated Vickie Avila MD Work Phone: [facility] 11-05-1997 diphtheria, tetanus toxoids and acellular pertussis vaccine, unspecified formulation Vickie Avila MD Work Phone: [facility] Work Phone: 11-05-1997 hepatitis B vaccine, pediatric or pediatric/adolescent dosage Vickie Avila MD Work Phone: [facility] Work Phone: 08-06-1997 hepatitis B immune globulin Vickie Avila MD Work Phone: [facility] 08-06-1997 hepatitis B vaccine, pediatric or pediatric/adolescent dosage Vickie Avila MD Work Phone: [facility] Work Phone: 08-06-1997 measles, mumps and rubella virus vaccine Vickie Avila MD Work Phone: [facility] 01-30-1997 diphtheria, tetanus toxoids and acellular pertussis vaccine, unspecified formulation Vickie Avila MD Work Phone: [facility] Work Phone: 01-30-1997 DTaP-Haemophilus influenzae type b conjugate vaccine Vickie vAila MD Work Phone: [facility] 01-30-1997 hepatitis B vaccine, pediatric or pediatric/adolescent dosage Vickie Avila MD Work Phone: [facility] Work Phone: 01-30-1997 poliovirus vaccine, inactivated Vickie Avila MD Work Phone: [facility] 1996 diphtheria, tetanus toxoids and pertussis vaccine Vickie Avila MD Work Phone: [facility] Work Phone: 1996 DTaP-Haemophilus influenzae type b conjugate vaccine Vickie Avila MD Work Phone: [facility] 1996 hepatitis B vaccine, pediatric or pediatric/adolescent dosage Vickie Avila MD Work Phone: [facility] Work Phone: 1996 poliovirus vaccine, inactivated Vickie Avila MD Work Phone: [facility] 1996 diphtheria, tetanus toxoids and pertussis vaccine Vickie Avila MD Work Phone: [facility] Work Phone: 1996 DTaP-Haemophilus influenzae type b conjugate vaccine Vickie Avila MD Work Phone: [facility] 1996 hepatitis B vaccine, pediatric or pediatric/adolescent dosage Vickie Avila MD Work Phone: [facility] Work Phone: 1996 poliovirus vaccine, inactivated Vickie Avila MD Work Phone: [facility] 1996 hepatitis B immune globulin Vickie Avila MD Work Phone: [facility] 1996 hepatitis B immune globulin Vickie Avila MD Work Phone: [facility] 1996 hepatitis B vaccine, pediatric or pediatric/adolescent dosage Vickie Avila MD Work Phone: [facility] Work Phone: Payers Date Payer Category Payer Self-pay [id number] 2022 Private Health Insurance [id number] 2021 Unknown MMO MMO [employer]PA [id number] 2021-Present [address] [place] [address] PPO [id number] 2021 Unknown MMO MMO [employer] [id number] 2021-Present [address] [place] [address] PPO [id number] 2007 Private Health Insurance [facility] [employer] [id number] 2007-Present [phone] [address] [place] [address] HMO [id number] 2007 Private Health Insurance [id number] 1996 Unknown [id number]. [id number] 1996 Unknown [id number]. 479 Private Health Insurance [facility] [id number] Unknown [id number] Unknown [id number] Unknown [id number]. 462 Unknown [id number]. 462 Unknown [id number]. 462 Unknown [id number]. 462 Unknown [id number]. 462 Unknown [id number]. 462 Unknown [id number]. 462 Unknown [id number]. 462 Unknown [id number]. 462 Unknown [id number]. 462 Unknown [id number] 2.840.1.674451.3.579.2. 462 Unknown [id number]. 462 Unknown [id number]. 462 Unknown [id number] 2.840.1.412663.3.579.2. 462 Unknown [id number]. 462 Unknown [id number]. 462 Unknown [id number]. 462 Unknown [id number]. 462 Social History Date Type Detail Facility Start: 04-09-2012 End: 08-26-2024 Tobacco smoking status NHIS Never smoked tobacco [facility] Start: 09-22-2021 End: 03-07-2023 Alcohol intake Current non-drinker of alcohol (finding) [facility] Start: 05-18-2021 End: 09-22-2021 History SDOH Alcohol Frequency 2 [facility] Start: 05-18-2021 History SDOH Alcohol Std Drinks 1 [facility] Start: 05-18-2021 History SDOH Social Connections Phone 5 [facility] Start: 05-18-2021 History SDOH Social Connections Get Together 3 [facility] Start: 05-18-2021 Education 17 [facility] Start: 07-04-2021 [facility] Start: 1995 Sex Assigned At Female [facility] Start: 12-18-2021 End: 12-28-2021 Exposure to SARS-CoV-2 (event) Unable to assess [facility] Start: 12-30-2021 End: 03-30-2022 Exposure to SARS-CoV-2 (event) Not sure [facility] Work Phone: Start: 02-24-2022 End: 03-31-2022 Tobacco smoking status NHIS Unknown if ever smoked [facility] Work Phone: Start: 03-30-2020 Spouse/ Significant Other [facility] Start: 04-09-2012 End: 05-15-2022 Tobacco use and exposure Smokeless tobacco non-user [facility] Start: 05-18-2021 End: 03-07-2023 History of Social function [facility] Start: 05-18-2021 End: 03-07-2023 Social connection and isolation panel [facility] Do you belong to any clubs or organizations such as yarsani groups, unions, fraternal or athletic groups, or school groups? Yes [facility] Are you now , , , , never or living with a partner? [facility] How often to you hav e a drink containing alcohol? Monthly or less [facility] How many standard dr inks containing alcohol do you have on a typical day? 1 or 2 [facility] How often do you hav e 6 or more drinks on 1 occasion? Never [facility] How hard is it for y ou to pay for the very basics like food, housing, medical care, and heating Not hard at all [facility] Do you feel stress - tense, restless, nervous, or anxious, or unable to sleep at night because your mind is troubled all the time - these days [OSQ] Only a little [facility] (I/We) worried elbert er (my/our) food would run out before (I/we) got money to buy more. Never true [facility] In the past 12 month s, was there a time when you were not able to pay the mortgage or rent on time? No [facility] Start: 08-14-2021 Gender identity Identifies as female gender (finding) [facility] Start: 07-23-2024 End: 08-15-2024 Alcoholic beverage intake [facility] Start: 07-23-2024 Education 18 [facility] Start: 12-16-2024 Sex Female (finding) [facility] Medical Equipment Procedure Code Equipment Code Equipment Origin al Text Equipment Identifier Dates Graft Duragen Pl us Bovine Collagen Matrix 1x1in Soft Tissue Patch - [id number] Start: 04-05-2020 Goals Date Patient Goal Desired Activity /State Personal health goal Functional Status Date Assessment Result Facility 04-08-2020 Are you deaf, or do you have serious difficulty hearing No 04/08/2020 5:12 PM Christi Quintanilla RN No [facility] 04-08-2020 Are you blind, or do you have serious difficulty seeing, even when wearing glasses No 04/08/2020 5:12 PM Christi Quintanilla RN No [facility] 04-08-2020 Do you have serious difficulty walking or climbing stairs No 04/08/2020 5:12 PM EDT Christi Hill, MARCIA No [facility] 04-08-2020 Do you have difficul ty dressing or bathing No 04/08/2020 5:12 PM EDT Christi Hill, MARCIA No [facility] 04-08-2020 Because of a physica l, mental, or emotional condition, do you have difficulty doing errands alone such as visiting a physician's office or shopping No 04/08/2020 5:12 PM EDT Christi Hill, MARCIA No [facility] Mental Status Date Assessment Result Facility 04-02-2022 Cognitive function Voice/Name [facility] Work Phone: 04-08-2020 Because of a physica l, mental, or emotional condition, do you have serious difficulty concentrating, remembering, or making decisions No 04/08/2020 5:12 PM EDT Christi Hill RN No [facility] Clinical Notes 03-30-2020 to 02-27-2025 Note Date & Type Note Facility 02-27-2025 Progress note [facility] 02-09-2025 Progress note [facility] 11-25-2024 Evaluation note Diagnosis Onset Date Resolution Anxiety acute November 25 8:37am Delivery by section acute November 25, 2024 8:37am acute November 25 8:37am Supervision of high risk in first trimester acute November 25, 2024 8:37am Anemia in preg-unspec acute Apr 2024 9:58am Anxiety acute December 24 9:58am Delivery by section acute December 24, 2024 9:58am acute December 24 9:58am Supervision of high risk in first trimester acute December 24, 2024 9:58am Anemia in preg-unspec acute Apr 2024 8:44am Anxiety acute January 08 8:44am Delivery by section acute January 08, 2025 8:44am acute January 08 8:44am Supervision of high risk in first trimester acute January 08, 2025 8:44am Anemia in preg-unspec acute Apr 2024 8:45am Anxiety acute January 21 8:45am Delivery by section acute January 21, 2025 8:45am acute January 21 8:45am Supervision of high risk in first trimester acute January 21, 2025 8:45am Uterine size-date discrepancy, third trimester acute January 21, 2025 8:45am Anemia in preg-unspec acute January 26, 2025 9:27am Anxiety acute January 26, 2025 9:27am Delivery by section acute January 26, 2025 9: 27am acute January 26, 2025 9:27am Supervision of high risk in first trimester acute January 26, 2025 9: 27am Uterine size-date discrepancy, third trimester acute January 26, 2025 9: 27am Anemia in preg-unspec acute February 09, 2025 9:03am Anxiety acute February 09, 2025 9:03am Delivery by section acute February 09, 2025 9 :03am acute February 09, 2025 9:03am Supervision of high risk in first trimester acute February 09, 2025 9 :03am Uterine size-date discrepancy, third trimester acute February 09, 2025 9 :03am Anemia in preg-unspec acute February 18, 2025 9:03am Anxiety acute February 18, 2025 9:03am Delivery by section acute February 18, 2025 9 :03am acute February 18, 2025 9:03am Supervision of high risk in first trimester acute February 18, 2025 9 :03am Uterine size-date discrepancy, third trimester acute February 18, 2025 9 :03am Anemia in preg-unspec acute Feb 8:22am Anxiety acute February 27, 2025 8:22am Delivery by section acute February 27, 2025 8 :22am acute February 27, 2025 8:22am Supervision of high risk in first trimester acute February 27, 2025 8 :22am Uterine size-date discrepancy, third trimester acute February 27, 2025 8 :22am [facility] Work Phone: 1(377) 627-837402-05-2025 Evaluation note* Diagnosis Onset Date Resolution Status Admit Date Anxiety acute October 29, 2024 10:37am Delivery by section October 29, 2024 10:37am acute October 29, 2024 10:37am Supervision of high risk in first trimester acute Oct 10:37am Anxiety acute November 25 8:37am Delivery by section acute November 25, 2024 8:37am acute November 25 8:37am Supervision of high risk in first trimester acute Nov 8:37am Anemia in preg-unspec acute Apr 2024 9:58am Anxiety acute December 24 9:58am Delivery by section acute December 24, 2024 9:58am acute December 24 9:58am Supervision of high risk in first trimester acute Apr 2024 9:58am Anemia in preg-unspec acute Apr 2024 8:44am Anxiety acute January 08 8:44am Delivery by section acute January 08, 2025 8:44am acute January 08 8:44am Supervision of high risk in first trimester acute Apr 2024 8:44am Anemia in preg-unspec acute Apr 2024 8:45am Anxiety acute January 21 8:45am Delivery by section acute January 21, 2025 8:45am acute January 21 8:45am Supervision of high risk in first trimester acute Apr 2024 8:45am Uterine size-date discrepanc y, third trimester acute January 21, 2025 8:45am Anemia in preg-unspec acute January 26, 2025 9:27am Anxiety acute January 26, 2025 9:27am Delivery by section acute January 26, 2025 9:27am acute January 26, 2025 9:27am Supervision of high risk in first trimester acute January 26, 2025 9:27am Uterine size-date discrepanc y, third trimester acute January 26, 2025 9: 27am Anemia in preg-unspec acute February 09, 2025 9:03am Anxiety acute February 09, 2025 9:03am Delivery by section acute February 09, 2025 9:03am acute February 09, 2025 9:03am Supervision of high risk in first trimester acute February 09, 2025 9:03am Uterine size-date discrepanc y, third trimester acute February 09, 2025 9 :03am [facility] Work Phone: 1(467) 114-126802-05-2025 Evaluation note* Diagnosis Onset Date Resolution Status Admit Date Anxiety acute October 29, 2024 10:37am Delivery by section acute October 29, 2024 10:37am acute October 29, 2024 10:37am Supervision of high risk in first trimester acute Fe2024 10:37am Anxiety acute November 25 8:37am Delivery by section acute November 25, 2024 8:37am acute November 25 8:37am Supervision of high risk in first trimester acute Nov 8:37am Anemia in preg-unspec acute Apr 2024 9:58am Anxiety acute December 24 9:58am Delivery by section acute December 24, 2024 9:58am acute December 24 9:58am Supervision of high risk in first trimester acute Apr 2024 9:58am Anemia in preg-unspec acute Apr 2024 8:44am Anxiety acute January 08 8:44am Delivery by section acute January 08, 2025 8:44am acute January 08 8:44am Supervision of high risk in first trimester acute Apr 2024 8:44am Anemia in preg-unspec acute Apr 2024 8:45am Anxiety acute January 21 8:45am Delivery by section acute January 21, 2025 8:45am acute January 21 8:45am Supervision of high risk in first trimester acute Apr 2024 8:45am Uterine size-date discrepanc y, third trimester acute January 21, 2025 8:45am Anemia in preg-unspec acute January 26, 2025 9:27am Anxiety acute January 26, 2025 9:27am Delivery by section acute January 26, 2025 9:27am acute January 26, 2025 9:27am Supervision of high risk in first trimester acute January 26, 2025 9:27am Uterine size-date discrepanc y, third trimester acute January 26, 2025 9: 27am Anemia in preg-unspec acute February 09, 2025 9:03am Anxiety acute February 09, 2025 9:03am Delivery by section acute February 09, 2025 9:03am acute February 09, 2025 9:03am Supervision of high risk in first trimester acute February 09, 2025 9:03am Uterine size-date discrepanc y, third trimester acute February 09, 2025 9 :03am Anemia in preg-unspec acute February 18, 2025 9:03am Anxiety acute February 18, 2025 9:03am Delivery by section acute February 18, 2025 9:03am acute February 18, 2025 9:03am Supervision of high risk in first trimester acute February 18, 2025 9:03am Uterine size-date discrepanc y, third trimester acute February 18, 2025 9 :03am [facility] Work Phone: 1(636) 712-842412-03-2024 Evaluation note* Diagnosis Onset Date Resolution Status Admit Date Anxiety acute August 26, 2024 9:05am Delivery by section acute August 26, 2024 9:05am acute August 26, 2024 9:05am Supervision of high risk in first trimester acute Aug 9:05am H/O: pituitary tumor inactive Dece 2023 9:05am Anxiety acute September 29, 10:23am Delivery by section acute September 29, 2024 10:23am acute September 29 10:23am Supervision of high risk in first trimester acute Mehrdad uary 2024 10:23am H/O: pituitary tumor inactive Pepito 2024 10:23am Anxiety acute October 29, 2024 10:37am Delivery by section acute October 29, 2024 10:37am acute October 29, 2024 10:37am Supervision of high risk in first trimester acute Oct 10:37am Anxiety acute November 25 8:37am Delivery by section acute November 25, 2024 8:37am acute November 25 8:37am Supervision of high risk in first trimester acute Nov 8:37am [facility] Work Phone: 1(548) 447-541411-06-2024 Telephone encounter Note* Telephone Encounter - Chelsey Boland RN - 07/30/2024 10:36 AM EST Pt stopped in office asking about results. Advised her that message was sent to provider to review results. Chelsey Boland RN [facility]11-06-2024 Miscellaneous Notes* Telephone Encounter - Chelsey Boland RN - 07/30/2024 10:36 AM EST Pt stopped in office asking about results. Advised her that message was sent to provider to review results. Chelsey Boland RN * Telephone Encounter - Opal Baird RN - 07/30/2024 9:27 AM EST 8w5d Please review + urine culture result. Opal Baird RN documented in this encounter[facility] Telephone encounter Note * Telephone Encounter - Opal Baird RN - 07/30/2024 9:27 AM EST 8w5d Please review + urine culture result. Opal Baird RN [facility]11-04-2024 NoteHNO ID: [id number] Author: RODNEY FOWLER MA Service: ? Author Type: Donor Relations Coordinator Type: Progress Notes Filed: 08/01/2024 17:51 Note Text: OB point of care ultrasound was performed. See imaging tab for details. Rodney Fowler [facility]11-04-2024 History of Present illness Narrative* Rodney Fowler MA - 07/28/2024 8:40 AM EST OB point of care ultrasound was performed. See imaging tab for details. Rodney Fowler MA * Zulma Saenz APRN.YOSELYNM - 07/23/2024 2:28 PM EDT INITIAL OB ASSESSMENT HPI: Rodney is a 28 year old White Female here to establish Obstetrical Care. Patient's last menstrual period was 05/30/2024 (exact date). from OB Dating Form. was planned 05/30/24, sure LMP, 28-30 days. Stopped 04/16 Complaints: No OB History T1 L1 SAB0 IAB0 Ectopic0 Multiple0 Live Births1 Previous history: Prior : Yes History of 4th degree laceration: No History of shoulder dystocia: No History of Hypertensive disorders including pre-eclampsia or gestational hypertension: No History of gestational diabetes: No Patient's Risk Screening for delivery: Have you had a prior delgado between 20w and 36w6d? No How many pregnancies have you had before? 1 Did you have a previous baby with a GBS Infection? No Please select all that apply for any prior : N/A MEDICAL/PSYCHOSOCIAL HISTORY: Severe bleeding with delivery No History question Answer Diagnosis Date Comment Thyroid Disease No Thyroid disease 08/15/2021 Gestational Hypertension No Preeclampsia No Diabetes in No ABO/RH(D) Date Value Ref Range Status 08/26/2021 A POSITIVE Final BMI 22.32 kg/(m^2) Last Pap: 03/14/2023 History of abnormal pap: No Prior treatment for cervical dysplasia: none. Last HPV: History of STDs: N/A Partner History of STDs: None Did you have a partner with Herpes? No Tobacco use: No E-Cigarette/Vaping Use: No Caffeine use: Yes, one 8 oz cup of coffee daily Drug use: No Alcohol use: No Multivitamin with Folic acid: Yes Would refuse blood transfusion if medically necessary: No Social Needs: How often does this describe you? I don't have enough money to pay my bills: Never Within the past 12 months, have you worried that your food would run out before you had money to buy more? Never In the past 12 months, has lack of reliable transportation kept you from going to medical appointments or work, or from getting things needed for daily living? Never In the past 12 months, have you had any concerns about having a place to live, or about the condition or quality of your housing? Never Would you like more information on any of the following (please check all that apply)? Not interested Social History: Do you have any history of depression, anxiety, PTSD, or other mood problems? Yes Do you have a history of abuse or trauma that may impact your experience? No Are you currently employed? Yes Depression/Anxiety Screening: denies symptoms of depression. OB Depression and Anxiety Screening- This Encounter (since 07/27/2024) Over the past 2 weeks have you felt down, depressed, or hopeless? Negative Over the past two weeks, have you felt little interest or pleasure in doing things? Negative Feeling nervous, anxious or on edge 1-Several days Not being able to stop or control worrying 0-Not al all Anxiety Pre-Screening Total (If >/= 3 additional questions will be reviewed) 1 Genetic Screening: Partner present: Yes Patient verbalized knowledge of partner family health history: Yes Do you or your partner have any personal or family history of defects not previously discussed: Yes, previously noted down syndrome and nephew with kidney dysfunction. Testing was done and it was found not to be genetic but a rare situation. Do you have history of a complicated by anomaly, genetic condition, or demise: No Low Dose ASA Screening: Screening for low dose aspirin use for the prevention of pre-eclampsia: High risk factors: None Moderate risk ractors: None OB Risk Screening: Completed, no positive findings documented. 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 No current facility-administered medications for this visit. Allergies As of Date: 07/28/2024 Allergen Noted Reaction AMOXICILLIN 01/14/2013 GI Upset AUGMENTIN [AMOXICILLIN-POT CLAVUL*09/16/2008 Rash Fully Assessed 07/28/2024 Does patient have penicillin allergy: No REVIEW OF SYSTEMS: GENERAL: Negative for: Fever or Chills HEENT: Negative for: Headache, Impaired Vision, Ringing in Ears, Nosebleeds NECK: Negative for: Swelling, Pain, Stiffness RESPIRATORY: Negative for: Cough, Shortness of breath, Wheezing GASTROINTESTINAL: Negative for: Heartburn, Constipation, Diarrhea, Blood in stool, Vomiting MUSCULOSKELETAL: Negative for: Muscle or joint pain, stiffness, Joint swelling NEUROLOGIC/PSYCHIATRIC: Negative for: Weakness, Paralysis, Numbness, Tingling, Tremor, Anxiety, Depression, Memory loss SKIN: Negative for: Rash, Itching GENITOURINARY: Negative for: vaginal itching, vaginal discharge, hematuria or dysuria SENSITIVE EXAM: The sensitive examination was discussed with the Patient or Patient's Authorized Petroleum Engineer. As applicable, any other physician, advance practice provider, medical student, or other health professional student that will be observing or involved in the sensitive examination for educational or training purposes was discussed with the Patient or Authorized Petroleum Engineer. The Patient or Authorized Petroleum Engineer has agreed to proceed with the sensitive examination. (Sensitive examination includes inspection and/or palpation of the breasts, pelvis, prostate and anorectal regions). PHYSICAL EXAM: BP 126/72 Ht 5' 3 (1.60m) Wt 126 lb (57.2kg) LMP 05/30/2024 BMI 22.33 kg/(m^2). GENERAL: pleasant in no apparent distress DERMATOLOGY: Normal, without lesions, non-icteric, and non-hirsute NECK: Supple, full range of motion, no adenopathy, and thyroid normal CHEST: Clear to auscultation, Normal inspiratory effort, Regular rate and rhythm, and No murmurs, clicks, rubs or gallops BREAST: soft, non-tender, symmetric, no dominant mass, normal nipple-areolar complex, no lymphadenopathy, and no nipple discharge ABDOMEN: soft, non-tender, and no masses NEURO: alert and oriented x3,exam grossly non-focal PELVIS: External genitalia normal without lesions. Perineal body intact. No vaginal or cervical lesions. Cervix closed. Uterus 8 week size. No adnexal masses or tenderness. Clinical Pelvimetry: Pelvimetry clinically assessed as adequate Limited OB ultrasound exam: single intrauterine , positive cardiac activity, crown-rump length , and normal bilateral adnexa LMP 8w3d US 8w2d CIARA: 03/06/2025 by LMP ASSESSMENT: 28 year old at 8w3d wks gestational age PLAN: 1) Patient oriented to practice. Patient given new OB orientation folder. Discussed nutrition, folic acid supplementation, dietary guidelines, exercise, smoking, alcohol, caffeine, and drug use. OB Community care order placed. 2) Screening: Hemoglobin A1C: ordered Baby Aspirin: The patient has been counseled about the potential benefits of low dose aspirin in and our recommendation that this be offered to all patients, regardless of whether they meet the high risk criteria specified above. Aneuploidy Screening: Discussed aneuploidy screening, nuchal translucency/first trimester early anatomy ultrasound and NIPT. The risks/benefits and limitations of NIPT/aneuploidy screening were reviewed including the potential for false negative and false positive results. The availability of genetic counseling was reviewed. Information on aneuploidy screening was provided. The patient chooses toproceed with NIPT (10 weeks) Myriad Carrier Screening: Discussed myriad carrier screening. We discussed the availability of professional-society guided carrier screening and reviewed the conditions screened and limitations of screening. The availability of genetic counseling was reviewed. Information on carrier screening was provided. Will check insurance 3) Patient offered option of Virtual Visits. Patient prefers in person visits. 4) History of section: Pt counselled regarding TOLAC versus Repeat Section. Repeat C/S. Follow up in 4 weeks or sooner prkarla Saenz APRN.CNM documented in this encounterUniversity [facility]11-04-2024 Instructions* Patient Instructions* Zulma Saenz APRN.CNM - 07/28/2024 8:40 AM EST Please select the following link to access the [facility] Your Guide to a Healthy . [email or web address] Nausea and Vomitin) Vitamin B6 50 mg by mouth twice daily. Take this daily until approximately 14 weeks for prevention. 2) Unisom 1/2 tablet by mouth at bedtime. May increase to full tablet if needed. If no improvement in nausea may up to a full tablet every 8 hours as needed. Aspirin 81mg by mouth once daily after 12 weeks documented in this encounterUniversity [facility]als [facility]10-30-2024 Telephone encounter Note * Telephone Encounter - Sana Ortiz LPN - 07/23/2024 2:48 PM EDT Patient returned call. NOB questions completed. Sana Ortiz LPN [facility]10-30-2024 Miscellaneous Notes* Telephone Encounter - Sana Ortiz LPN - 07/23/2024 2:48 PM EDT Patient returned call. NOB questions completed. Sana Ortiz LPN * Telephone Encounter - Sana Ortiz LPN - 07/23/2024 2:13 PM EDT Called patient to review NOB questions. No answer- left message to call clinic. Sana Ortiz LPN documented in this encounterUniversity Hospitals [facility]10-30-2024 NoteHNO ID: [id number] Author: ZULMA SAENZ APRN.CNM Service: ? Author Type: Gang Ripsaw Operator Type: Progress Notes Filed: 08/01/2024 17:51 Note Text: INITIAL OB ASSESSMENT HPI: Rodney is a 28 year old White Female here to establish Obstetrical Care. Patient's last menstrual period was 05/30/2024 (exact date). from OB Dating Form. was planned 05/30/24, sure LMP, 28-30 days. Stopped 04/16 Complaints: No OB History T1 L1 SAB0 IAB0 Ectopic0 Multiple0 Live Births1 Previous history: Prior : Yes History of 4th degree laceration: No History of shoulder dystocia: No History of Hypertensive disorders including pre-eclampsia or gestational hypertension: No History of gestational diabetes: No Patient's Risk Screening for delivery: Have you had a prior delgado between 20w and 36w6d? No How many pregnancies have you had before? 1 Did you have a previous baby with a GBS Infection? No Please select all that apply for any prior : N/A MEDICAL/PSYCHOSOCIAL HISTORY: Severe bleeding with delivery No History question Answer Diagnosis Date Comment Thyroid Disease No Thyroid disease 08/15/2021 Gestational Hypertension No Preeclampsia No Diabetes in No ABO/RH(D) Date Value Ref Range Status 08/26/2021 A POSITIVE Final BMI 22.32 kg/(m2) Last Pap: 03/14/2023 History of abnormal pap: No Prior treatment for cervical dysplasia: none. Last HPV: History of STDs: N/A Partner History of STDs: None Did you have a partner with Herpes? No Tobacco use: No E-Cigarette/Vaping Use: No Caffeine use: Yes, one 8 oz cup of coffee daily Drug use: No Alcohol use: No Multivitamin with Folic acid: Yes Would refuse blood transfusion if medically necessary: No Social Needs: How often does this describe you? I don't have enough money to pay my bills: Never Within the past 12 months, have you worried that your food would run out before you had money to buy more? Never In the past 12 months, has lack of reliable transportation kept you from going to medical appointments or work, or from getting things needed for daily living? Never In the past 12 months, have you had any concerns about having a place to live, or about the condition or quality of your housing? Never Would you like more information on any of the following (please check all that apply)? Not interested Social History: Do you have any history of depression, anxiety, PTSD, or other mood problems? Yes Do you have a history of abuse or trauma that may impact your experience? No Are you currently employed? Yes Depression/Anxiety Screening: denies symptoms of depression. OB Depression and Anxiety Screening- This Encounter (since 07/27/2024) Over the past 2 weeks have you felt down, depressed, or hopeless? Negative Over the past two weeks, have you felt little interest or pleasure in doing things?? Negative Feeling nervous, anxious or on edge 1-Several days Not being able to stop or control worrying 0-Not al all Anxiety Pre-Screening Total (If >/= 3 additional questions will be reviewed) 1 Genetic Screening: Partner present: Yes Patient verbalized knowledge of partner family health history: Yes Do you or your partner have any personal or family history of defects not previously discussed: Yes, previously noted down syndrome and nephew with kidney dysfunction. Testing was done and it was found not to be genetic but a rare situation. Do you have history of a complicated by anomaly, genetic condition, or demise: No Low Dose ASA Screening: Screening for low dose aspirin use for the prevention of pre-eclampsia: High risk factors: None Moderate risk ractors: None OB Risk Screening: Completed, no positive findings documented. 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 No current facility-administered medications for this visit. Allergies As of Date: 07/28/2024 Allergen Noted Reaction AMOXICILLIN 01/14/2013 GI Upset AUGMENTIN [AMOXICILLIN-POT CLAVUL*09/16/2008 Rash Fully Assessed 07/28/2024 Does patient have penicillin allergy: No REVIEW OF SYSTEMS: GENERAL: Negative for: Fever or Chills HEENT: Negative for: Headache, Impaired Vision, Ringing in Ears, Nosebleeds NECK: Negative for: Swelling, Pain, Stiffness RESPIRATORY: Negative f (more content not included)...[facility] 07-23-2024 Telephone encounter Note* Telephone Encounter - Sana Ortiz LPN - 07/23/2024 2:13 PM EDT Called patient to review NOB questions. No answer- left message to call clinic. Sana Ortiz LPN [facility]10-24-2024 Telephone encounter Note* Telephone Encounter - Opal Baird RN - 07/17/2024 1:55 PM EDT Patient notified. Opal Baird RN [facility]-24-[facility] Miscellaneous Notes* Telephone Encounter - Opal Baird RN - 07/17/2024 1:55 PM EDT Patient notified. Opal Baird RN * Telephone Encounter - Charlene Atkins APRN.CNM - 07/17/2024 1:02 PM EDT Ingredients appear fine. Charlene Atkins APRN.CNM * Telephone Encounter - Opal Baird RN - 07/17/2024 8:45 AM EDT LMP 05/30/24 - 6w6d Patient calling to see if medicine ball tea drink from [email or web address] is safe with . Ingredients are listed as water, lemonade, honey, Valerie Sidman Mint Green Tea and Socorro Tranquility Herbal Tea.She initially read that it was fine with , but now has heard some mixed reviews regarding that. Opal Baird RN documented in this encounterUniversity [facility]10-[facility]-2024 Telephone encounter Note * Telephone Encounter - Charlene Atkins APRN.CNM - 07/17/2024 1:02 PM EDT Ingredients appear fine. Charlene Atkins APRN.CNM [facility] Work Phone: [phone]) 685-946010-24-2024 Telephone encounter Note* Telephone Encounter - Opal Baird RN - 07/17/2024 8:45 AM EDT LMP 05/30/24 - 6w6d Patient calling to see if medicine ball tea drink from [email or web address] is safe with . Ingredients are listed as water, lemonade, honey, Valerie Sidman Mint Green Tea and Socorro Tranquility Herbal Tea.She initially read that it was fine with , but now has heard some mixed reviews regarding that. Opal Baird RN [facility]07-11-2024 History of Present illness Narrative* Brittney Ledesma APRN.MOTION GRAPHICS ARTIST - 04/03/2024 8:45 AM EDT Images from the original note were not included. [facility] NEURO-ONCOLOGY VIRTUAL VISIT NOTE I have communicated my name and active licensure. The patient's identity and physical location wereverified at the time of this visit. Either the patient or their legal civil rights representative has been informed of the risks and benefits of -- and alternatives to -- treatment through a remote evaluation andconsents to proceed with the evaluation remotely. This is a virtual visit using [employer] Zoom Video Visit. It required patient- provider interaction for the medical decision making as documented below. 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 Pre and post op her pituitary labs were normal. Post surgeryher HVF testing reported significant improvement. INTERVAL HISTORY 04/03/24 She continues to be breast feed and her sleep pattern is off due her child not sleeping. SOCIAL HISTORY: Social History Tobacco Use Smoking status: Never Smokeless tobacco: Never Vaping Use Vaping Use: Never used Substance Use Topics Alcohol use: No Drug use: No PAST MEDICAL HISTORY Diagnosis Date Acne Pituitary adenoma (HCC) Postoperative CSF leak 04/05/2020 FAMILY HISTORY Problem Relation Age of Onset No Known Problems Mother Hypertension Father No Known Problems Sister No Known Problems Brother No Known Problems Maternal Grandmother Prostate Cancer Maternal Grandfather No Known Problems Paternal Grandmother Cancer Paternal Grandfather Lymphoma Current Outpatient Medications Medication Sig Istftxgp-Xd-Srn-Fe-FA ( VITAMIN) tab Take 1 tablet by mouth once daily. (Patient taking differently: Take 1 tablet by mouth once daily. ) No current facility-administered medications for this visit. REVIEW OF SYSTEMS: Neurological : No complaint of headache No complaint of tinnitus No complaint of decreased hearing No complaint of diplopia No complaints of blurred vision. No complaint of arm/leg numbness No problem with limb coordination No complaint of syncope No complaints of seizures. No complaints of memory changes or disorientation. General : Constitutional: No recent fever or weight loss. Eyes: No history of glaucoma or cataracts ENMT: No recent ear infection, nasal congestion, mouth sores or sore throat. CV: No history of chest pain, palpitations or leg swelling Respiratory: No history of SOB, wheezing or recent cough. Gastrointestinal: No history of nausea, vomiting, dysphagia or abdominal pain. Genitourinary: No history of hematuria or dysuria. Musculoskeletal: No complaint of arthritis, unstable gait or arm/leg weakness Psychiatric: No history of hallucinations, depression, or anxiety Objective PHYSICAL EXAMINATION: VIDEO EXAM: (if completed, performed via video enabled technology) NEUROLOGICAL EXAM: Higher integrative functions: Oriented to person, place & time. Memory: Good recent and remote. Attention Span and Concentration: Good. Language: Accurate naming of objects. Good comprehension. Fund of Knowledge: Good. IMAGING STUDIES: MRI Pituitary WO/W IVCON KPS and ECOG Provider Data Form MEDICAL DECISION MAKING Assessment & Plan 1. 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 - All questions were answered. I spent a total of 15 minutes on the date of the service which included completing clinical documentation, obtaining and/or reviewing separately obtained history, and performing a medically appropriate examination Brittney Ledesma APRN.CNP Certified Nurse Practitioner cc: Maria Teresa White and Adelina Martin MD--EPIC documented in this encounterUniversity Hospitals [facility]07-11-2024 NoteHNO ID: [id number] Author: BRITTNEY LEDESMA APRN.CNP Service: ? Author Type: Nurse Practitioner Type: Progress Notes Filed: 04/03/2024 08:59 Note Text: [facility] NEURO-ONCOLOGY VIRTUAL VISIT NOTE I have communicated my name and active licensure. The patient's identity and physical location were verified at the time of this visit. Either the patient or their legal civil rights representative has been informed of the risks and benefits of -- and alternatives to -- treatment through a remote evaluation and consents to proceed with the evaluation remotely. This is a virtual visit using [employer] Zoom Video Visit. It required patient-provider interaction for the medical decision making as documented below. 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 Pre and post op her pituitary labs were normal. Post surgery her HVF testing reported significant improvement. INTERVAL HISTORY 04/03/24 She continues to be breast feed and her sleep pattern is off due her child not sleeping. SOCIAL HISTORY: Social History Tobacco Use Smoking status: Never Smokeless tobacco: Never Vaping Use Vaping Use: Never used Substance Use Topics Alcohol use: No Drug use: No PAST MEDICAL HISTORY Diagnosis Date Acne Pituitary adenoma (HCC) Postoperative CSF leak 04/05/2020 FAMILY HISTORY Problem Relation Age of Onset No Known Problems Mother Hypertension Father No Known Problems Sister No Known Problems Brother No Known Problems Maternal Grandmother Prostate Cancer Maternal Grandfather No Known Problems Paternal Grandmother Cancer Paternal Grandfather Lymphoma Current Outpatient Medications Medication Sig Viwfbmqs-Ya-Gdn-Fe-FA ( VITAMIN) tab Take 1 tablet by mouth once daily. (Patient taking differently: Take 1 tablet by mouth once daily. ) No current facility-administered medications for this visit. REVIEW OF SYSTEMS: Neurological : No complaint of headache No complaint of tinnitus No complaint of decreased hearing No complaint of diplopia No complaints of blurred vision. No complaint of arm/leg numbness No problem with limb coordination No complaint of syncope No complaints of seizures. No complaints of memory changes or disorientation. General : Constitutional: No recent fever or weight loss. Eyes: No history of glaucoma or cataracts ENMT: No recent ear infection, nasal congestion, mouth sores or sore throat. CV: No history of chest pain, palpitations or leg swelling Respiratory: No history of SOB, wheezing or recent cough. Gastrointestinal: No history of nausea, vomiting, dysphagia or abdominal pain. Genitourinary: No history of hematuria or dysuria. Musculoskeletal: No complaint of arthritis, unstable gait or arm/leg weakness Psychiatric: No history of hallucinations, depression, or anxiety Objective PHYSICAL EXAMINATION: VIDEO EXAM: (if completed, performed via video enabled technology) NEUROLOGICAL EXAM: Higher integrative functions: Oriented to person, place AND time. Memory: Good recent and remote. Attention Span and Concentration: Good. Language: Accurate naming of objects. Good comprehension. Fund of Knowledge: Good. IMAGING STUDIES: MRI Pituitary WO/W IVCON KPS and ECOG Provider Data Form MEDICAL DECISION MAKING Assessment AND Plan 1. 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 - All questions were answered. I spent a total of 15 minutes on the date of the service which included completing clinical documentation, obtaining and/or reviewing separately obtained history, and performing a medically appropr (more content not included)...[facility]06-17-2024 Telephone encounter Note* Telephone Encounter - Mi Palmer - 03/10/2024 2:38 PM EDT Scheduled. Abi [facility]06-17-2024 Miscellaneous Notes* Telephone Encounter - Mi Palmer - 03/10/2024 2:38 PM EDT Scheduled. Abi * Telephone Encounter - Mi Palmer - 03/10/2024 2:24 PM EDT Patient due for an MRI and follow up in March, please place order. Abi * Telephone Encounter - Mi Palmer - 03/02/2024 10:12 PM EDT 1 YEAR documented in this encounterUniversity Hospitals [facility]06-17-2024 Telephone encounter Note * Telephone Encounter - Mi Palmer - 03/10/2024 2:24 PM EDT Patient due for an MRI and follow up in March, please place order. Abi [facility]06-09-2024 Telephone encounter Note* Telephone Encounter - Mi Palmer - 03/02/2024 10:12 PM EDT 1 YEAR [facility]07-20-2023 Miscellaneous Notes* Telephone Encounter - Sana Velazquez LPN - 04/12/2023 11:16 AM EDT Pt notified via [employer]. Sana Velazquez LPN * Telephone Encounter - Vickie Galeano MD - 04/12/2023 11:04 AM EDT [employer] just responded- she needs to schedule with her. She wants her to have two evening salivary cortisol levels done. I am going to defer this to her real estate agent/broker to order as I do not do this. Please have patient schedule with her. documented in this encounterUniversity Hospitals [facility]07-17-2023 Miscellaneous Notes* Telephone Encounter - Vickie Galeano MD - 04/09/2023 4:56 PM EDT They still never did- hopefully they will once her mri report is back, or at least reach out to her. Ok to close. * Telephone Encounter - Mary Ocampo RN - 04/09/2023 3:[address] Avila, I see patient had pituitary MRI today. Has [employer] reached out to you yet? Canwe close this encounter or is further outreach needed * Telephone Encounter - Vickie Galeano MD - 03/12/2023 4:29 PM EDT Please reach out to her [employer]- I sent Epic message last week. I ordered hormone panel forh/o pituitary adenoma as she was being seen here and needed her yearly labs and had a hard time getting ahold of office for lab orders to be placed- cortisol was slightly elevated. She has MRI comingup. Is there anything else she wants? Thank you. documented in this encounterUniversity Hospitals [facility] Center07-17-2023 History of Present illness Narrative* Rajwinder Gray RT(Juan) - 04/09/2023 2:20 PM EDT Radiology Service Progress Note DATE OF SERVICE: April 09, 2023 TIME: 2:22 PM PATIENT IDENTITY VERIFICATION COMPLETED USING TWO (2) STANDARD IDENTIFIERS: Name and Date of confirmed by patient verbally. FALL SCREENING: Has the patient had 2 falls in the last year or 1 fall with injury or currently using an Ambulatory Assistive Device (Walker, Cane, Wheelchair, Crutches, etc.)? No PATIENT GENDER DATA: Female. status: : No status: NO. PATIENT RELEVANT IMPLANT DATA REVIEWED: Yes ALLERGIES: Reviewed and unchanged CONTRAST ALLERGY: NO. EXAM: MRI - CONTRAST TYPE: GROUP II PERIPHERAL IV DATA: Ambulatory: A peripheral IV was started in the Left antecubital site with a Angio cath: 22 gauge. RADIOLOGY DEPARTMENT: MR; Exam(s) Completed: Head: Pituitary SIGNATURE: RT Pascual(Juan) PATIENT NAME: Rodney Nguyen DATE: April 09, 2023 TIME: 2:22 PM documented in this encounterUniversity Hospitals [facility]06-05-2023 Miscellaneous Notes* Telephone Encounter - Opal Baird RN - 02/26/2023 4:33 PM EDT Patient notified and order canceled. Opal Baird RN * Telephone Encounter - Vickie Avila MD - 02/26/2023 4:03 PM EDT No, please cancel prolactin level. * Telephone Encounter - Bethany Roth RN - 02/26/2023 1:37 PM EDT Yes, patient agreeable to this. She is . Should she have prolactin drawn at this time?Patient plans to unless DM states otherwise. Bethany Roth RN * Telephone Encounter - Vickie Avila MD - 02/26/2023 12:25 PM EDT Looks like they typically do a full panel for thyroid, prolactin, cortisol, acth, is she ok that I place all of these orders? * Telephone Encounter - Elana Nassar RN - 02/15/2023 11:00 AM EDT Patient notified and voiced understanding. Patient wanting to know if lab work can be ordered and have drawn prior to annual exam on 03/07. Patient states she usually just does normal hormone panel, but she would like to also keep her hormone levels. Patient aware provider is out of office now until02/26. Elana Nassar RN * Telephone Encounter - Vickie Avila MD - 02/15/2023 10:37 AM EDT Yes that is fine. * Telephone Encounter - Sana Velazquez LPN - 02/15/2023 8:57 AM EDT Pt stated that she is going to schedule her yearly exam and she was wanting to know if you would bewilling to place orders for to check hormone levels and other labs that her real estate agent/broker would order? Please advise.Sana Velazquez LPN documented in this encounterUniversity Hospitals [facility] Center04-21-2023 History of Present illness Narrative* Chelly Conn APRN.MOTION GRAPHICS ARTIST - 01/12/2023 7:19 PM EDT Images from the original note were not included. Subjective HPI Rodney Nguyen is a 27 year old female who presents with a tick bite on her right buttock. She hiked yesterday and was showering today and felt a bump on her skin and scratched it, then noticed something black on her finger and it was a tick nymph. She has a small red bump on her buttock. The area is not painful. She has not had a fever or rash. Review of Systems Constitutional: Negative for chills and fever. Respiratory: Negative. Cardiovascular: Negative. Musculoskeletal: Negative for myalgias. Skin: Negative for itching and rash. BP 118/80 Pulse 67 Temp 37.1 C (98.7 F) (Tympanic) Resp 16 Wt 57.2 kg (126 lb 3.2 oz) LMP06/20/2021 (Exact Date) SpO2 99% BMI 21.66 kg/m PAST MEDICAL HISTORY Diagnosis Date Acne Pituitary adenoma (HCC) Postoperative CSF leak 04/05/2020 PAST SURGICAL HISTORY Procedure Laterality Date BRAIN SURGERY HX 03/24/2020 DELIVERY ONLY 04/01/2022 LTCS NONE PICC LINE INSERT/CONSULT 03/30/2020 TOOTH EXTRACTION ALLERGIES Amoxicillin and Augmentin [Amoxicillin-Pot Clavulanate] MEDICATIONS Vqxoreni-Xr-Fcd-Fe-FA ( VITAMIN) tab Take 1 tablet by mouth once daily. doxycycline hyclate (VIBRAMYCIN) 100 mg capsule Take 2 capsules by mouth one time only for 1 dose. ferrous sulfate (SLOW FE) 140 mg (45 mg iron) TbER Take 140 mg by mouth twice daily with meals. (Patient not taking: Reported on 05/15/2022) FAMILY HISTORY Problem Relation Age of Onset No Known Problems Mother Hypertension Father No Known Problems Sister No Known Problems Brother No Known Problems Maternal Grandmother Prostate Cancer Maternal Grandfather No Known Problems Paternal Grandmother Cancer Paternal Grandfather Lymphoma Social History Tobacco Use Smoking status: Never Smokeless tobacco: Never Vaping Use Vaping Use: Never used Substance Use Topics Alcohol use: No Drug use: No Objective Physical Exam Vitals and nursing note reviewed. Constitutional: General: She is not in acute distress. Appearance: Normal appearance. She is not ill-appearing. Cardiovascular: Rate and Rhythm: Normal rate. Pulmonary: Effort: Pulmonary effort is normal. Skin: General: Skin is warm and dry. Capillary Refill: Capillary refill takes less than 2 seconds. Neurological: Mental Status: She is alert. ASSESSMENT/PLAN: 1. Tick bite, unspecified site, initial encounter - ICD9: 919.4, E906.4, ICD10: W57.XXXA - DOXYCYCLINE HYCLATE 100 MG CAPSULE - Follow-up with your PCP in 3-5 days if symptoms have not improved or sooner if symptoms worsen - Discussed red flags and need for immediate medical evaluation if any occur. - Discussed supportive care treatment with fluids, rest and analgesia. - Discussed expected course of illness Chelly Conn APRN.CNP documented in this encounterUniversity Hospitals Conneaut [facility] Center04-21-2023 Instructions* Patient Instructions* Chelly Conn APRN.CNP - 01/12/2023 7:18 PM EDT ASSESSMENT/PLAN: 1. Tick bite, unspecified site, initial encounter - ICD9: 919.4, E906.4, ICD10: W57.XXXA - DOXYCYCLINE HYCLATE 100 MG CAPSULE - Follow-up with your PCP in 3-5 days if symptoms have not improved or sooner if symptoms worsen - Discussed red flags and need for immediate medical evaluation if any occur. - Discussed supportive care treatment with fluids, rest and analgesia. - Discussed expected course of illness Chelly Conn APRN.MOTION GRAPHICS ARTIST Avoiding Tick Bites How can I avoid tick bites? If you are planning an outdoor activity, especially those in a heavily wooded area, it is importantto follow a few simple precautions to protect yourself from tick bites. Wear long sleeved, light-colored clothing, with tightly woven fabric. This gives ticks less area totarget and allows you to see ticks on your clothing. When traveling through the [place] or grassy nunes, stay near the center of the trails. At home, make sure that you keep your lawn mowed and bushes and trees trimmed as short as possible. If you choose to apply tick repellents, such as those containing DEET, try to avoid spraying them directly to your bare skin. (high concentrations of DEET may have harmful effects on the nervous system.) Apply the spray to your clothing, socks, shoes, tents and backpacks. When returning from the outdoors, check for ticks. Be especially observant of hair, body folds, ears, underarms and the back. Check your clothes and gear for ticks and wash these items immediately. What if I have been bitten by a tick? If you discover a tick, remove it immediately. The longer the tick feeds, the greater chance that it can transmit its bacteria to you. The easiest removal method is to use a pair of tweezers, grasp the tick as close to your skin as possible, and gently pull the tick off. Then, thoroughly wash your hands and the bite area with rubbing alcohol to prevent transmission to other areas of your body. When should I call the doctor? It is best to wait and see whether you develop any signs or symptoms. If a large red dinah forms around the tick bite or if you develop fever, flu-like symptoms, rash, or more severe illness, contact your doctor right away. Your doctor can determine whether these symptoms might be caused by a tick-borne disease, and whether antibiotics will be needed. Is there a vaccine for preventing tick-borne disease in humans? Currently there are vaccines being tested, but there are no guarantees that they will be effective.The best option is to take precautions so that tick bites do not occur in the first place. Early Signs and Symptoms (3 to 30 days after tick bite) Fever, chills, headache, fatigue, muscle and joint aches, and swollen lymph nodes Erythema migrans (EM) rash: Occurs in approximately 70 to 80 percent of infected persons Begins at the site of a tick bite after a delay of 3 to 30 days (average is about 7 days) Expands gradually over a period of days reaching up to 12 inches or more (30 cm) across May feel warm to the touch but is rarely itchy or painful Sometimes clears as it enlarges, resulting in a target or bull's-eye appearance May appear on any area of the body Later Signs and Symptoms (days to months after tick bite) Severe headaches and neck stiffness Additional EM rashes on other areas of the body Arthritis with severe joint pain and swelling, particularly the knees and other large joints. Facial or Lackey's palsy (loss of muscle tone or droop on one or both sides of the face) Intermittent pain in tendons, muscles, joints, and bones Heart palpitations or an irregular heart beat (Lyme carditis) Episodes of dizziness or shortness of breath Inflammation of the brain and spinal cord Nerve pain Shooting pains, numbness, or tingling in the hands or feet Problems with short-term memory documented in this encounterUniversity Hospitals [facility] Center03-27-2023 Miscellaneous Notes* Telephone Encounter - Vickie Avila MD - 12/18/2022 11:15 AM EDT Yes, this is normal while . documented in this encounterUniversity Hospitals Conneaut Medical Center08-22-2022 History of Present illness Narrative* Vickie Avila MD - 05/15/2022 8:57 AM EDT Finance Admin offered: Patient declines. VISIT Rodney Nguyen is a 26 year old year old here for visit. Delivery Summary: at 40 weeks and 5 days. ROS/ Recovery: Feeding: Breast feeding problems: None Menses since delivery: N/A. Menstrual pattern prior to : Regular periods [place] since delivery: Painful Depression: denies symptoms of depression. OB Depression and Anxiety Screening- This Encounter (since 05/14/2022) Over the past 2 weeks have you felt down, depressed, or hopeless? Negative Over the past two weeks, have you felt little interest or pleasure in doing things? Negative Feeling nervous, anxious or on edge 0-Not at all Not being able to stop or control worrying 0-Not al all Anxiety Pre-Screening Total (If >/= 3 additional questions will be reviewed) 0 Emotional support: Yes Bowel symptoms: No nausea, vomiting, or diarrhea, No heartburn or reflux symptoms, and Negative forabdominal discomfort, blood in stools or black stools Abdomen: She reports no incisional redness, tenderness, erythema Bladder symptoms: No dysuria, gross hematuria, urinary frequency, urinary urgency, or incontinence Other issues: None Last Pap: 2021 normal HPV: N/A PAST MEDICAL HISTORY Diagnosis Date Acne Pituitary adenoma (HCC) Postoperative CSF leak 04/05/2020 PAST SURGICAL HISTORY Procedure Laterality Date BRAIN SURGERY HX 03/24/2020 DELIVERY ONLY 04/01/2022 LTCS NONE PICC LINE INSERT/CONSULT 03/30/2020 TOOTH EXTRACTION FAMILY HISTORY Problem Relation Age of Onset No Known Problems Mother Hypertension Father No Known Problems Sister No Known Problems Brother No Known Problems Maternal Grandmother Prostate Cancer Maternal Grandfather No Known Problems Paternal Grandmother Cancer Paternal Grandfather Lymphoma Social History Tobacco Use Smoking status: Never Smokeless tobacco: Never Vaping Use Vaping Use: Never used Substance Use Topics Alcohol use: No Drug use: No PHYSICAL EXAMINATION: Wt 129 lb (58.5kg) LMP 06/20/2021 GENERAL: pleasant, female in no apparent distress HEENT: Normocephalic, atraumatic, mucus membranes moist, and no lesions NECK: Supple, full range of motion, no adenopathy, and thyroid normal DERMATOLOGY: Normal, without lesions, non-icteric, and non-hirsute BREAST: soft, non-tender, symmetric, no dominant mass, normal nipple-areolar complex, and no lymphadenopathy ABDOMEN: soft, non-tender, and no masses. INCISION: No incisional redness, swelling, or drainage PELVIC: external genitalia normal, normal Bartholin's glands, urethra, [place]'s glands, no vulvar lesions, no cervical lesions, good vaginal support, physiologic discharge present, normal appearing perineal body and perianal region BIMANUAL: uterus normal size, shape and consistency, no adnexal masses, and non-tender NEURO: alert and oriented x3,exam grossly non-focal EXTREMITIES: normal ASSESSMENT AND PLAN: 26 year old status post CS with normal course. Contraception plan: condoms Follow up: RTC for annual exams and PRN Vickie Pena MD documented in this encounterUniversity Hospitals Conneaut Medical Center08-18-2022 Miscellaneous Notes* Telephone Encounter - Robbie Mcqueen - 05/11/2022 8:48 AM EDT Patient called about getting labs ordered. She is 6 weeks post and was also trying to schedule with you but wasn't able to get an appointment soon. Please advise Robbie Mcqueen Panel [facility] * Telephone Encounter - Cornel Burdick - 05/09/2022 3:32 PM EDT Patient called and asked if this can be sent as high priority due to trying to have it done by the . * Telephone Encounter - Davy Craig MA - 05/08/2022 1:41 PM EDT Patient states she attempted to schedule a 6 week post follow-up with Roberto however was told that her schedule is full. Patient also states she was to have blood work however I do not see orders in Epic. Please advise. documented in this encounterUniversity Hospitals Conneaut [facility] Center07-06-2022 Miscellaneous Notes* Telephone Encounter - Opal Baird RN - 03/29/2022 3:47 PM EDT Patient notified. Scheduled u/s for tomorrow. Opal Baird RN * Telephone Encounter - Kristi Mcqueen MD - 03/29/2022 3:02 PM EDT US ordered but really we don't generally consider it necessary until 41 weeks unless we are concerned about growth or fluid. I understand she is anxious and am sorry but the unit acuity and census don't allow for an elective induction today or tomorrow. It is always disappointing when we have to delay patients because I know how much they want to meet their babies and prepare to come in. Kristi Mcqueen MD * Telephone Encounter - Opal Baird RN - 03/29/2022 12:22 PM EDT 40w2d Patient notified induction changed from tonight to 03/31/22 at 7pm. Patient is anxious waiting until Sunday now and questioning if she can have u/s done prior to then. States she discussed this with DMat her last visit that if induction pushed back she'd feel better having u/s done. Did advise u/s is usually only done if medically indicated. Please advise. Opal Baird RN documented in this encounterUniversity Hospitals Conneaut Medical Center07-05-2022 Miscellaneous Notes* Quick Notes - Vickie Avila MD - 03/28/2022 3:15 PM EDT DM- Pt doing well today. Denies Vaginal Bleeding, Leaking fluid, or contractions. Pt reports good movement. Pt would like elective IOL this week. Discussed she is closed- not able to place jones- would need cytotec. Pt understands this can be long process. IOL was scheduled for tonight but right after patient left it was canceled. Will try for tomorrow night. Kick counts reviewed. Vickie Pena MD documented in this encounterUniversity Hospitals Conneaut Medical Center07-05-2022 Instructions* Patient Instructions* Brenda Moore MA - 03/28/2022 2:39 PM EDT SEQUENTIAL SCREENINGS The [facility] offers sequential screenings for women who are interested in screenings for chromosomal abnormalities and certain defects during a . The sequential screen combinesultrasound and blood tests to determine the risk of chromosomal abnormalities, including Down's Syndrome (Trisomy 21) and Trisomy 18, as well as open neural tube defects including spina bifida. Ultrasound examination is performed between 11 weeks and 13 weeks gestational age. Blood tests are drawn after the ultrasound and again later in the between 15 and 21 weeks gestational age. Please let your physician know if you are interested in this testing. It will require an appointment withour food technician. This is not an ultrasound performed by a physician in our office during a routine visit. SIGNS AND SYMPTOMS OF LABOR 1. Contractions every 10 minutes or more often 2. Clear, pink, or brownish fluid (water) leaking from vagina 3. Feeling that baby is pushing down, pressure 4. Low, dull backache 5. Cramps that feel like a period 6. Cramps with or without diarrhea If you notice any of the above symptoms, contact our office at [phone] and ask to speak with anurse. After hours, you can call doctors registry at [phone] OR call [facility] at [phone] ask to have the doctor sales contracts analyst paged. If you consider this an emergency, dial 9-1-7 or go to your nearest emergency department. NEED HELP? Are you dealing with a violent or abusive relationship? Are you a victim of rape or sexual assult? Call [facility] [place] [facility] 24 hour Crisis Hotline: 320.908.1351 or 189-010-1847. MANUAL Your Guide to a Healthy manual is now on-line. Visit [email or web address] to download your free copy documented in this encounterUniversity Hospitals Conneaut Medical Center06-23-2022 Miscellaneous Notes* Quick Notes - bEony Jama MD - 03/16/2022 9:45 AM EDT KJ - No VB/LOF/ctxs. Reports good and a little pelvic pressure. A&P: Reviewed labor & FM precautions Ebony Jama MD documented in this encounterUniversity Hospitals Conneaut Medical Center06-23-2022 Instructions* Patient Instructions* Chayo Vega Ma - 03/16/2022 9:31 AM EDT SEQUENTIAL SCREENINGS The [facility] offers sequential screenings for women who are interested in screenings for chromosomal abnormalities and certain defects during a . The sequential screen combinesultrasound and blood tests to determine the risk of chromosomal abnormalities, including Down's Syndrome (Trisomy 21) and Trisomy 18, as well as open neural tube defects including spina bifida. Ultrasound examination is performed between 11 weeks and 13 weeks gestational age. Blood tests are drawn after the ultrasound and again later in the between 15 and 21 weeks gestational age. Please let your physician know if you are interested in this testing. It will require an appointment withour food technician. This is not an ultrasound performed by a physician in our office during a routine visit. SIGNS AND SYMPTOMS OF LABOR 1. Contractions every 10 minutes or more often 2. Clear, pink, or brownish fluid (water) leaking from vagina 3. Feeling that baby is pushing down, pressure 4. Low, dull backache 5. Cramps that feel like a period 6. Cramps with or without diarrhea If you notice any of the above symptoms, contact our office at [phone] and ask to speak with anurse. After hours, you can call doctors registry at [phone] OR call [facility] at [phone] ask to have the doctor sales contracts analyst paged. If you consider this an emergency, dial 05-25- or go to your nearest emergency department. NEED HELP? Are you dealing with a violent or abusive relationship? Are you a victim of rape or sexual assult? Call [facility] ([place]) 24 hour Crisis Hotline: 832.301.6861 or 219-375-2355. MANUAL Your Guide to a Healthy manual is now on-line. Visit [email or web address] to download your free copy documented in this encounterUniversity Hospitals Conneaut Medical Center06-16-2022 Miscellaneous Notes* Quick Notes - Vickie Avila MD - 03/09/2022 11:07 AM EDT DM- Pt doing well today. Denies Vaginal Bleeding, Leaking fluid, or contractions. Pt reports good movement. Feeling more anxious but managing well. Kick counts and labor reviewed. GBS negative.RTO one week. Vickie Avila MD documented in this encounterUniversity Hospitals Conneaut Medical Center06-16-2022 Instructions* Patient Instructions* Bernice Wan Ma - 03/09/2022 10:45 AM EDT SEQUENTIAL SCREENINGS The [facility] offers sequential screenings for women who are interested in screenings for chromosomal abnormalities and certain defects during a . The sequential screen combinesultrasound and blood tests to determine the risk of chromosomal abnormalities, including Down's Syndrome (Trisomy 21) and Trisomy 18, as well as open neural tube defects including spina bifida. Ultrasound examination is performed between 11 weeks and 13 weeks gestational age. Blood tests are drawn after the ultrasound and again later in the between 15 and 21 weeks gestational age. Please let your physician know if you are interested in this testing. It will require an appointment withour food technician. This is not an ultrasound performed by a physician in our office during a routine visit. SIGNS AND SYMPTOMS OF LABOR 1. Contractions every 10 minutes or more often 2. Clear, pink, or brownish fluid (water) leaking from vagina 3. Feeling that baby is pushing down, pressure 4. Low, dull backache 5. Cramps that feel like a period 6. Cramps with or without diarrhea If you notice any of the above symptoms, contact our office at [phone] and ask to speak with anurse. After hours, you can call doctors registry at [phone] OR call [facility] at [phone] ask to have the doctor sales contracts analyst paged. If you consider this an emergency, dial 9-- or go to your nearest emergency department. NEED HELP? Are you dealing with a violent or abusive relationship? Are you a victim of rape or sexual assult? Call [facility] ([place]) 24 hour Crisis Hotline: 588.989.2554 or 900-600-6455. MANUAL Your Guide to a Healthy manual is now on-line. Visit [email or web address] to download your free copy documented in this encounterUniversity Hospitals Conneaut Medical Center06-09-2022 Miscellaneous Notes* Quick Notes - Ebony Jama MD - 03/02/2022 9:29 AM EDT KJ - No VB/LOF/ctxs. Reports good FM. She has a vulvar lump that is now draining. TAUS: confirms vtx External genitalia: normal anatomic genitalia, right labia major with 1mm macule with tiny scant blood (like resolving draining cyst) A&P: GBS today Reviewed PTL & FM precautions Vulvar lump resolved Ebony Jama MD documented in this encounterUniversity Hospitals Conneaut Medical Center06-09-2022 Instructions* Patient Instructions* Chayo Vega Ma - 03/02/2022 9:15 AM EDT SEQUENTIAL SCREENINGS The [facility] offers sequential screenings for women who are interested in screenings for chromosomal abnormalities and certain defects during a . The sequential screen combinesultrasound and blood tests to determine the risk of chromosomal abnormalities, including Down's Syndrome (Trisomy 21) and Trisomy 18, as well as open neural tube defects including spina bifida. Ultrasound examination is performed between 11 weeks and 13 weeks gestational age. Blood tests are drawn after the ultrasound and again later in the between 15 and 21 weeks gestational age. Please let your physician know if you are interested in this testing. It will require an appointment withour food technician. This is not an ultrasound performed by a physician in our office during a routine visit. SIGNS AND SYMPTOMS OF LABOR 1. Contractions every 10 minutes or more often 2. Clear, pink, or brownish fluid (water) leaking from vagina 3. Feeling that baby is pushing down, pressure 4. Low, dull backache 5. Cramps that feel like a period 6. Cramps with or without diarrhea If you notice any of the above symptoms, contact our office at [phone] and ask to speak with anurse. After hours, you can call doctors registry at [phone] OR call [facility] at [phone] ask to have the doctor sales contracts analyst paged. If you consider this an emergency, dial 4-1-4 or go to your nearest emergency department. NEED HELP? Are you dealing with a violent or abusive relationship? Are you a victim of rape or sexual assult? Call [facility] ([place]) 24 hour Crisis Hotline: 231.572.8756 or 415-698-2318. MANUAL Your Guide to a Healthy manual is now on-line. Visit [email or web address] to download your free copy documented in this encounterUniversity Hospitals Conneaut Medical Center06-08-2022 Miscellaneous Notes* Telephone Encounter - Opal Baird RN - 03/01/2022 12:01 PM EDT Patient called in. States it is not red, swollen or painful. Requesting appointment tomorrow to have it looked at. Wants to kep 03/06/22 OB visit as scheduled to be with DM. Scheduled problem visit tomorrow with KJ. Opal Baird RN documented in this encounterUniversity Hospitals Conneaut Medical Center06-02-2022 Miscellaneous Notes* Quick Notes - Vickie Avila MD - 02/23/2022 10:57 AM EDT DM- Pt doing well today. Denies Vaginal Bleeding, Leaking fluid, or contractions. Pt reports good movement. Kick counts reviewed. RTO 1-2 weeks. Vickie Pena MD documented in this encounterUniversity Hospitals Conneaut Medical Center06-02-2022 Instructions* Patient Instructions* Bernice Wan Ma - 02/23/2022 10:46 AM EDT SEQUENTIAL SCREENINGS The [facility] offers sequential screenings for women who are interested in screenings for chromosomal abnormalities and certain defects during a . The sequential screen combinesultrasound and blood tests to determine the risk of chromosomal abnormalities, including Down's Syndrome (Trisomy 21) and Trisomy 18, as well as open neural tube defects including spina bifida. Ultrasound examination is performed between 11 weeks and 13 weeks gestational age. Blood tests are drawn after the ultrasound and again later in the between 15 and 21 weeks gestational age. Please let your physician know if you are interested in this testing. It will require an appointment withour food technician. This is not an ultrasound performed by a physician in our office during a routine visit. SIGNS AND SYMPTOMS OF LABOR 1. Contractions every 10 minutes or more often 2. Clear, pink, or brownish fluid (water) leaking from vagina 3. Feeling that baby is pushing down, pressure 4. Low, dull backache 5. Cramps that feel like a period 6. Cramps with or without diarrhea If you notice any of the above symptoms, contact our office at [phone] and ask to speak with anurse. After hours, you can call doctors registry at [phone] OR call [facility] at [phone] ask to have the doctor sales contracts analyst paged. If you consider this an emergency, dial 05-25-3 or go to your nearest emergency department. NEED HELP? Are you dealing with a violent or abusive relationship? Are you a victim of rape or sexual assult? Call [facility] ([place]) 24 hour Crisis Hotline: 406.166.1608 or 732-068-0857. MANUAL Your Guide to a Healthy manual is now on-line. Visit [email or web address] to download your free copy documented in this encounterUniversity Hospitals Conneaut Medical Center05-19-2022 Miscellaneous Notes* Quick Notes - Vickie Avila MD - 02/09/2022 10:27 AM EDT DM- Pt doing well today. Denies Vaginal Bleeding, Leaking fluid, or contractions. Pt reports good movement. Taking iron supplement. CBC today. RTO 2 wks. Kick counts reviewed. Vickie Pena MD documented in this encounterUniversity Hospitals Conneaut Medical Center05-19-2022 Instructions* Patient Instructions* Bernice Wan Ma - 02/09/2022 10:07 AM EDT SEQUENTIAL SCREENINGS The [facility] offers sequential screenings for women who are interested in screenings for chromosomal abnormalities and certain defects during a . The sequential screen combinesultrasound and blood tests to determine the risk of chromosomal abnormalities, including Down's Syndrome (Trisomy 21) and Trisomy 18, as well as open neural tube defects including spina bifida. Ultrasound examination is performed between 11 weeks and 13 weeks gestational age. Blood tests are drawn after the ultrasound and again later in the between 15 and 21 weeks gestational age. Please let your physician know if you are interested in this testing. It will require an appointment withour food technician. This is not an ultrasound performed by a physician in our office during a routine visit. SIGNS AND SYMPTOMS OF LABOR 1. Contractions every 10 minutes or more often 2. Clear, pink, or brownish fluid (water) leaking from vagina 3. Feeling that baby is pushing down, pressure 4. Low, dull backache 5. Cramps that feel like a period 6. Cramps with or without diarrhea If you notice any of the above symptoms, contact our office at [phone] and ask to speak with anurse. After hours, you can call doctors registry at [phone] OR call [facility] at [phone] ask to have the doctor sales contracts analyst paged. If you consider this an emergency, dial 9--4 or go to your nearest emergency department. NEED HELP? Are you dealing with a violent or abusive relationship? Are you a victim of rape or sexual assult? Call [facility] ([place]) 24 hour Crisis Hotline: 261.863.4111 or 396-090-6464. MANUAL Your Guide to a Healthy manual is now on-line. Visit [email or web address] to download your free copy documented in this encounterUniversity Hospitals Conneaut Medical Center05-05-2022 Miscellaneous Notes* Quick Notes - Kristi Mcqueen MD - 01/26/2022 9:12 AM EDT RR- Doing well overall. No VB/LOF. on Fe for anemia. taking PNV. F/u in 2 weeks or prn. Kristi Mcqueen MD documented in this encounterUniversity Hospitals Conneaut Medical Center05-05-2022 Instructions* Patient Instructions* Bernice Wan Ma - 01/26/2022 8:51 AM EDT SEQUENTIAL SCREENINGS The [facility] offers sequential screenings for women who are interested in screenings for chromosomal abnormalities and certain defects during a . The sequential screen combinesultrasound and blood tests to determine the risk of chromosomal abnormalities, including Down's Syndrome (Trisomy 21) and Trisomy 18, as well as open neural tube defects including spina bifida. Ultrasound examination is performed between 11 weeks and 13 weeks gestational age. Blood tests are drawn after the ultrasound and again later in the between 15 and 21 weeks gestational age. Please let your physician know if you are interested in this testing. It will require an appointment withour food technician. This is not an ultrasound performed by a physician in our office during a routine visit. SIGNS AND SYMPTOMS OF LABOR 1. Contractions every 10 minutes or more often 2. Clear, pink, or brownish fluid (water) leaking from vagina 3. Feeling that baby is pushing down, pressure 4. Low, dull backache 5. Cramps that feel like a period 6. Cramps with or without diarrhea If you notice any of the above symptoms, contact our office at [phone] and ask to speak with anurse. After hours, you can call doctors registry at [phone] OR call [facility] at [phone] ask to have the doctor sales contracts analyst paged. If you consider this an emergency, dial 9-1-5 or go to your nearest emergency department. NEED HELP? Are you dealing with a violent or abusive relationship? Are you a victim of rape or sexual assult? Call [facility] ([place]) 24 hour Crisis Hotline: 973.369.8975 or 571-018-0877. MANUAL Your Guide to a Healthy manual is now on-line. Visit [email or web address] to download your free copy documented in this encounterUniversity Hospitals Conneaut Medical Center04-18-2022 Miscellaneous Notes* Telephone Encounter - Bethany Roth RN - 01/09/2022 4:17 PM EDT 29w0d Please review CBC results. Thank you documented in this encounterUniversity Hospitals Conneaut Medical Center07-13-2020 History of Past illness Narrative* Problem Noted Date Resolved Date Postoperative CSF leak 04/05/2020 2 Last Assessment & Plan: Not present on admission No leak on ENT scope 04/02, rescope 04/04 for new clear rhinorrhea with clear liquid but no obvious leak source Treated with Endoscopic endonasal approach for repair of CSF leak Remove lumbar drain Hyponatremia 03/30/2020 04/02/2020 Last Assessment & Plan: See [facility] Well adolescent visit 03/02/2011 01/26/2022 Acne 03/02/2011 01/21/2015 documented as of this encounter (statuses as of 01/26/2022) [facility]07-13-2020 History of Past illness Narrative* Problem Noted Date Resolved Date Postoperative CSF leak 04/05/2020 2 Last Assessment & Plan: Not present on admission No leak on ENT scope 7/10, rescope 7/12 for new clear rhinorrhea with clear liquid but no obvious leak source Treated with Endoscopic endonasal approach for repair of CSF leak Remove lumbar drain Hyponatremia 03/30/2020 04/02/2020 Last Assessment & Plan: See [facility] adolescent visit 03/02/2011 01/26/2022 Acne 03/02/2011 01/21/2015 documented as of this encounter (statuses as of 02/09/2022) [facility]13[facility]2020 History of Past illness Narrative* Problem Noted Date Resolved Date Postoperative CSF leak 04/05/2020 2 Last Assessment & Plan: Not present on admission No leak on ENT scope 7/10, rescope 7/12 for new clear rhinorrhea with clear liquid but no obvious leak source Treated with Endoscopic endonasal approach for repair of CSF leak Remove lumbar drain Hyponatremia 03/30/2020 04/02/2020 Last Assessment & Plan: See [facility] adolescent visit 03/02/2011 01/26/2022 Acne 03/02/2011 01/21/2015 documented as of this encounter (statuses as of 02/23/2022) [facility]2020 History of Past illness Narrative* Problem Noted Date Resolved Date Postoperative CSF leak 04/05/2020 2 Last Assessment & Plan: Not present on admission No leak on ENT scope 7/10, rescope 7/12 for new clear rhinorrhea with clear liquid but no obvious leak source Treated with Endoscopic endonasal approach for repair of CSF leak Remove lumbar drain Hyponatremia 03/30/2020 04/02/2020 Last Assessment & Plan: See [facility] adolescent visit 03/02/2011 01/26/2022 Acne 03/02/2011 01/21/2015 documented as of this encounter (statuses as of 03/01/2022) [facility] History of Past illness Narrative* Problem Noted Date Resolved Date Postoperative CSF leak 04/05/2020 Last Assessment & Plan: Not present on admission No leak on ENT scope 7/10, rescope 7/12 for new clear rhinorrhea with clear liquid but no obvious leak source Treated with Endoscopic endonasal approach for repair of CSF leak Remove lumbar drain Hyponatremia 03/30/2020 04/02/2020 Last Assessment & Plan: See [facility] adolescent visit 03/02/2011 01/26/2022 Acne 03/02/2011 01/21/2015 documented as of this encounter (statuses as of 03/02/2022) [address]13-2020 History of Past illness Narrative* Problem Noted Date Resolved Date Postoperative CSF leak 04/05/2020 2 Last Assessment & Plan: Not present on admission No leak on ENT scope 7/10, rescope 7/12 for new clear rhinorrhea with clear liquid but no obvious leak source Treated with Endoscopic endonasal approach for repair of CSF leak Remove lumbar drain Hyponatremia 03/30/2020 04/02/2020 Last Assessment & Plan: See [facility] adolescent visit 03/02/2011 01/26/2022 Acne 03/02/2011 01/21/2015 documented as of this encounter (statuses as of 03/09/2022) [place] [id number] History of Past illness Narrative* Problem Noted Date Resolved Date Postoperative CSF leak 04/05/2020 2 Last Assessment & Plan: Not present on admission No leak on ENT scope 7/10, rescope 7/12 for new clear rhinorrhea with clear liquid but no obvious leak source Treated with Endoscopic endonasal approach for repair of CSF leak Remove lumbar drain Hyponatremia 03/30/2020 04/02/2020 Last Assessment & Plan: See [facility] adolescent visit 03/02/2011 01/26/2022 Acne 03/02/2011 01/21/2015 documented as of this encounter (statuses as of 03/16/2022) [facility] History of Past illness Narrative* Problem Noted Date Resolved Date Postoperative CSF leak 04/05/2020 2 Last Assessment & Plan: Not present on admission No leak on ENT scope 7/10, rescope 7/12 for new clear rhinorrhea with clear liquid but no obvious leak source Treated with Endoscopic endonasal approach for repair of CSF leak Remove lumbar drain Hyponatremia 03/30/2020 04/02/2020 Last Assessment & Plan: See [facility] adolescent visit 03/02/2011 01/26/2022 Acne 03/02/2011 01/21/2015 documented as of this encounter (statuses as of 03/21/2022) [place] [id number] History of Past illness Narrative* Problem Noted Date Resolved Date Postoperative CSF leak 04/05/2020 2 Last Assessment & Plan: Not present on admission No leak on ENT scope 7/10, rescope 7/12 for new clear rhinorrhea with clear liquid but no obvious leak source Treated with Endoscopic endonasal approach for repair of CSF leak Remove lumbar drain Hyponatremia 03/30/2020 04/02/2020 Last Assessment & Plan: See [facility] adolescent visit 03/02/2011 01/26/2022 Acne 03/02/2011 01/21/2015 documented as of this encounter (statuses as of 03/23/2022) [place] [id number] History of Past illness Narrative* Problem Noted Date Resolved Date Postoperative CSF leak 04/05/2020 2 Last Assessment & Plan: Not present on admission No leak on ENT scope 7/10, rescope 7/12 for new clear rhinorrhea with clear liquid but no obvious leak source Treated with Endoscopic endonasal approach for repair of CSF leak Remove lumbar drain Hyponatremia 03/30/2020 04/02/2020 Last Assessment & Plan: See [facility] adolescent visit 03/02/2011 01/26/2022 Acne 03/02/2011 01/21/2015 documented as of this encounter (statuses as of 03/28/2022) [facility] History of Past illness Narrative* Problem Noted Date Resolved Date Postoperative CSF leak 04/05/2020 2 Last Assessment & Plan: Not present on admission No leak on ENT scope 7/10, rescope 7/12 for new clear rhinorrhea with clear liquid but no obvious leak source Treated with Endoscopic endonasal approach for repair of CSF leak Remove lumbar drain Hyponatremia 03/30/2020 04/02/2020 Last Assessment & Plan: See [facility] adolescent visit 03/02/2011 01/26/2022 Acne 03/02/2011 01/21/2015 documented as of this encounter (statuses as of 03/29/2022) [place] [id number] History of Past illness Narrative* Problem Noted Date Resolved Date Postoperative CSF leak 04/05/2020 2 Last Assessment & Plan: Not present on admission No leak on ENT scope 7/10, rescope 7/12 for new clear rhinorrhea with clear liquid but no obvious leak source Treated with Endoscopic endonasal approach for repair of CSF leak Remove lumbar drain Hyponatremia 03/30/2020 04/02/2020 Last Assessment & Plan: See [facility] adolescent visit 03/02/2011 01/26/2022 Acne 03/02/2011 01/21/2015 documented as of this encounter (statuses as of 03/30/2022) [facility] History of Past illness Narrative* Problem Noted Date Resolved Date Postoperative CSF leak 04/05/2020 2 Last Assessment & Plan: Not present on admission No leak on ENT scope 7/10, rescope 7/12 for new clear rhinorrhea with clear liquid but no obvious leak source Treated with Endoscopic endonasal approach for repair of CSF leak Remove lumbar drain Hyponatremia 03/30/2020 04/02/2020 Last Assessment & Plan: See [facility] adolescent visit 03/02/2011 01/26/2022 Acne 03/02/2011 01/21/2015 documented as of this encounter (statuses as of 05/11/2022) [place] [id number] History of Past illness Narrative* Problem Noted Date Resolved Date Postoperative CSF leak 04/05/2020 2 Last Assessment & Plan: Not present on admission No leak on ENT scope 7/10, rescope 7/12 for new clear rhinorrhea with clear liquid but no obvious leak source Treated with Endoscopic endonasal approach for repair of CSF leak Remove lumbar drain Hyponatremia 03/30/2020 04/02/2020 Last Assessment & Plan: See [facility] adolescent visit 03/02/2011 01/26/2022 Acne 03/02/2011 01/21/2015 documented as of this encounter (statuses as of 05/15/2022) [address]13-2020 History of Past illness Narrative* Problem Noted Date Resolved Date Postoperative CSF leak 04/05/2020 2 Last Assessment & Plan: Not present on admission No leak on ENT scope 7/10, rescope 7/12 for new clear rhinorrhea with clear liquid but no obvious leak source Treated with Endoscopic endonasal approach for repair of CSF leak Remove lumbar drain Hyponatremia 03/30/2020 04/02/2020 Last Assessment & Plan: See [facility] adolescent visit 03/02/2011 01/26/2022 Acne 03/02/2011 01/21/2015 documented as of this encounter (statuses as of 07/18/2022) [facility] History of Past illness Narrative* Problem Noted Date Resolved Date Postoperative CSF leak 04/05/2020 2 Last Assessment & Plan: Not present on admission No leak on ENT scope 7/10, rescope 7/12 for new clear rhinorrhea with clear liquid but no obvious leak source Treated with Endoscopic endonasal approach for repair of CSF leak Remove lumbar drain Hyponatremia 03/30/2020 04/02/2020 Last Assessment & Plan: See [facility] adolescent visit 03/02/2011 01/26/2022 Acne 03/02/2011 01/21/2015 documented as of this encounter (statuses as of 12/18/2022) [facility] History of Past illness Narrative* Problem Noted Date Resolved Date Postoperative CSF leak 04/05/2020 2 Last Assessment & Plan: Not present on admission No leak on ENT scope 7/10, rescope 7/12 for new clear rhinorrhea with clear liquid but no obvious leak source Treated with Endoscopic endonasal approach for repair of CSF leak Remove lumbar drain Hyponatremia 03/30/2020 04/02/2020 Last Assessment & Plan: See [facility] adolescent visit 03/02/2011 01/26/2022 Acne 03/02/2011 01/21/2015 documented as of this encounter (statuses as of 01/13/2023) [facility] History of Past illness Narrative* Problem Noted Date Resolved Date Postoperative CSF leak 04/05/2020 2 Last Assessment & Plan: Not present on admission No leak on ENT scope 7/10, rescope 7/12 for new clear rhinorrhea with clear liquid but no obvious leak source Treated with Endoscopic endonasal approach for repair of CSF leak Remove lumbar drain Hyponatremia 03/30/2020 04/02/2020 Last Assessment & Plan: See [facility] adolescent visit 03/02/2011 01/26/2022 Acne 03/02/2011 01/21/2015 documented as of this encounter (statuses as of 02/27/2023) [facility] History of Past illness Narrative* Problem Noted Date Diagnosed Date Resolved Date Postoperative CSF leak 04/05/202001/26 Last Assessment & Plan: Not present on admission No leak on ENT scope 7/10, rescope 7/12 for new clear rhinorrhea with clear liquid but no obvious leak source Treated with Endoscopic endonasal approach for repair of CSF leak Remove lumbar drain Hyponatremia 03/30/2020 04/02/2020 Last Assessment & Plan: See [facility] adolescent visit 03/02/20112021 Acne 03/02/2011 01/21/2015 documented as of this encounter (statuses as of 04/10/2023) [facility] History of Past illness Narrative* Problem Noted Date Diagnosed Date Resolved Date Postoperative CSF leak 04/05/202001/26 Last Assessment & Plan: Not present on admission No leak on ENT scope 7/10, rescope 7/12 for new clear rhinorrhea with clear liquid but no obvious leak source Treated with Endoscopic endonasal approach for repair of CSF leak Remove lumbar drain Hyponatremia 03/30/2020 04/02/2020 Last Assessment & Plan: See [facility] adolescent visit 03/02/20112021 Acne 03/02/2011 01/21/2015 documented as of this encounter (statuses as of 04/12/2023) [facility] History of Past illness Narrative* Problem Noted Date Diagnosed Date Resolved Date Postoperative CSF leak 04/05/202001/26 Last Assessment & Plan: Not present on admission No leak on ENT scope 7/10, rescope 7/12 for new clear rhinorrhea with clear liquid but no obvious leak source Treated with Endoscopic endonasal approach for repair of CSF leak Remove lumbar drain Hyponatremia 03/30/2020 04/02/2020 Last Assessment & Plan: See [facility] adolescent visit 03/02/20112021 Acne 03/02/2011 01/21/2015 documented as of this encounter (statuses as of 07/17/2023) [address]13-2020 History of Past illness Narrative* Problem Noted Date Diagnosed Date Resolved Date Postoperative CSF leak 04/05/202001/26 Last Assessment & Plan: Not present on admission No leak on ENT scope 7/10, rescope 7/12 for new clear rhinorrhea with clear liquid but no obvious leak source Treated with Endoscopic endonasal approach for repair of CSF leak Remove lumbar drain Hyponatremia 03/30/2020 04/02/2020 Last Assessment & Plan: See [facility] Well adolescent visit 03/02/20112021 Acne 03/02/2011 01/21/2015 documented as of this encounter (statuses as of 07/29/2023) [place] [address]-07-2020 History of Past illness Narrative* Problem Noted Date Resolved Date Hyponatremia 03/30/2020 04/02/2020 Last Assessment & Plan: See [facility] Acne 03/02/2011 01/21/2015 documented as of this encounter (statuses as of 01/02/2022) [address]07-2020 History of Past illness Narrative* Problem Noted Date Resolved Date Hyponatremia 03/30/2020 04/02/2020 Last Assessment & Plan: See [facility] Acne 03/02/2011 01/21/2015 documented as of this encounter (statuses as of 01/10/2022) [address]07-2020 History of Past illness Narrative* Problem Noted Date Resolved Date Hyponatremia 03/30/2020 04/02/2020 Last Assessment & Plan: See [facility] Acne 03/02/2011 01/21/2015 documented as of this encounter (statuses as of 01/16/2022) [facility] Diagnosis Abnormal thyroid blood test- Primary Nonspecific abnormal results of thyroid function study documented [facility] this encounter [facility] Diagnosis 31 weeks gestation of - Primary state, incidental [facility] Anemia during in third trimester- Primary 33 weeks gestation of state, incidental [facility] Diagnosis Encounter for supervision of normal first in third trimester- Primary Supervision of normal first 35 weeks gestation of state, incidental [facility] noteNo assessment information availableWWilson [facility] Work Phone: Evaluation note* Diagnosis Encounter for supervision of normal first in third trimester- Primary Supervision of normal first 36 weeks gestation of state, incidental [facility] Diagnosis Encounter for supervision of normal first in third trimester- Primary Supervision of normal first 37 weeks gestation of state, incidental [facility] this [facility] Diagnosis Encounter for supervision of normal first in third trimester- Primary Supervision of normal first 38 weeks gestation of state, incidental [facility] this encounter [facility]* Diagnosis Encounter for supervision of normal first in third trimester- Primary Supervision of normal first 40 weeks gestation of state, incidental documented [facility] this encounter [facility]* Diagnosis Encounter for supervision of other normal in third trimester- Primary 40 weeks gestation of state, incidental [facility] this [facility]* Diagnosis Post-term , 40-42 weeks of gestation- Primary Post term , unspecified episode of care 40 weeks gestation of state, incidental [facility] this encounter [facility]* Diagnosis Onset Date Resolution Status 40 weeks gestation of acute Category II heart rate tracing during maternal care in third trimester acute Delivery by section acute Encounter for elective induction of labor acute intolerance to labor, delivered, current hospitalization acute H/O: pituitary tumor acute Lactating mother acute Meconium in amniotic fluid a ffecting management of mother acute [facility] Work Phone: Evaluation note* Diagnosis Pituitary mass (HCC)- Primary Unspecified disorder of the pituitary gland and its hypothalamic control Excessive sweating Generalized hyperhidrosis documented in this encounter [facility]* Diagnosis care and examination- Primary Routine follow-up documented in this encounter [facility]* Diagnosis Acquired hypothyroidism- Primary Unspecified hypothyroidism documented in this encounter [facility]* Diagnosis Tick bite, unspecified site, initial encounter- Primary documented in this encounter [facility]* Diagnosis Pituitary adenoma (HCC)- Primary Benign neoplasm of pituitary gland and craniopharyngeal duct (pouch) Hypothyroidism, unspecified type documented in this encounter [facility]* Diagnosis Pituitary adenoma (HCC) Benign neoplasm of pituitary gland and craniopharyngeal duct (pouch) documented in this encounter [facility]* Diagnosis Pituitary mass (HCC)- Primary Unspecified disorder of the pituitary gland and its hypothalamic control documented [facility] this encounter [facility]* Diagnosis Hyponatremia Hyposmolality and/or hyponatremia SIADH (syndrome of inappropriate ADH production) (HCC) Other disorders of neurohypophysis Postoperative meningitis Meningitis, unspecified UTI (urinary tract infection) in , antepartum- Primary Infections of genitourinary tract antepartum documented [facility] this encounter [facility]* Diagnosis Hyponatremia Hyposmolality and/or hyponatremia SIADH (syndrome of inappropriate ADH production) (HCC) Other disorders of neurohypophysis Postoperative meningitis Meningitis, unspecified with uncertain dates, antepartum- Primary state, incidental History of section Other postprocedural status History of anxiety Personal history of other mental disorder Fear associated with healthcare History of thyroid disorder History of posttraumatic stress disorder (PTSD) 8 weeks gestation of state, incidental [facility] Additional Instructions Call your graphic production artist, Dr. Avila for recheck.[facility] Work Phone: Hospital Discharge instructionsWWilson Memorial Hospital Work Phone: Progress note Author Bethany Saldaña [facility] Note Date/Time February 09, 2025 9:39a m [facility] [address] [place] [address], [address] [place] [address] OFFICE VISIT Date of Service: 02/09/25 MR#: [id number] Acct: [id number] Name: RODNEY NGUYEN Rep #: [id number] : 1995 Provider: Dr. Serenity Fry DO Age/Sex: 29/F [place] [facility] [place]: Signed Intake Vital Signs 08/26/24 09:12 08/26/24 10:03 01/26/25 09:40 02/09/25 09:13 02/09/25 09:14 Height 5 ft 3 in 5 ft 3 in 5 ft 3 in 5 ft 3 in 5 ft 3 in Weight: 155 lb 8 oz BMI 27.5 BP 122/75 H Intake Visit Reasons: 36 wk ob *jv c/sec Paid Search Marketing Strategist Required: No Is patient in pain?: No Allergies amoxicillin Allergy (Verified 02/09/25 09:13) Hives Penicillins Allergy (Verified 02/09/25 09:13) Hives Medications ?Medication ?Instructions ?Recorded ?Confirmed ?Type vit with calcium-iron 1 tab PO DAILY pregnanc y 03/31/22 02/09/25 History fum-folic acid 60 mg iron-1 mg tablet acetaminophen 500 mg tablet 1,000 mg (2 x 500 mg) PO Q 6H #0 04/03/22 02/09/25 Rx tabs Last Menstrual Period: 05/30/24 Zika: Zika virus screening: Negative : No PFSH PFSH Medical History H/O: pituitary tumor Meconium in amniotic fluid affecting management of mother intolerance to labor, delivered, current hospitalization Postoperative pain Lactating mother Category II heart rate tracing during maternal care in third trimester Encounter for elective induction of labor 40 weeks gestation of Pituitary adenoma Surgical History H/O brain surgery H/O section Family History Grandfather Cancer, Onset Age: 70 Paternal Leukemia Heart disease Paternal Grandfather Cancer, Onset Age: 60 Maternal Prostate, lung cancer Social History adopted: No household members: spouse and children number of children: 1 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 history of recent travel: No sexually active: Yes Smoking Status: Never smoker alcohol intake: current alcohol intake frequency: holidays/special occasions only details: Not while substance use type: does not use well-balanced diet: daily or most days caffeine: Yes (occasional) Type: coffee Number of servings: 1 and tea Number ofservings: 1 eating out: 1-3 times/week during the past year weight has: remained stable what type of physical activity do you participate in: walking frequency: 1-2 times per week duration: 15-30 minutes/day andreina/anglican: Taoist seatbelt use: always do you feel safe at home: Yes additional social history: 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 Date Name GA/Weeks Outcome Route Bth Weight Infant Gen Labor Lgth Anesthesia Del Locatn Provider FOB 04/01/22 Domonique 40 live - full term 7#3oz Female e pidural [facility] Karely Rico Delivery Date: 04/01/22 Last Updated by: Denisse ibarra section due to distress HPI 36 wk ob *jv c/sec Details: RODNEY NGUYEN is a 29 year old who presents for routine OB visit. OB Visit [facility]ARA Calculator Estimated Delivery Date Method Current WG Current Estimate 03/06/25 LMP (Certain) 36w 3d Expected Delivery Route/Plan for repeat section Specific Issue/Plans Covid status: [] Flu vaccine: [] Tdap vaccine: given Rhogam: [] LARC form signed: yes Problem list reviewed and updated with the most current plan of care details and appropriate orders placed. Relevant counseling for the gestational age provided. Continue routine care and follow up unless otherwise noted in visit notes/problem list details Initial Weight: 129 lb Date -?-?-?-?-?-?-?-?-?-?-?-?- EGA Weight BP Urine Prot -?-?-?-?-?-?-?-?-?-?-?-?- Glucose FHR FuHt Pres Dilation -?-?-?-?-?-?-?-?-?-?-?-?- Effaced St Visit Note 08/26/24 -?-?-?-?-?-?-?-?-?-?-?-?- 12w 4d 129 lb 6 oz (+6 oz) 134/88 -?-?-?-?-?-?-?-?-?-?-?-?- 168 -?-?-?-?-?-?-?-?-?-?-?-?- JV- CRL consiste nt with LMP and earlier us. She [facility] with [facility]. cs for failure to progress and intolerance to labor. Declines NIPT. had new ob labs here and gc/ct at [facility]. will need records. 09/29/24 -?-?-?-?-?-?-?-?-?-?-?-?- 17w 3d 133 lb (+4 lb) 134/79 113/76 Negative -?-?-?-?-?-?-?-?-?-?-?-?- Negative 145 -?-?-?-?-?-?-?-?-?-?-?-?- KW- no vb/sandy ng. US scheduled 10/29/24 -?-?-?-?-?-?-?-?-?-?-?-?- 21w 5d 136 lb 2 oz (+7 lb 2 oz) 122/77 Negative -?-?-?-?-?-?-?-?-?-?-?-?- Negative 145 22 -?-?-?-?-?-?-?-?-?-?-?-?- SM- no vb lof go od fm no regular ctx 11/25/24 -?-?-?-?-?-?-?-?-?-?-?-?- 25w 4d 144 lb (+15 lb) 126/86 Negative -?-?-?-?-?-?-?-?-?-?-?-?- Negative 140 25 -?-?-?-?-?-?-?-?-?-?-?-?- JV- having a champ Salazar! wants her cs on sundayMarch 03 with a tubal. 12/24/24 -?-?-?-?-?-?-?-?-?-?-?-?- 29w 5d 147 lb (+18 lb) 114/72 Negative -?-?-?--?-?-?-?-?-?-?-?-?- Negative 132 29 -?-?-?-?-?-?-?-?-?-?-?-?- MH-No VB, LOF. G ood FM. Started Fe. Robb, tdap. 01/08/25 -?-?-?-?-?-?-?-?-?-?-?-?- 31w 6d 150 lb 4 oz (+21 lb 4 oz) 123/82 Negative -?-?-?-?-?-?-?-?-?-?-?-?- Negative 130 30 -?-?-?-?-?-?-?-?-?-?-?-?- JV- planning to move her cs to 03/02. no complaints today other than baby kicking in ribs. 01/21/25 -?-?-?-?-?-?-?-?-?-?-?-?- 33w 5d 151 lb 6 oz (+22 lb 6 oz) 133/75 Trace -?-?-?-?-?-?-?-?-?-?-?-?- Negative 140 32 -?-?-?-?-?-?-?-?-?-?-?-?- SM- no vb no ctx lof good fm SM- no vb no ctx lof good fm growth US ordered 01/26/25 -?-?-?-?-?-?-?-?-?-?-?-?- 34w 3d 154 lb 8 oz (+25 lb 8 oz) 124/81 Negative -?-?-?-?-?-?-?-?-?-?-?-?- Negative 133 34 -?-?-?-?-?-?-?-?-?-?-?-?- JV- growth scan today shows AC 64th% and DREA 11.4. overall growth is also normal. formal report pending. repeating bp. 02/09/25 -?-?-?-?-?-?-?-?-?-?-?-?- 36w 3d 155 lb 8 oz (+26 lb 8 oz) 122/75 Negative -?-?-?-?-?-?-?-?-?-?-?-?- Negative 122 26 Cephalic -?-?-?-?-?-?-?-?-?-?-?-?- JV- No complaint s today. gbs collected. questions about section answered. ACOG First Trimester First Trimester: Discussed Second Trimester Second Trimester: Signs and Symptoms of Labor; Discussed Tobacco Cessation, Discussed Depression/Anxiety and Discussed Intimate Partner Violence Third Trimester Third Trimester: Pain Management Plans, Labor support person(s), Immediate Larc, Signs and Symptoms of Preeclampsia, Feeding No and Family Medical Leave or Disability Forms; Discussed Circumcision preference Results POC Urinalysis 2 Dip (Clinic) Office Urine Glucose Negative Last Edit by Delores Adams on 02/09/25 09: 27 Office Urine Protein Negative Last Edit by Delores Adams on 02/09/25 09: 27 Coding Level of Care Code OB Routine Diagnoses Uterine size-date discrepancy, third trimester O26.843 Anemia during in third trimester O99.013 Trimester: third trimester Supervision of high risk in first trimester O09.91 Anxiety F41.9 36 weeks gestation of Z3A.36 Weeks of gestation: 36 weeks Delivery by section Assessment and Plan Assessment and Plan (1) Uterine size-date discrepancy, third trimester: Status: Acute Comment: growth us ordered (2) Anemia in preg-unspec: Status: Acute Qualifiers: Trimester: third trimester Qualified Code(s): O99.013 - Anemia complicating , third trimester Comment: add FE (3) Supervision of high risk in first trimester: Status: Acute Comment: PRR CIARA 03/06/25 girl Marie Youssef : Trisha (4) Anxiety: Status: Acute (5) : Status: Acute Qualifiers: Weeks of gestation: 36 weeks Qualified Code(s): Z3A.36 - 36 weeks gestation of Comment: Declines NIPT/Carrier. afp declined. nl anatomy (6) Delivery by section: Status: Acute Comment: d/t intolerance, meconium in amniotic fluid RLTCS BS scheduled for 03/02 @ 7:15 with JV Orders: Orders POC Urinalysis 2 Dip (Clinic) Today Culture, Group B Streptococcus Today O09.91 - Supervision of high risk , unspecified, first trimester 02/09/25 0940 <Electronically signed by Bethany Bustamante DO> Date _ Bethany Fry DO Cosigner Signature: Date (if applicable) CC: ~ [facility] Work Phone: progrnqk note Author Edna Jose [facility] Note Date/Time February 27, 2025 8:54a m [facility] [address] [place] [address], [address] [place] [address] OFFICE VISIT Date of Service: 02/27/25 MR#: [id number] Acct: [id number] Name: RODNEY NGUYEN Rep #: [id number] : 1995 Provider: ELLEN Garcia Age/Sex: 29/F Location: [facility] Status: Signed Intake Vital Signs 02/18/25 09:16 02/27/25 08:29 02/27/25 08:30 Height 5 ft 3 in 5 ft 3 in 5 ft 3 in Weight: 156 lb 2 oz BMI 27.6 BP 133/85 H Intake Visit Reasons: 38wk ob *jv csection Paid Search Marketing Strategist Required: No Is patient in pain?: No Allergies amoxicillin Allergy (Verified 02/27/25 08:27) Hives Penicillins Allergy (Verified 02/27/25 08:27) Hives Medications ?Medication ?Instructions ?Recorded ?Confirmed ?Type vit with calcium-iron 1 tab PO DAILY pregnanc y 03/31/22 02/27/25 History fum-folic acid 60 mg iron-1 mg tablet acetaminophen 500 mg tablet 1,000 mg (2 x 500 mg) PO Q 6H #0 04/03/22 02/27/25 Rx tabs Last Menstrual Period: 05/30/24 Zika: Zika virus screening: Negative : No PFSH PFSH Medical History H/O: pituitary tumor Meconium in amniotic fluid affecting management of mother intolerance to labor, delivered, current hospitalization Postoperative pain Lactating mother Category II heart rate tracing during maternal care in third trimester Encounter for elective induction of labor 40 weeks gestation of Pituitary adenoma Surgical History H/O brain surgery H/O section Family History Grandfather Cancer, Onset Age: 70 Paternal Leukemia Heart disease Paternal Grandfather Cancer, Onset Age: 60 Maternal Prostate, lung cancer Social History adopted: No household members: spouse and children number of children: 1 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 history of recent travel: No sexually active: Yes Smoking Status: Never smoker alcohol intake: current alcohol intake frequency: holidays/special occasions only details: Not while substance use type: does not use well-balanced diet: daily or most days caffeine: Yes (occasional) Type: coffee Number of servings: 1 and tea Number ofservings: 1 eating out: 1-3 times/week during the past year weight has: remained stable what type of physical activity do you participate in: walking frequency: 1-2 times per week duration: 15-30 minutes/day andreina/anglican: Taoist seatbelt use: always do you feel safe at home: Yes additional social history: Trisha- SYLVIA History 2 Elective abortions Hx Para 1 Spontaneous abortions Hx # Term Pregnancies Ectopic pregnancies Hx # Pregnancies Multiple births # of living children 1 Past Pregnancies Del. Date Name GA/Weeks Outcome Route Bth Weight Gen Labor [facility] 04/[facility]/22 Domonique 40 live - full term 7#3oz Female e pidural [facility] Karely Rico Delivery Date: 04/01/22 Last Updated by: Denisse Wang c section due to distress HPI 38wk ob *jv csection Details: RODNEY NGUYEN is a 29 year old who presents for routine OB visit. OB Visit CIARA Calculator Estimated Delivery Date Method Current WG Current Estimate 03/06/25 LMP (Certain) 39w 0d Expected Delivery Route/Plan for repeat section Specific Issue/Plans Covid status: [] Flu vaccine: [] Tdap vaccine: given Rhogam: [] LARC form signed: yes Problem list reviewed and updated with the most current plan of care details and appropriate orders placed. Relevant counseling for the gestational age provided. Continue routine care and follow up unless otherwise noted in visit notes/problem list details Initial Weight: 129 lb Date -?-?-?-?-?-?-?-?-?-?-?-?- EGA Weight BP Urine Prot -?-?-?-?-?-?-?-?-?-?-?-?- Glucose FHR FuHt Pres Dilation -?-?-?-?-?-?-?-?-?-?-?-?- Effaced St Visit Note 08/26/24 -?-?-?-?-?-?-?-?-?-?-?-?- 12w 4d 129 lb 6 oz (+6 oz) 134/88 -?-?-?-?-?-?-?-?-?-?-?-?- 168 -?-?-?-?-?-?-?-?-?-?-?-?- JV- CRL consiste nt with LMP and earlier us. She had her last baby with ccf. cs for failure to progress and intolerance to labor. Declines NIPT. had new ob labs here and gc/ct at [facility]. will need records. 09/29/24 -?-?-?-?-?-?-?-?-?-?-?-?- 17w 3d 133 lb (+4 lb) 134/79 113/76 Negative -?-?-?-?-?-?-?-?-?-?-?-?- Negative 145 -?-?-?-?-?-?-?-?-?-?-?-?- KW- no vb/crampi ng. US scheduled 10/29/24 -?-?-?-?-?-?-?-?-?-?-?-?- 21w 5d 136 lb 2 oz (+7 lb 2 oz) 122/77 Negative -?-?-?-?-?-?-?-?-?-?-?-?- Negative 145 22 -?-?-?-?-?-?-?-?-?-?-?-?- SM- no vb lof go od fm no regular ctx 11/25/24 -?-?-?-?-?-?-?-?-?-?-?-?- 25w 4d 144 lb (+15 lb) 126/86 Negative -?-?-?-?-?-?-?-?-?-?-?-?- Negative 140 25 -?-?-?-?-?-?-?-?-?-?-?-?- JV- having a champ Salazar! wants her cs on sundayMarch 03 with a tubal. 12/24/24 -?-?-?-?-?-?-?--?-?-?-?-?- 29w 5d 147 lb (+18 lb) 114/72 Negative -?-?-?-?-?-?-?-?-?-?-?-?- Negative 132 29 -?-?-?-?-?-?-?-?-?-?-?-?- MH-No VB, LOF. G ood FM. [facility]. 01/08/25 -?-?-?-?-?-?-?-?-?-?-?-?- 31w 6d 150 lb 4 oz (+21 lb 4 oz) 123/82 Negative -?-?-?-?-?-?-?-?-?-?-?-?- Negative 130 30 -?-?-?-?-?-?-?-?-?-?-?-?- JV- planning to move her cs to 03/02. no complaints today other than baby kicking in ribs. 01/21/25 -?-?-?-?-?-?-?-?-?-?-?-?- 33w 5d 151 lb 6 oz (+22 lb 6 oz) 133/75 Trace -?-?-?-?-?-?-?-?-?-?-?-?- Negative 140 32 -?-?-?-?-?-?-?-?-?-?-?-?- SM- no vb no ctx lof good fm SM- no vb no ctx lof good fm growth US ordered 01/26/25 -?-?-?-?-?-?-?-?-?-?-?-?- 34w 3d 154 lb 8 oz (+25 lb 8 oz) 124/81 Negative -?-?-?-?-?-?-?-?-?-?-?-?- Negative 133 34 -?-?-?-?-?-?-?-?-?-?-?-?- JV- growth scan today shows AC 64th% and DREA 11.4. overall growth is also normal. formal report pending. repeating bp. 02/09/25 -?-?-?-?-?-?-?-?-?-?-?-?- 36w 3d 155 lb 8 oz (+26 lb 8 oz) 122/75 Negative -?-?-?-?-?-?-?-?-?-?-?-?- Negative 122 26 Cephalic -?-?-?-?-?-?-?-?-?-?-?-?- JV- No complaint s today. gbs collected. questions about section answered. 02/18/25 -?-?-?-?-?-?-?-?-?-?-?-?- 37w 5d 156 lb 8 oz (+27 lb 8 oz) 132/85 Negative -?-?-?-?-?-?-?-?-?-?-?-?- Negative 129 37 Cephalic -?-?-?-?-?-?-?-?-?-?-?-?- JV- no lof, vagi nal bleeding, or dec fm. consent signed today for section. 02/27/25 -?-?-?-?-?-?-?-?-?-?-?-?- 39w 0d 156 lb 2 oz (+27 lb 2 oz) 133/85 -?-?-?-?-?-?-?-?-?-?-?-?- 138 37 Cephalic -?-?-?-?-?-?-?-?-?-?-?--?- LC- no vb/ctx/lo f. good fm. has c/s on sunday ACOG First Trimester First Trimester: Discussed Second Trimester Second Trimester: Signs and Symptoms of Labor; Discussed Tobacco Cessation, Discussed Depression/Anxiety and Discussed Intimate Partner Violence Third Trimester Third Trimester: Pain Management Plans, Labor support person(s), Immediate Larc, Signs and Symptoms of Preeclampsia, Feeding No and Family Medical Leave or Disability Forms; Discussed Circumcision preference ROS Const Reports system reviewed and no additional complaints, except as documented GI Denies nausea and Denies vomiting Denies urinary hesitancy and Denies urinary urgency Exam Const Orientation: alert, awake and oriented x3 Resp Effort & Inspection: normal respiratory effort, able to speak in complete sentences and symmetric chest movement GI Palpation: soft (gravid) OB/External & Speculum: other (fundus appriopriate for GA) Coding Level of Care Code OB Routine Diagnoses Uterine size-date discrepancy, third trimester O26.843 Anemia during in third trimester O99.013 Trimester: third trimester Supervision of high risk in first trimester O09.91 Anxiety F41.9 39 weeks gestation of Z3A.39 Weeks of gestation: 39 weeks Delivery by section Assessment and Plan Assessment and Plan (1) Uterine size-date discrepancy, third trimester: Status: Acute Comment: growth us ordered (2) Anemia in preg-unspec: Status: Acute Qualifiers: Trimester: third trimester Qualified Code(s): O99.013 - Anemia complicating , third trimester Comment: add FE (3) Supervision of high risk in first trimester: Status: Acute Comment: PRR CIARA 03/06/25 girl Marielucía Youssef : Trisha (4) Anxiety: Status: Acute (5) : Status: Acute Qualifiers: Weeks of gestation: 39 weeks Qualified Code(s): Z3A.39 - 39 weeks gestation of Comment: Declines NIPT/Carrier. afp declined. nl anatomy (6) Delivery by section: Status: Acute Comment: d/t intolerance, meconium in amniotic fluid RLTCS BS scheduled for 03/02 @ 7:15 with JV Orders: Orders POC Urinalysis 2 Dip (Clinic) Today Plan Details Additional Comments: ACOG trimester education reviewed and updated. see problem list details for updated plan management information and see below for orders placed at this visit. GA appropriate handout given. 02/27/25 0854 <Electronically signed by Edna ziegler CNM> Date _ Edna TOPETE Cosigner Signature: Date (if applicable) CC: ~ [facility] Work Phone: Reason for referral (narrative)* Diagnostic Procedure Only (Routine) - Authorized Specialty Diagnoses / Procedures [facility] Referred To Contact [facility] Diagnoses Encounter for supervision of other normal in third trimester 40 weeks gestation of Procedures OBSTETRIC ULTRASOUND WHI US PREG UTERUS AFTER 1ST TRIMEST GESTATION Kristi Mcqueen MD [address] [place] [address] [facility] [address] [place] [address] Referral ID Status Reason Start Date Expiration Date Visits Requested Visits Authorized [id number] Authorized Auto-Generat ed Referral 03/29/2022 03/29/2023 1 1 [facility] for referral (narrative)* Diagnostic Procedure Only (Routine) - Closed Specialty Diagnoses / Procedures [facility] Referred To Contact MR IMAGING Diagnoses Pituitary adenoma (HCC) Procedures MRI PITUITARY WO/W IVCON MRI BRAIN BRAIN STEM W/O W/CONTRAST MATERIAL Adelina Martin MD [address] [place] [address] Mr [facility] [place] [address] Referral ID Status Reason Start Date Expiration Date V isits Requested Visits Authorized [id number] Closed Auto-Generate d Referral 03/19/2023 04/09/2023 1 1 [facility] for referral (narrative)No reason for [facility] Work Phone: Reason for visit Narrative* Diagnostic Procedure Only (Routine) - Closed Specialty Diagnoses / Procedures [facility] Referred To Contact MR IMAGING Diagnoses Pituitary adenoma (HCC) Procedures MRI PITUITARY WO/W IVCON MRI BRAIN BRAIN STEM W/O W/CONTRAST MATERIAL Adelina Martin MD [address] [place] [id number] [place] [address] Referral ID Status Reason Start Date Expiration Date V isits Requested Visits Authorized [id number] Closed Auto-Generate d Referral 03/19/2023 04/09/2023 1 1 [facility] Advance Directives No Advanced Directives Records FoundDocuments on File Type Date 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(s) 03/30/2020 4:42 PM Advance Directive(s) 03/10/2020 3:07 PM Latest Code Status on File Code Status Date Activated Date Inactivated Comments Full Code 04/11/2020 2:59 PM Advance Directive Response Recorded Date/ Time Living Will No February 24, 2022 1 0:53am Power of Integration Engineer No February 24, 2022 10:53am Documents on File Type Date Recorded 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(s) 03/30/2020 4:42 PM Advance Directive(s) 03/10/2020 3:07 PM Latest Code Status on File Code Status Date Activated Date Inactivated Comments Full Code 04/11/2020 2:59 PM Advance Directive Response Recorded Date/ Time Living Will No March 31, 2022 5 :31pm Power of Integration Engineer No March 31, 2022 5:31pm Latest Code Status on File Code Status Date Activated Date Inactivated Comments Full Code 04/11/2020 2:59 PM Latest Code Status on File Code Status Date Activated Date Inactivated Comments Full Code 04/11/2020 2:59 PM Date Activated Date Inactivated Comments 04/11/2020 2:59 PM Date Activated Date Inactivated Comments 04/11/2020 2:59 PM Advance Directive Response Recorded Date/ Time Living Will No March 31, 2022 5 :31pm Do you have a Healthcare Power of Integration Engineer? No March 31, 2022 5:31pm Chief Complaint and Reason for Visit Chief Complaint VOMITING Chief Complaint VOMITING PRIMARY Reason for Visit 40 weeks gestation o f Category II heart rate tracing during maternal care in third trimester Delivery by section Encounter for elective induction of labor intolerance to labor, delivered, current hospitalization H/O: pituitary tumor Lactating mother Meconium in amniotic fluid affecting management of mother Chief Complaint Admit Date NOB LMP August 26, 2024 9 :05am 16wk OB *jv c/sec September 29, 2024 10 :23am 20wk OB *jv c/sec October 29, 2024 1 0:37am 24 wk ob *jv c/sec November 25, 2024 8:37 am Reason for Visit Admit Date Anxiety August 26, 2024 9 :05am Delivery by section August 9:05am August 26, 2024 9 :05am Supervision of high risk in fi rst trimester August 26, 2024 9:05am H/O: pituitary tumor August 26, 2024 9:05am Anxiety September 29, 2024 10 :23am Delivery by section September 10:23am September 29, 2024 10 :23am Supervision of high risk in fi rst trimester September 29, 2024 10:23am H/O: pituitary tumor September 29, 2024 1 0:23am Anxiety October 29, 2024 1 0:37am Delivery by section October 10:37am October 29, 2024 1 0:37am Supervision of high risk in fi rst trimester October 29, 2024 10:37am Anxiety November 25, 2024 8:37 am Delivery by section November 25, 2024 8:37am November 25, 2024 8:37 am Supervision of high risk in fi rst trimester November 25, 2024 8:37am Chief Complaint Admit Date 20wk OB *jv c/sec October 29, 2024 1 0:37am 24 wk ob *jv c/sec November 25, 2024 8:37 am 28 wk ob *jv c/sec December 24, 2024 9:58 am 30 wk ob *jv c/sec January 08, 2025 8:4 4am 32 wk ob *jv c/sec January 21, 2025 8:4 5am 34 wk ob *jv csec January 26, 2025 9:27am 36 wk ob *jv c/sec February 09, 2025 9:03a m Reason for Visit Admit Date Anxiety October 29, 2024 1 0:37am Delivery by section October 10:37am February 5th, 2025 1 0:37am Supervision of high risk in fi rst trimester October 29, 2024 10:37am Anxiety November 25, 2024 8:37 am Delivery by section November 25, 2024 8:37am November 25, 2024 8:37 am Supervision of high risk in fi rst trimester November 25, 2024 8:37am Anemia in preg-unspec December 24, 2024 9: 58am Anxiety December 24, 2024 9:58 am Delivery by section December 24, 2024 9:58am December 24, 2024 9:58 am Supervision of high risk in fi rst trimester December 24, 2024 9:58am Anemia in preg-unspec January 08, 2025 8 :44am Anxiety January 08, 2025 8:4 4am Delivery by section January 08, 2025 8:44am January 08, 2025 8:4 4am Supervision of high risk in fi rst trimester January 08, 2025 8:44am Anemia in preg-unspec January 21, 2025 8 :45am Anxiety January 21, 2025 8:4 5am Delivery by section January 21, 2025 8:45am January 21, 2025 8:4 5am Supervision of high risk in fi rst trimester January 21, 2025 8:45am Uterine size-date discrepancy, third tri mester January 21, 2025 8:45am Anemia in preg-unspec January 26, 2025 9:27 am Anxiety January 26, 2025 9:27am Delivery by section January 26 9:27am January 26, 2025 9:27am Supervision of high risk in fi rst trimester January 26, 2025 9:27am Uterine size-date discrepancy, third tri mester January 26, 2025 9:27am Anemia in preg-unspec February 09, 2025 9:0 3am Anxiety February 09, 2025 9:03a m Delivery by section February 09, 2 025 9:03am February 09, 2025 9:03a m Supervision of high risk in fi rst trimester February 09, 2025 9:03am Uterine size-date discrepancy, third tri mester February 09, 2025 9:03am Chief Complaint Admit Date 20wk OB *jv c/sec October 29, 2024 1 0:37am 24 wk ob *jv c/sec November 25, 2024 8:37 am 28 wk ob *jv c/sec December 24, 2024 9:58 am 30 wk ob *jv c/sec January 08, 2025 8:4 4am 32 wk ob *jv c/sec January 21, 2025 8:4 5am 34 wk ob *jv csec January 26, 2025 9:27am 36 wk ob *jv c/sec February 09, 2025 9:03a m 37 wk ob *jv c/sec February 18, 2025 9:03a m Reason for Visit Admit Date Anxiety October 29, 2024 1 0:37am Delivery by section October 10:37am October 29, 2024 1 0:37am Supervision of high risk in fi rst trimester October 29, 2024 10:37am Anxiety November 25, 2024 8:37 am Delivery by section November 25, 2024 8:37am November 25, 2024 8:37 am Supervision of high risk in fi rst trimester November 25, 2024 8:37am Anemia in preg-unspec December 24, 2024 9: 58am Anxiety December 24, 2024 9:58 am Delivery by section December 24, 2024 9:58am December 24, 2024 9:58 am Supervision of high risk in fi rst trimester December 24, 2024 9:58am Anemia in preg-unspec January 08, 2025 8 :44am Anxiety January 08, 2025 8:4 4am Delivery by section January 08, 2025 8:44am January 08, 2025 8:4 4am Supervision of high risk in fi rst trimester January 08, 2025 8:44am Anemia in preg-unspec January 21, 2025 8 :45am Anxiety January 21, 2025 8:4 5am Delivery by section January 21, 2025 8:45am January 21, 2025 8:4 5am Supervision of high risk in fi rst trimester January 21, 2025 8:45am Uterine size-date discrepancy, third tri mester January 21, 2025 8:45am Anemia in preg-unspec January 26, 2025 9:27 am Anxiety January 26, 2025 9:27am Delivery by section January 26 9:27am January 26, 2025 9:27am Supervision of high risk in fi rst trimester January 26, 2025 9:27am Uterine size-date discrepancy, third tri mester January 26, 2025 9:27am Anemia in preg-unspec February 09, 2025 9:0 3am Anxiety February 09, 2025 9:03a m Delivery by section February 09, 2 025 9:03am February 09, 2025 9:03a m Supervision of high risk in fi rst trimester February 09, 2025 9:03am Uterine size-date discrepancy, third tri mester February 09, 2025 9:03am Anemia in preg-unspec February 18, 2025 9:0 3am Anxiety February 18, 2025 9:03a m Delivery by section February 18, 025 9:03am February 18, 2025 9:03a m Supervision of high risk in fi rst trimester February 18, 2025 9:03am Uterine size-date discrepancy, third tri mester February 18, 2025 9:03am Chief Complaint Admit Date 24 wk ob *jv c/sec November 25, 2024 8:37 am 28 wk ob *jv c/sec December 24, 2024 9:58 am 30 wk ob *jv c/sec January 08, 2025 8:4 4am 32 wk ob *jv c/sec January 21, 2025 8:4 5am 34 wk ob *jv csec January 26, 2025 9:27am 36 wk ob *jv c/sec February 09, 2025 9:03a m 37 wk ob *jv c/sec February 18, 2025 9:03a m 38wk ob *jv csection February 27, 2025 8:22 am Reason for Visit Admit Date Anxiety November 25, 2024 8:37 am Delivery by section November 25, 2024 8:37am November 25, 2024 8:37 am Supervision of high risk in fi rst trimester November 25, 2024 8:37am Anemia in preg-unspec December 24, 2024 9: 58am Anxiety December 24, 2024 9:58 am Delivery by section December 24, 2024 9:58am December 24, 2024 9:58 am Supervision of high risk in fi rst trimester December 24, 2024 9:58am Anemia in preg-unspec January 08, 2025 8 :44am Anxiety January 08, 2025 8:4 4am Delivery by section January 08, 2025 8:44am January 08, 2025 8:4 4am Supervision of high risk in fi rst trimester January 08, 2025 8:44am Anemia in preg-unspec January 21, 2025 8 :45am Anxiety January 21, 2025 8:4 5am Delivery by section January 21, 2025 8:45am January 21, 2025 8:4 5am Supervision of high risk in fi rst trimester January 21, 2025 8:45am Uterine size-date discrepancy, third tri mester January 21, 2025 8:45am Anemia in preg-unspec January 26, 2025 9:27 am Anxiety January 26, 2025 9:27am Delivery by section January 26 9:27am January 26, 2025 9:27am Supervision of high risk in fi rst trimester January 26, 2025 9:27am Uterine size-date discrepancy, third tri mester January 26, 2025 9:27am Anemia in preg-unspec February 09, 2025 9:0 3am Anxiety February 09, 2025 9:03a m Delivery by section February 09, 2 025 9:03am February 09, 2025 9:03a m Supervision of high risk in fi rst trimester February 09, 2025 9:03am Uterine size-date discrepancy, third tri mester February 09, 2025 9:03am Anemia in preg-unspec February 18, 2025 9:0 3am Anxiety February 18, 2025 9:03a m Delivery by section February 18, 2 025 9:03am February 18, 2025 9:03a m Supervision of high risk in fi rst trimester February 18, 2025 9:03am Uterine size-date discrepancy, third tri mester February 18, 2025 9:03am Anemia in preg-unspec February 27, 2025 8:2 2am Anxiety February 27, 2025 8:22a m Delivery by section February 27 8:22am February 27, 2025 8:22a m Supervision of high risk in fi rst trimester February 27, 2025 8:22am Uterine size-date discrepancy, third tri mester February 27, 2025 8:22am Reason for Referral Specialty Diagnoses / Procedures Referred By Contac t Referred To Contact Diagnoses History of anxiety Fear associated with healthcare Procedures MP[facility] CONSULT Zulma Saenz APRN.CNM [address] [place] [address] Referral ID Status Reason Start Date Expiration Date Visits Requested Visits Authorized [id number] Ref Not Required PCP Requested Referral 07/28/2024 07/28/2025 1 1 Specialty Diagnoses / Procedures Referred By Contac t Referred [facility] Contact [facility] [place] Diagnoses with uncertain dates, antepartum Procedures NUCHAL TRANSLUCENCY WHI US NUCHAL TRANSLUCENCY 1ST GESTATION Zulma Saenz APRN.CNM [address] [place] [address] [facility] [employer] [place] [address] Referral ID Status Reason Start Date Expiration Date Visits Requested Visits Authorized [id number] Authorized Auto-Generat ed Referral 07/28/2024 07/28/2025 1 1 Specialty Diagnoses / Procedures Referred By Contac t Referred To Contact [facility] [place] Diagnoses with uncertain dates, antepartum Procedures OBSTETRIC ULTRASOUND WHI US PREG UTERUS AFTER 1ST TRIMEST 1/ GESTATION Zulma Saenz APRN.CNM [address] [place] [address] [address] Referral ID Status Reason Start Date Expiration Date Visits Requested Visits Authorized [id number] Authorized Auto-Generat ed Referral 07/28/2024 07/28/2025 1 1 Summary Purpose Family History No Family History Records Found Relationship Condition Age at Onset Recorded Date/T candelario grandfather Malignant neoplasm 70 Cardiac disease Unknown grandfather Malignant neoplasm 60 Additional Source Comments Source Comments (unrecognize d section and content) In the event this informatio n is protected by the Federal Confidentiality of Alcohol and Drug Abuse Patient Records regulations: The Federal rules restrict any use of the information to criminally investigate or prosecute any alcohol or drug abuse patient.[facility] Center[facility] the event this information is protected by the Federal Confidentiality of Alcohol and Drug Abuse Patient Records regulations: The Federal rules restrict any use of the information to criminally investigate or prosecute any alcohol or drug abuse patient.[facility] CenterIn the event this information is protected by the Federal Confidentiality of Alcohol and Drug Abuse Patient Records regulations: The Federal rules restrict any use of the information to criminally investigate or prosecute any alcohol or drug abuse patient.[facility] CenterIn the event this information is protected by the Federal Confidentiality of Alcohol and Drug Abuse Patient Records regulations: The Federal rules restrict any use of the information to criminally investigate or prosecute any alcohol or drug abuse patient.[facility] CenterIn the event this information is protected by the Federal Confidentiality of Alcohol and Drug Abuse Patient Records regulations: The Federal rules restrict any use of the information to criminally investigate or prosecute any alcohol or drug abuse patient.[facility] CenterIn the event this information is protected by the Federal Confidentiality of Alcohol and Drug Abuse Patient Records regulations: The Federal rules restrict any use of the information to criminally investigate or prosecute any alcohol or drug abuse patient.[facility] CenterIn the event this information is protected by the Federal Confidentiality of Alcohol and Drug Abuse Patient Records regulations: The Federal rules restrict any use of the information to criminally investigate or prosecute any alcohol or drug abuse patient.[facility] CenterIn the event this information is protected by the Federal Confidentiality of Alcohol and Drug Abuse Patient Records regulations: The Federal rules restrict any use of the information to criminally investigate or prosecute any alcohol or drug abuse patient.[facility] CenterIn the event this information is protected by the Federal Confidentiality of Alcohol and Drug Abuse Patient Records regulations: The Federal rules restrict any use of the information to criminally investigate or prosecute any alcohol or drug abuse patient.[facility] CenterIn the event this information is protected by the Federal Confidentiality of Alcohol and Drug Abuse Patient Records regulations: The Federal rules restrict any use of the information to criminally investigate or prosecute any alcohol or drug abuse patient.[facility] CenterIn the event this information is protected by the Federal Confidentiality of Alcohol and Drug Abuse Patient Records regulations: The Federal rules restrict any use of the information to criminally investigate or prosecute any alcohol or drug abuse patient.[facility] CenterIn the event this information is protected by the Federal Confidentiality of Alcohol and Drug Abuse Patient Records regulations: The Federal rules restrict any use of the information to criminally investigate or prosecute any alcohol or drug abuse patient.[facility] CenterIn the event this information is protected by the Federal Confidentiality of Alcohol and Drug Abuse Patient Records regulations: The Federal rules restrict any use of the information to criminally investigate or prosecute any alcohol or drug abuse patient.[facility] CenterIn the event this information is protected by the Federal Confidentiality of Alcohol and Drug Abuse Patient Records regulations: The Federal rules restrict any use of the information to criminally investigate or prosecute any alcohol or drug abuse patient.[facility] CenterIn the event this information is protected by the Federal Confidentiality of Alcohol and Drug Abuse Patient Records regulations: The Federal rules restrict any use of the information to criminally investigate or prosecute any alcohol or drug abuse patient.[facility] CenterIn the event this information is protected by the Federal Confidentiality of Alcohol and Drug Abuse Patient Records regulations: The Federal rules restrict any use of the information to criminally investigate or prosecute any alcohol or drug abuse patient.[facility] CenterIn the event this information is protected by the Federal Confidentiality of Alcohol and Drug Abuse Patient Records regulations: The Federal rules restrict any use of the information to criminally investigate or prosecute any alcohol or drug abuse patient.[facility] CenterIn the event this information is protected by the Federal Confidentiality of Alcohol and Drug Abuse Patient Records regulations: The Federal rules restrict any use of the information to criminally investigate or prosecute any alcohol or drug abuse patient.[facility] CenterIn the event this information is protected by the Federal Confidentiality of Alcohol and Drug Abuse Patient Records regulations: The Federal rules restrict any use of the information to criminally investigate or prosecute any alcohol or drug abuse patient.[facility] CenterIn the event this information is protected by the Federal Confidentiality of Alcohol and Drug Abuse Patient Records regulations: The Federal rules restrict any use of the information to criminally investigate or prosecute any alcohol or drug abuse patient.[facility] CenterIn the event this information is protected by the Federal Confidentiality of Alcohol and Drug Abuse Patient Records regulations: The Federal rules restrict any use of the information to criminally investigate or prosecute any alcohol or drug abuse patient.[facility] CenterIn the event this information is protected by the Federal Confidentiality of Alcohol and Drug Abuse Patient Records regulations: The Federal rules restrict any use of the information to criminally investigate or prosecute any alcohol or drug abuse patient.[facility] CenterIn the event this information is protected by the Federal Confidentiality of Alcohol and Drug Abuse Patient Records regulations: The Federal rules restrict any use of the information to criminally investigate or prosecute any alcohol or drug abuse patient.[facility] CenterIn the event this information is protected by the Federal Confidentiality of Alcohol and Drug Abuse Patient Records regulations: The Federal rules restrict any use of the information to criminally investigate or prosecute any alcohol or drug abuse patient.[facility] CenterIn the event this information is protected by the Federal Confidentiality of Alcohol and Drug Abuse Patient Records regulations: The Federal rules restrict any use of the information to criminally investigate or prosecute any alcohol or drug abuse patient.[facility] CenterIn the event this information is protected by the Federal Confidentiality of Alcohol and Drug Abuse Patient Records regulations: The Federal rules restrict any use of the information to criminally investigate or prosecute any alcohol or drug abuse patient.[facility] CenterIn the event this information is protected by the Federal Confidentiality of Alcohol and Drug Abuse Patient Records regulations: The Federal rules restrict any use of the information to criminally investigate or prosecute any alcohol or drug abuse patient.[facility] CenterIn the event this information is protected by the Federal Confidentiality of Alcohol and Drug Abuse Patient Records regulations: The Federal rules restrict any use of the information to criminally investigate or prosecute any alcohol or drug abuse patient.[facility] CenterIn the event this information is protected by the Federal Confidentiality of Alcohol and Drug Abuse Patient Records regulations: The Federal rules restrict any use of the information to criminally investigate or prosecute any alcohol or drug abuse patient.[facility] CenterIn the event this information is protected by the Federal Confidentiality of Alcohol and Drug Abuse Patient Records regulations: The Federal rules restrict any use of the information to criminally investigate or prosecute any alcohol or drug abuse patient.[facility] CenterIn the event this information is protected by the Federal Confidentiality of Alcohol and Drug Abuse Patient Records regulations: The Federal rules restrict any use of the information to criminally investigate or prosecute any alcohol or drug abuse patient.[facility] CenterIn the event this information is protected by the Federal Confidentiality of Alcohol and Drug Abuse Patient Records regulations: The Federal rules restrict any use of the information to criminally investigate or prosecute any alcohol or drug abuse patient.[facility] CenterIn the event this information is protected by the Federal Confidentiality of Alcohol and Drug Abuse Patient Records regulations: The Federal rules restrict any use of the information to criminally investigate or prosecute any alcohol or drug abuse patient.[facility] Care Teams (unrecognized sec tion and content) Applications System Analyst Relationship Specialty Start Date End Date Dinah Lovett MD [address] [place] [address] PCP - General Family Practice 09/22/21 Rebel Slade III, MD Home Care Physician Family Practice 04/08/20 Earle Christensen DO [address] [place] [address] Consulting Infectious Diseases 04/08/20 Adelina Martin MD [address] [place] [address] Referring Neurosurgery 04/08/20 Applications System Analyst Relationship Specialty Start Date End Date Dinah Lovett MD [address] [place] [address] PCP - General Family Practice 09/22/21 Rebel Slade III, MD Home Care Physician Family Practice 04/08/20 Earle Christensen DO [address] [place] [address] Consulting Infectious Diseases 04/08/20 Adelina Martin MD [address] [place] [address] Referring Neurosurgery 04/08/20 Applications System Analyst Relationship Specialty Start Date End Date Dinah Lovett MD [address] [place] [address] PCP - General Family Practice 09/22/21 Rebel Slade III, MD [place] Care Physician Family Practice 04/08/20 Earle Christensen DO [address] [place] [address] Consulting Infectious Diseases 04/08/20 Adelina Martin MD [address] [place] [address] Referring Neurosurgery 04/08/20 Applications System Analyst Relationship Specialty Start Date End Date Dinah Lovett MD [address] [place] [address] PCP - General Family Practice 09/22/21 Rebel Slade III, MD Home Care Physician Family Practice 04/08/20 Earle Christensen DO [address] [place] [address] Consulting Infectious Diseases 04/08/20 Adelina Martin MD [address] [place] [address] Referring Neurosurgery 04/08/20 Applications System Analyst Relationship Specialty Start Date End Date Dinah Lovett MD [address] [place], [place] [address] PCP - General Family Practice 09/22/21 Rebel Slade III, MD Home Care Physician Family Practice 04/08/20 Earle Christensen DO [address] [place] [address] Consulting Infectious Diseases 04/08/20 Adelina Martin MD [address] [place] [address] Referring Neurosurgery 04/08/20 Applications System Analyst Relationship Specialty Start Date End Date Dinah Lovett MD [address] [place] [address] PCP - General Family Practice 09/22/21 Rebel Slade III, MD Home Care Physician Family Practice 04/08/20 Earle Christensen DO [address] [place] [address] Consulting Infectious Diseases 04/08/20 Adelina Martin MD [address] [place] [address] Referring Neurosurgery 04/08/20 Applications System Analyst Relationship Specialty Start Date End Date Dinah Lovett MD [address] [place] [address] PCP - General Family Practice 09/22/21 Rebel Slade III, MD Home Care Physician Family Practice 04/08/20 Earle Christensen DO [address] [place] [address] Consulting Infectious Diseases 04/08/20 Adelina Martin MD [address] [place] [address] Referring Neurosurgery 04/08/20 Applications System Analyst Relationship Specialty Start Date End Date Dinah Lovett MD [address] [place], [place] [address]241 PCP - General Family Practice 09/22/21 Reebl Slade III, MD Home Care Physician Family Practice 04/08/20 Earle Christensen DO [address] [place] [address] Consulting Infectious Diseases 04/08/20 Adelina Martin MD [address] [place] [address] Referring Neurosurgery 04/08/20 Applications System Analyst Relationship Specialty Start Date End Date Dinah Lovett MD [address] [place], [place] [id number] PCP - General Family Practice 09/22/21 Rebel Slade III, MD Home Care Physician Family Practice 04/08/20 Earle Christensen DO [address] [place] [address] Consulting Infectious Diseases 04/08/20 Adelina Martin MD [address] [place] [address] Referring Neurosurgery 04/08/20 Applications System Analyst Relationship Specialty Start Date End Date Dinah Lovett MD [address] [place], [place] [id number] PCP - General Family Practice 09/22/21 Rebel Slade III, MD Home Care Physician Family Practice 04/08/20 Earle Christensen DO [address] [place] [address] Consulting Infectious Diseases 04/08/20 Adelina Martin MD [address] [place] [address] Referring Neurosurgery 04/08/20 Applications System Analyst Relationship Specialty Start Date End Date Dinah Lovett MD [address] [place] [address] PCP - General Family Practice 09/22/21 Rebel Slade III, MD Home Care Physician Family Practice 04/08/20 Earle Christensen DO [address] [place] [address] Consulting Infectious Diseases 04/08/20 Adelina Martin MD [address] [place] [address] Referring Neurosurgery 04/08/20 Applications System Analyst Relationship Specialty Start Date End Date Dinah Lovett MD [address] [place] [id number] PCP - General Family Practice 09/22/21 Rebel Slade III, MD Home Care Physician Family Practice 04/08/20 Earle Christensen DO [address] [place] [address] Consulting Infectious Diseases 04/08/20 Adelina Martin MD [address] [place] [address] Referring Neurosurgery 04/08/20 Applications System Analyst Relationship Specialty Start Date End Date Dinah Lovett MD [address] [place], [place] [id number] PCP - General Family Medicine 09/22/21 Rebel Slade III, MD Home Care Provider Family Medicine 04/08/20 Earle Christensen DO [address] [place] [address] Consulting Infectious Diseases 04/08/20 Adelina Martin MD [address] [place] [address] Referring Neurosurgery 04/08/20 Applications System Analyst Relationship Specialty Start Date End Date Dinah Lovett MD [address] [place] [address] PCP - General Family Medicine 09/22/21 Rebel Slade III, MD Home Care Provider Family Medicine 04/08/20 Earle Christensen DO [address] [place] [address] Consulting Infectious Diseases 04/08/20 Adelina Martin MD [address] [place] [address] Referring Neurosurgery 04/08/20 Applications System Analyst Relationship Specialty Start Date End Date Dinah Lovett MD [address] [place] [address] PCP - General Family Medicine 09/22/21 Rebel Slade III, MD Home Care Provider Family Medicine 04/08/20 Earle Christensen DO [address] [place] [address] Consulting Infectious Diseases 04/08/20 Adelina Martin MD [address] [place] [address] Referring Neurosurgery 04/08/20 Applications System Analyst Relationship Specialty Start Date End Date Dinah Lovett MD [address] [place] [address] PCP - General Family Medicine 09/22/21 Rbeel Slade III, MD Home Care Provider Family Medicine 04/08/20 Earle Christensen DO [address] [place] [address] Consulting Infectious Diseases 04/08/20 Adelina Martin MD [address] [place] [address] Referring Neurosurgery 04/08/20 Applications System Analyst Relationship Specialty Start Date End Date Dinah Lovett MD [address] [place], [place] [id number] PCP - General Family Medicine 09/22/21 Rebel Slade III, MD Home Care Provider Family Medicine 04/08/20 Earle Christensen DO [address] [place] [address] Consulting Infectious Diseases 04/08/20 Adelina Martin MD [address] [place] [address] Referring Neurosurgery 04/08/20 Applications System Analyst Relationship Specialty Start Date End Date Dinah Lovett MD [address] [place], [place] [id number] PCP - General Family Medicine 09/22/21 Rebel Slade III, MD Home Care Provider Family Medicine 04/08/20 Earle Christensen DO [address] [place] [address] Consulting Infectious Diseases 04/08/20 Adelina Martin MD [address] [place] [address] Referring Neurosurgery 04/08/20 Applications System Analyst Relationship Specialty Start Date End Date Dinah Lovett MD [address] [place], [place] [id number] PCP - General Family Medicine 09/22/21 Rebel Slade III, MD Home Care Provider Family Medicine 04/08/20 Earle Christensen DO [address] [place] [address] Consulting Infectious Diseases 04/08/20 Adelina Martin MD [address] [place], [place] [id number] Referring Neurosurgery 04/08/20 Applications System Analyst Relationship Specialty Start Date End Date Dinah Lovett MD [address] [place] [address] PCP - General Family Medicine 09/22/21 Rebel Slade III, MD Home Care Provider Family Medicine 04/08/20 Earle Christensen DO [address] [place] [address] Consulting Infectious Diseases 04/08/20 Adelina Martin MD [address] [place] [address] Referring Neurosurgery 04/08/20 Applications System Analyst Relationship Specialty Start Date End Date Dinah Lovett MD [address] [place] [address] PCP - General Family Medicine 09/22/21 Rebel Slade III, MD Home Care Provider Family Medicine 04/08/20 Earle Christensen DO [address] [place], [place] [id number] Consulting Infectious Diseases 04/08/20 Adelina Martin MD [address] [place] [address] Referring Neurosurgery 04/08/20 Applications System Analyst Relationship Specialty Start Date End Date Dinah Lovett MD [address] [place], [place] [address]2441 PCP - General Family Medicine 09/22/21 Rebel Slade III, MD Home Care Provider Family Medicine 04/08/20 Earle Christensen DO [address] [place] [address] Consulting Infectious Diseases 04/08/20 Adelina Martin MD [address] [place] [address] Referring Neurosurgery 04/08/20 Applications System Analyst Relationship Specialty Start Date End Date Dinah Lovett MD [address] [place] [address] PCP - General Family Medicine 09/22/21 Rebel Slade III, MD Home Care Provider Family Medicine 04/08/20 Earle Christensen DO [address] [place] [address] Consulting Infectious Diseases 04/08/20 Adelina Martin MD [address] [place] [address] Referring Neurosurgery 04/08/20 Applications System Analyst Relationship Specialty Start Date End Date Dinah Lovett MD [address] [place], [place] [address]251 PCP - General Family Medicine 09/22/21 Rebel Slade III, MD Home Care Provider Family Medicine 04/08/20 Earle Christensen DO [address] [place] [place], [place] [id number] Consulting Infectious Diseases 04/08/20 Adelina Martin MD [address] [place] [address] Referring Neurosurgery 04/08/20 Applications System Analyst Relationship Specialty Start Date End Date Dinah Lovett MD [address] [place], [place] [address]671 PCP - General Family Medicine 09/22/21 Rebel Slade III, MD Home Care Provider [facility] Medicine 04/08/20 Earle Christensen DO [address] [place], [place] [id number] Consulting Infectious Diseases 04/08/20 Adelina Martin MD [address] [place] [address] Referring Neurosurgery 04/08/20 Team Status: Active Member Role Status Dates Dr. Dinah Lovett MD Primary Care Provider Active Team Status: Inactive Member Role Status Dates Dr. Dinah Lovett MD Primary Care Provider Active Start: August 26, 2024 End: August 26, 2024 Dr. Dinah Lovett MD Referring Provider Active Start: August 26, 2024 End: August 26, 2024 Dr. Bethany Fry DO Attending Provider Activ e Start: August 26, 2024 End: August 26, 2024 Team Status: Inactive Member Role Status Dates Dr. Dinah Lovett MD Primary Care Provider Active Start: August 26, 2024 End: August 26, 2024 Dr. Bethany Fry DO Attending Provider Activ e Start: August 26, 2024 End: August 26, 2024 Dr. Bethany Fry DO Referring Provider Activ e Start: August 26, 2024 End: August 26, 2024 Team Status: Inactive Member Role Status Dates Dr. Dinah Lovett MD Primary Care Provider Active Start: September 29, 2024 End: September 29, 2024 Dr. Dinah Lovett MD Referring Provider Active Start: September 29, 2024 End: September 29, 2024 Nhi Rose CNM Attending Provider Active S tart: September 29, 2024 End: September 29, 2024 Team Status: Inactive Member Role Status Dates Dr. Dinah Lovett MD Primary Care Provider Active Start: October 29, 2024 End: October 29, 2024 Dr. Dinah Lovett MD Referring Provider Active Start: October 29, 2024 End: October 29, 2024 Dr. Rema Fry MD Attending Provider Active Start: October 29, 2024 End: October 29, 2024 Team Status: Inactive Member Role Status Dates Dr. Dinah Lovett MD Primary Care Provider Active Start: November 25, 2024 End: November 25, 2024 Dr. Dinah Lovett MD Referring Provider Active Start: November 25, 2024 End: November 25, 2024 Dr. Bethany Fry DO Attending Provider Activ e Start: November 25, 2024 End: November 25, 2024 Team Status: Inactive Member Role Status Dates Dr. Dinah Lovett MD Primary Care Provider Active Start: December 08, 2024 End: December 08, 2024 Dr. Bethany Fry DO Attending Provider Activ e Start: December 08, 2024 End: December 08, 2024 Dr. Bethany Fry DO Referring Provider Activ e Start: December 08, 2024 End: December 08, 2024 Team Status: Inactive Member Role Status Dates Dr. Dinah Lovett MD Referring Provider Active Start: December 24, 2024 End: December 24, 2024 Karen Garcia [employer] DIRECTOR, [employer] DIRECTOR-C Attending Provider Active Start: December 24, 2024 End: December 24, 2024 Team Status: Inactive Member Role Status Dates Dr. Dinah Lovett MD Referring Provider Active Start: January 08, 2025 End: January 08, 2025 Dr. Bethany Fry DO Attending Provider Activ e Start: January 08, 2025 End: January 08, 2025 Team Status: Inactive Member Role Status Dates Dr. Dinah Lovett MD Referring Provider Active Start: January 21, 2025 End: January 21, 2025 Dr. Rema Fry MD Attending Provider Active Start: January 21, 2025 End: January 21, 2025 Team Status: Inactive Member Role Status Dates Dr. Dinah Lovett MD Referring Provider Active Start: January 26, 2025 End: January 26, 2025 Dr. Bethany Fry DO Attending Provider Activ e Start: January 26, 2025 End: January 26, 2025 Team Status: Inactive Member Role Status Dates Dr. Dinah Lovett MD Referring Provider Active Start: February 09, 2025 End: February 09, 2025 Dr. Bethany Fry DO Attending Provider Activ e Start: February 09, 2025 End: February 09, 2025 Team Status: Inactive Member Role Status Dates Dr. Bethany Fry DO Attending Provider Activ e Start: February 09, 2025 End: February 09, 2025 Dr. Bethany Fry DO Referring Provider Activ e Start: February 09, 2025 End: February 09, 2025 Team Status: Inactive Member Role Status Dates Dr. Dinah Lovett MD Referring Provider Active Start: February 18, 2025 End: February 18, 2025 Dr. Bethany Fry DO Attending Provider Activ e Start: February 18, 2025 End: February 18, 2025 Team Status: Inactive Member Role Status Dates Edna Garcia CNM Attending Provider Active Start: February 27, 2025 End: February 27, 2025 Reason for Visit (unrecogniz ed section and content) Reason Onset Date Comments Care 01/26/2022 Reason Onset Date Comments Care 02/09/2022 Reason Onset Date Comments Care 02/23/2022 Reason Onset Date Comments Care 03/02/2022 Reason Onset Date Comments Care 03/09/2022 Reason Onset Date Comments Care 03/16/2022 Reason Onset Date Comments Care 03/28/2022 Reason Comments Patient Question Reason Comments US Specialty Diagnoses / Procedures Referred By Jose Eduardo acevedo Referred To Contact [facility] Diagnoses Encounter for supervision of other normal in third trimester 40 weeks gestation of Procedures OBSTETRIC ULTRASOUND WHI US PREG UTERUS AFTER 1ST TRIMEST GESTATION Kristi Mcqueen MD [address] [place] [address] [facility] [address] [address] Referral ID Status Reason Start Date Expiration Date V isits Requested Visits Authorized [id number] Closed Auto-Generate d Referral 03/29/2022 03/29/2023 1 1 Reason Comments Appointment Orders Reason Comments Care Reason Comments tick bite Tick bite on bottom- noticed it today Reason Comments Patient Question Reason Onset Date Comments Consult 03/12/2023 Reason Comments Patient Update Reason Comments DATABASE REQUEST Reason Comments Follow Up Reason Comments Question (OB Question) Reason Comments Appointment Reason Comments Initial OB Visit Goals (unrecognized section and content) Goals may be documented in a n alternate sectionGoals may be documented in an alternate sectionGoals may be documented in an alternate sectionGoals may be documented in an alternate sectionGoals may be documented in an alternate section INFORMATION SOURCE (unrecogn ized section and content) DATE CREATED AUTHOR 08/03/2024 [facility] DATE CREATED AUTHOR AUTHOR'S ORGANIZ ATION 01/29/2025 [facility] DATE CREATED AUTHOR AUTHOR'S ORGANIZ ATION 03/01/2025 [facility] FOR RECORDS PERTAINING TO PATIENTS WHO ARE OR HAVE BEEN ENROLLED IN A CHEMICAL DEPENDENCY/SUBSTANCEABUSE PROGRAM, SOME INFORMATION MAY BE OMITTED. This clinical summary was aggregated from multiple sources. Caution should be exercised in using it in the provision of clinical care. This summary normalizes information from multiple sources, and as a consequence, information in this document may materially change the coding, format and clinical context of patient data. In addition, data may be omitted in some cases. CLINICAL DECISIONS SHOULD BE BASED ON THE PRIMARY CLINICAL RECORDS. [employer] [facility]. provides no warranty or guarantee of the accuracy or completeness of information in this document.
[2025-03-02] MEDS: Lactated Ringers 1,000 ML 999 ML IV (05:45)
[2025-03-02 06:06] LABS: Absolute Lymphocyte Count 1.86 X10^3/uL (0.83-4.51); Absolute Neutrophil Count 6.7 X10^3/uL (2.0-7.7); Basophil# 0.04 X10^3/uL; Basophil% 0.4 % (0-1); Eosinophil# 0.02 X10^3/uL; Eosinophils% 0.2 % (0-5); Hematocrit 34.3 % (37-47); Hemoglobin 11.9 g/dL (12.0-15.0); Lymphocyte # 1.86 X10^3/ul (0.83-4.51); Lymphocyte % 20.5 % (19-41); Mean Corp Hgb Conc 34.7 g/dL (32-36); Mean Corpuscular Hgb 31.1 pg (27.0-32.0); Mean Corpuscular Volume 89.6 fL (81-99); Mean Platelet Vol. 9.6 fl (6.2-12.0); Monocyte% 4.4 % (0-10); NRBC Flagged by Analyzer 0 % (0-5); Neutrophil # 6.71 X10^3/uL (2.7-7.7); Neutrophil % 73.8 % (47-70); Platelet Count 251 K/mm3 (150-450); RBC Distribution Width CV 13.2 % (11.6-14.6); RBC Distribution Width SD 43.3 fl (35.1-43.9); Red Blood Count 3.83 M/mm3 (4.2-5.4); White Blood Count 9.1 K/mm3 (4.4-11.0)
[2025-03-02] MEDS: Acetaminophen 500 MG Tablet 1000 MG PO ×4 (06:13→23:53)
[2025-03-02] MEDS: Lactated Ringers 1,000 ML 150 ML IV (06:46)
[2025-03-02 07:05] LABS: Syphilis Antibodies Nonreactive (Nonreactive)
[2025-03-02] MEDS: Sodium Citrate/Citric Acid 30 ML UDC PO (07:10)
[2025-03-02] MEDS: Clindamycin 900 MG/50 ML BAG 75 MG IV (07:15)
[2025-03-02] MEDS: Gentamicin IV 260 MG in Dextrose 5%-Water (50mL Bag) 50 ML 100 MG IV (07:15)
--- NOTE | 2025-03-02 07:15 | HP.PCM.OB_ITS ---
HPI - General General Date of Admission: 03/02/25 HPI Narrative RAGHAV NGUYEN, is a 29 y/o @ 39 weeks who presents to L&D for a repeat section and BTL Maternal Data Information CIARA Calculator Estimated Delivery Date Method Current WG Current Estimate 03/06/25 LMP (Certain) 39w 3d PFSH PFS Medical History H/O: pituitary tumor Meconium in amniotic fluid affecting management of mother intolerance to labor, delivered, current hospitalization Postoperative pain Lactating mother Category II heart rate tracing during maternal care in third trimester Encounter for elective induction of labor 40 weeks gestation of Pituitary adenoma Home Medications ?Medication ?Instructions ?Recorded ?Last Taken ?Type vit with calcium-iron 1 tab PO DAILY pregnanc y 03/31/22 03/01/25 History fum-folic acid 60 mg iron-1 mg tablet ferrous sulfate 325 mg (65 mg 325 mg PO DAILY anemia 0 03/02/25 03/01/25 History iron) tablet (Iron (ferrous sulfate)) Allergy/AdvReac Type Severity Reaction Status Date / Time amoxicillin Allergy Hives Verified 03/02/25 05:53 Penicillins Allergy Hives Verified 03/02/25 05:53 Family History Grandfather Cancer, Onset Age: 70 Paternal Leukemia Heart disease Paternal Grandfather Cancer, Onset Age: 60 Maternal Prostate, lung cancer Surgical History H/O brain surgery H/O section Social History adopted: No household members: spouse and children number of children: 1 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 history of recent travel: No sexually active: Yes Smoking Status: Never smoker alcohol intake: current alcohol intake frequency: holidays/special occasions only details: Not while substance use type: does not use well-balanced diet: daily or most days caffeine: Yes (occasional) Type: coffee Number of servings: 1 and tea Number of servings: 1 eating out: 1-3 times/week during the past year weight has: remained stable what type of physical activity do you participate in: walking frequency: 1-2 times per week duration: 15-30 minutes/day andreina/adventism: Amish seatbelt use: always do you feel safe at home: Yes additional social history: Juanjose WARD History 2 Elective abortions Hx Para 1 Spontaneous abortions Hx # Term Pregnancies Ectopic pregnancies Hx # Pregnancies Multiple births # of living children 1 Past Pregnancies Del. Date Name GA/Weeks Outcome Route Bth Weight Gen [facility] Domonique 40 live - full term 7#3oz Female e pidural [facility] Karely Rico Delivery Date: 04/01/22 Last Updated by: Denisse Wang c section due to distress Visit Details Expected Delivery Route/Plan for repeat section Plans Covid status: [] Flu vaccine: [] Tdap vaccine: given Rhogam: [] LARC form signed: yes Problem list reviewed and updated with the most current plan of care details and appropriate orders placed. Relevant counseling for the gestational age provided. Continue routine care and follow up unless otherwise noted in visit notes/problem list details OB Flowsheet Initial Weight: 129 lb Date -?-?-?-?-?-?-?-?-?-?-?-?- EGA Weight BP Urine Prot -?-?-?-?-?-?-?-?-?-?-?-?- Glucose FHR FuHt Pres Dilation -?-?-?-?-?-?-?-?-?-?-?-?- Effaced St Visit Note 08/26/24 -?-?-?-?-?-?-?-?-?-?-?-?- 12w 4d 129 lb 6 oz (+6 oz) 134/88 -?-?-?-?-?-?-?-?-?-?-?-?- 168 -?-?-?-?-?-?-?-?-?-?-?-?- JV- CRL consiste nt with LMP and earlier us. She [facility] with [facility]. cs for failure to progress and intolerance to labor. Declines NIPT. had new ob labs here and gc/ct at [facility]. will need records. 09/29/24 -?-?-?-?--?-?-?-?-?-?-?-?- 17w 3d 133 lb (+4 lb) 134/79 113/76 Negative -?-?-?-?-?-?-?-?-?-?-?-?- Negative 145 -?-?-?-?-?-?-?-?-?-?-?-?- KW- no vb/sandy sheehan. US scheduled 10/29/24 -?-?-?-?-?-?-?-?-?-?-?-?- 21w 5d 136 lb 2 oz (+7 lb 2 oz) 122/77 Negative -?-?-?--?-?-?-?-?-?-?-?-?- Negative 145 22 -?-?-?-?-?-?-?-?-?-?-?-?- SM- no vb lof go od fm no regular ctx 11/25/24 -?-?-?-?-?-?-?-?-?-?-?-?- 25w 4d 144 lb (+15 lb) 126/86 Negative -?-?-?-?-?-?-?-?-?-?-?-?- Negative 140 25 -?-?-?-?-?-?-?-?-?-?-?-?- JV- having a champ Salazar! wants her cs on sundayMarch 03 with a tubal. 12/24/24 -?-?-?-?-?-?-?-?-?-?-?-?- 29w 5d 147 lb (+18 lb) 114/72 Negative -?-?-?-?-?-?-?--?-?-?-?-?- Negative 132 29 -?-?-?-?-?-?-?-?-?-?-?-?- MH-No VB, LOF. G ood FM. Started Fe. Larc, tdap. 01/08/25 -?-?-?-?-?-?-?-?-?-?-?-?- 31w 6d 150 lb 4 oz (+21 lb 4 oz) 123/82 Negative -?-?-?-?-?-?-?-?-?-?-?-?- Negative 130 30 -?-?-?-?-?-?-?-?-?-?-?-?- JV- planning to move her cs to 03/02. no complaints today other than baby kicking in ribs. 01/21/25 -?-?-?-?-?-?-?-?-?-?-?-?- 33w 5d 151 lb 6 oz (+22 lb 6 oz) 133/75 Trace -?-?-?-?-?-?-?-?-?-?-?-?- Negative 140 32 -?-?-?-?-?-?-?-?-?-?-?-?- SM- no vb no ctx lof good fm SM- no vb no ctx lof good fm growth US ordered 01/26/25 -?-?-?-?-?-?-?-?-?-?-?-?- 34w 3d 154 lb 8 oz (+25 lb 8 oz) 124/81 Negative -?-?-?-?-?-?-?-?-?-?-?-?- Negative 133 34 -?-?-?-?-?-?-?-?-?-?-?-?- JV- growth scan today shows AC 64th% and DREA 11.4. overall growth is also normal. formal report pending. repeating bp. 02/09/25 -?-?-?-?-?-?-?-?-?-?-?-?- 36w 3d 155 lb 8 oz (+26 lb 8 oz) 122/75 Negative -?-?-?-?-?-?-?-?-?-?-?-?- Negative 122 26 Cephalic -?-?-?-?-?-?-?-?-?-?-?-?- JV- No complaint s today. gbs collected. questions about section answered. 02/18/25 -?-?-?-?-?-?-?-?-?-?-?-?- 37w 5d 156 lb 8 oz (+27 lb 8 oz) 132/85 Negative -?-?-?-?-?-?-?-?-?-?-?-?- Negative 129 37 Cephalic -?-?-?-?-?-?-?-?-?-?-?-?- JV- no lof, vagi nal bleeding, or dec fm. consent signed today for section. 02/27/25 -?-?-?-?-?-?-?-?-?-?-?-?- 39w 0d 156 lb 2 oz (+27 lb 2 oz) 133/85 Negative -?-?-?-?-?-?-?-?-?-?-?-?- Negative 138 37 Cephalic -?-?-?-?-?-?-?-?-?-?-?-?- LC- no vb/ctx/lo f. good fm. has c/s on sunday ROS Constitutional Constitutional: Denies change in weight, fatigue, fever(s), headache(s), poor appetite or weakness Eyes Eyes: Denies blurry vision, change in vision, seeing flashes or spots in vision ENT HEENT: Denies dizziness, headache(s), loss taste/smell or sore throat Cardiovascular Cardiovascular: Denies chest pain, dizziness, dyspnea, irregular heart rhythm, leg edema, palpitations, rapid heart rate or vomiting Respiratory/Chest Respiratory/Chest: Denies chest tightness, cough, dyspnea or breast pain Gastrointestinal Gastrointestinal: Denies abdominal pain, anorexia, constipation, cramping, diarrhea, hemorrhoids, vomiting or weight changes Genitourinary Genitourinary: Denies dysuria, flank pain, genital lesions, genital pain, urinary frequency or urinary urgency Musculoskeletal Musculoskeletal: Denies back pain, difficulty walking, joint pain, limited range of motion, muscle cramps or numbness Integumentary Integumentary: Denies lesions or unusual bruising Neurologic Neurologic: Denies abnormal movements, abnormal speech, dizziness, numbness, seizure-like activity or syncope Psychiatric Psychiatric: Denies anxiety, behavioral changes, change in appetite, change in libido, cognitive impairment, confusion, depression, difficulty concentrating, hallucinations or suicidal thoughts Endocrine Endocrinology: Denies excessive sweating, polydipsia or polyuria Hematologic/Lymphatic Hematologic/Lymphatic: Denies easy bleeding, easy bruising or lymphadenopathy Allergic/Immunologic Allergic/Immunologic: Denies itchy eyes, lip swelling, seasonal rhinorrhea, rhinitis, throat swelling, tongue swelling, eczemia, wheezing or asthma Vital Signs Vital Signs Vital Signs: 03/02/25 06:15 Temperature 97.0 F L Temperature Source Temporal Pulse Rate 96 Respiratory Rate 18 Blood Pressure 120/87 H Blood Pressure Mean 98 Blood Pressure Source Monitor Blood Pressure Position Semi-Fowlers Blood Pressure Location Right Arm Pulse Ox 99 Oxygen Delivery Method Room Air Weight Weight: 154 lb 5.177 oz Body Mass Index (BMI) 27.3 Physical Exam Const alert, oriented x3, no apparent distress and healthy appearing General Appearance: cooperative; Negative for anxious HEENT normocephalic Face and Sinus: normal facial exam Eyes EOMs intact bilaterally and no scleral icterus General Eye: normal appearance of both eyes Neck full ROM and supple Lymph Lymphatic: no lymphadenopathy noted Chest Chest: abnormal inspection of the chest Resp normal respiratory effort Effort and Inspection: able to speak in complete sentences Cardio regular rate GI soft to palpation and non-tender Inspection: gravid Palpation: soft; Negative for tender Back/Spine no CVA tenderness Extremity normal to inspection, full ROM and no clubbing, cyanosis or edema General Extremity: Negative for calf tenderness or edema Skin Lesions: no lesions Rashes: no rashes Psych mental status grossly normal Labs Labs Labs: Blood Type A POSITIVE Antibody Screen NEGATIVE Hct 34.3 % (37-47) L Hgb 11.9 g/dL (12.0-15.0) L Pap Smear Negative Syphilis Total Ab Nonreactive (Nonreactive) Rubella IgG Antibody Reactive (Nonreactive) Hep Bs Antigen Non-Reactive (Nonreactive) Hepatitis C Antibody Non-Reactive (Nonreactive) HIV 1&2 Antibody Nonreactive (Nonreactive) Glucose 1 Hr 50 gm 118 mg/dL (70-140) Assessment & Plan (1) Anemia in preg-unspec: QUALIFIERS: Trimester: third trimester Qualified Code(s): O99.013 - Anemia complicating , third trimester COMMENT: add FE (2) Supervision of high risk in first trimester: COMMENT: PRR CIARA 03/06/25 girl Marie Youssef : Rico (3) Anxiety: (4) : QUALIFIERS: Weeks of gestation: 39 weeks Qualified Code(s): Z3A.39 - 39 weeks gestation of COMMENT: Declines NIPT/Carrier. afp declined. nl anatomy (5) Delivery by section: COMMENT: d/t intolerance, meconium in amniotic fluid RLTCS BS scheduled for 03/02 @ 7:15 with SUZY
--- NOTE | 2025-03-02 07:25 | DCINST_ITS ---
Discharge Instructions Diet Discharge Diet: No restrictions DC O2, CPAP, BIPAP needs Home O2 Discharge instructions: No Dressing / Incision Discharge Activity: May Not Drive (for 2 weeks or while taking narcotic pain medications.), May Shower and May Take a Tub Bath (in 7 days.) May resume sexual activity in: 4-6 weeks Weight Bearing Status: Full weight bearing Lifting Restrictions: 20 pounds Dressing / Incision Call your doctor if your incision/area has: Continuous Slow Oozing, Sudden Increased Bleeding, Increased Pain/ Swelling, Increased Redness and Foul Smelling Discharge Call your doctor if you observe: Fever of 101 or Higher and Using more than 1 pad per hour Suture Line Care: Avoid Pulling/Pushing and Avoid Pinching/Bending Cleanse incision/area with: Soap & Water and Keep Dressing Clean & Dry Follow Up Care Please Follow Up With: Bethany Fry DO When: Call [phone] to make an appointment for an incision check in 1-2 weeks. Test Results: Test results from this visit will be discussed in further detail at your follow- up appointment, if applicable. Discharge Plan Admission Admit Date/Time: 03/02/25 05:05 Attending Provider: Bethany Fry Discharge Orders/Prescriptions Prescriptions: No Action vit-iron fum-folic ac 60 mg iron-1 mg Tablet 1 tab PO DAILY ferrous sulfate [Iron (ferrous sulfate)] 325 mg (65 mg iron) tablet 325 mg PO DAILY
--- NOTE | 2025-03-02 08:03 | EX.PCM.OBRPT ---
Assessment & Plan (1) Uterine size-date discrepancy, third trimester: COMMENT: growth us ordered (2) Anemia in preg-unspec: QUALIFIERS: Trimester: third trimester Qualified Code(s): O99.013 - Anemia complicating , third trimester COMMENT: add FE (3) Supervision of high risk in first trimester: COMMENT: PRR CIARA 03/06/25 girl Marie Youssef : Rico (4) Anxiety: (5) : QUALIFIERS: Weeks of gestation: 39 weeks Qualified Code(s): Z3A.39 - 39 weeks gestation of COMMENT: Declines NIPT/Carrier. afp declined. nl anatomy (6) Delivery by section: COMMENT: d/t intolerance, meconium in amniotic fluid RLTCS BS scheduled for 03/02 @ 7:15 with JKalpana Maternal Data Information CIARA Calculator Estimated Delivery Date Method Current WG Current Estimate 03/06/25 LMP (Certain) 39w 3d Final CIARA: 03/06/25 Gestational age: 39 weeks 3 days Operative Report (OB) Details Procedure Type: bilateral salpingectomy Date of Procedure: 03/02/25 Procedure Start Time: 07:36 Time of Delivery: 07:39 Pre-Operative Diagnosis: Repeat Elective and Desires elective sterilization Post-Operative Diagnosis: Same as Pre-operative diagnosis Classification: Scheduled Type of Anesthesia: Spinal Antibiotic Given: Clindamycin 600mg IV x1 and Gentamicin 1.5mg/kg IV x1 Drain: Khalil to straight drain Estimated Blood Loss: 500cc Findings Description of surgery: The patient is a 29 y/o @ 39 weeks 3 days presented for repeat and bilateral salpingectomy. Spinal anesthesia was placed without difficulty. Khalil catheter was placed. The patient was placed in the dorsal supine position with leftward tilt. Patient was prepped and draped in the normal sterile fashion. Pfannenstiel skin incision was made with the scalpel and carried through to the underlying layer of fascia with the scalpel. Fascia was nicked in the midline and the incision extended laterally. The rectus bellies were dissected off superiorly and inferiorly with out complication both sharply and bluntly. The peritoneum was entered digitally. The incision was stretched and a low transverse uterine incision was made with the scalpel. The infant's head was delivered atraumatically followed by the anterior and posterior shoulders without complication the rest of the delivered. The cord was clamped and cut and the was handed off to awaiting nurse. The placenta was delivered spontaneously immediately following and was noted to be intact and have a three-vessel cord. The uterus was exteriorized cleared of all clots and debris, and the incision was closed in a double layer closure using #1 Vicryl and #1 Monocryl. The ovaries and fallopian tubes were noted to be within normal limits. The right fallopian tube was elevated and the underlying mesosalpinx was cauterized and cut using the ligasure device then passed off for pathology analysis. excellent hemostasis was noted and the vessels to the ovary were not compromised. The same procedure was performed on the left side. The uterus was returned to the maternal abdomen and gutters were cleared of all clots and debris. The peritoneum was closed with 3-0 Monocryl in a running fashion. Fascia was closed with 0 PDS in a running fashion. Subcutaneous tissue was copiously irrigated and the skin was closed with 3-0 Monocryl in a subcuticular fashion. Mepilex dressing was applied without complication. Patient was taken to recovery in stable condition. Surgical findings: baby girl Marie Apgars 9/10 6 lbs 15 oz Presentation: Vertex Amniotic Membrane Rupture Type: Spontaneous Amniotic Fluid Description: Clear Placental Delivery Description: Spontaneous Placenta Disposition: [facility] Specimen collected: Yes Description of specimen(s) removed: fallopian tubes Cord Vessel Description: 3 Vessels Cord Entanglement: Around neck x 1, loose Nuchal Cord Compression: Without compression A gender: Female (1 minute): 9 (5 minute): 10 Delayed Cord Clamping: Yes Pump Installation And Servicer alumni relations manager: Yes Hydrologist: Ginny Clemente Tasks completed by blood and plasma laboratory assistant: Closing and Retracting Additional senior executive assistant?: No Complications Complications: No Admit VTE Documentation VTE Present on Admission: No VTE Mechan Device Prophylaxis: SCD's VTE Pharm Prophylaxis Ordered: No Multi Select Codes Urinary/Genital Urinary/Genital CPT Codes: 43567 Delivery global pkg and Other Procedure See Report (bilateral salpingectomy )
--- NOTE | 2025-03-02 08:16 | PCM.POST.ANE ---
Anesthesia: Postop Eval I Current Vital Signs Temperature: 97 F Pulse Rate: 75 Blood Pressure: 98/83 Respiratory Rate: 16 Pulse Ox: 100 Oxygen Delivery Method: Room Air Assessment Airway patent: Yes Spontaneous unlabored respirations: Yes Mental status: Awake and Calm nausea: No Vomiting: No Anesthesia Complication: No Fluid Hydration Crystalloid volume administer (ml): 900 Total IV fluid infused: 900 Progress Note Anesthesia document: Postop Eval 1 completed: Yes
--- NOTE | 2025-03-02 08:19 | POSTOPAN2_ITS ---
Anesthesia Postop Eval I Sum Postop Eval Completion status Anesthesia document: Postop Eval 1 completed: Yes Anesthesia Postop Eval I Summary Anesthesia Postop Eval I Summary: Anesthesia Postop Eval I: Assessment Summary Airway patent Yes 03/02/25 08:16 PIANO INSTRUCTOR.MDQUE Spontaneous unlabored Yes 03/02/25 08:16 PIANO INSTRUCTOR.OT respirations Mental status Awake,Calm 03/02/25 08:16 PIANO INSTRUCTOR.MDOT nausea No 03/02/25 08:16 PIANO INSTRUCTOR.MDOT Vomiting No 03/02/25 08:16 PIANO INSTRUCTOR.MDOT Anesthesia Postop Eval I: Fluid Summary Crystalloid volume administer 900 03/02/25 08:16 PIANO INSTRUCTOR.MDOT (ml) Colloids volume administered ( ml) Blood Product volume administered (ml) Total IV fluid infused 900 03/02/25 08:16 PIANO INSTRUCTOR.OT Anesthesia Postop Eval I: Summary Notes Anesthesia Complication No 03/02/25 08:16 PIANO INSTRUCTOR.OT Anesthesia Complication Comment: Post-operative progress note Anesthesia: Postop Eval II Evaluation Mental status: Awake and Calm Pain Level: 0 nausea: No Vomiting: No Complications Anesthesia Complication: No
--- NOTE | 2025-03-02 08:19 | PCM.POSTANE2 ---
Anesthesia Postop Eval I Sum Postop Eval Completion status Anesthesia document: Postop Eval 1 completed: Yes Anesthesia Postop Eval I Summary Anesthesia Postop Eval I Summary: Anesthesia Postop Eval I: Assessment Summary Airway patent Yes 03/02/25 08:16 DRAW BENCH OPERATOR.MDQUE Spontaneous unlabored Yes 03/02/25 08:16 DRAW BENCH OPERATOR.OT respirations Mental status Awake,Calm 03/02/25 08:16 DRAW BENCH OPERATOR.MDOT nausea No 03/02/25 08:16 DRAW BENCH OPERATOR.MDOT Vomiting No 03/02/25 08:16 DRAW BENCH OPERATOR.MDOT Anesthesia Postop Eval I: Fluid Summary Crystalloid volume administer 900 03/02/25 08:16 DRAW BENCH OPERATOR.MDOT (ml) Colloids volume administered ( ml) Blood Product volume administered (ml) Total IV fluid infused 900 03/02/25 08:16 DRAW BENCH OPERATOR.OT Anesthesia Postop Eval I: Summary Notes Anesthesia Complication No 03/02/25 08:16 DRAW BENCH OPERATOR.OT Anesthesia Complication Comment: Post-operative progress note Anesthesia: Postop Eval II Evaluation Mental status: Awake and Calm Pain Level: 0 nausea: No Vomiting: No Complications Anesthesia Complication: No
[2025-03-02] MEDS: Oxytocin 15 Units/NS 250ml 15 UNITS/250 ML IV.SOLN 83 UNITS IV (08:30)
[2025-03-02] MEDS: Ketorolac 30 MG/ML Syringe IV ×3 (09:01→21:17)
--- NOTE | 2025-03-02 09:09 | FALS_PTH ---
PATIENT: RAGHAV NGUYEN LOC: [facility] U#:[id number] AGE/SX: 29/F ROOM: WP006 RE03/02/[address]: Dr. Bethany Fry DO : 1995 BED: 1 DIS: 03/03/2025 SPEC #: [id number] RECD: 03/02/25 09:18 STATUS: FAM ESTEBAN #: [id number] JAMIE: 03/02/25 09:[address]: Bethany Fry DEPT: SURGICAL PATHOLOGY RECD BY: Paty Bal Tissues: A - Fallopian tube Procedures: Surgery Specimen Level II HEADER OPERATION: Tubal ligation PRE-OP DIAGNOSIS: Sterilization TISSUE SUBMITTED: A- Bilateral fallopian tubes MICROSCOPIC DIAGNOSIS A. Two fallopian tubes, bilateral salpingectomies: * Full thickness segments of two benign fallopian tubes MICROSCOPIC DESCRIPTION Slides are reviewed. GROSS DESCRIPTION A. Received in formalin labeled with the patient's name and date of . Designated as bilat. tubes fallopian, suture and R are 2 red-purple fimbriated fallopian tubes, 7.1 x 0.5-0.8 cm (right, designated with suture) and 7.5 x 0.5 cm. There is a <0.1 cm paratubal cyst of the left fallopian tube. Derrick Barge Operator sections are submitted in 2 cassettes, to include the entirety of the fimbria as follows:A1: Right fallopian tubeA2: Left fallopian tube SLC 03/03/2025 CPT:[id number]
[2025-03-02] MEDS: Lactated Ringers 1,000 ML 100 ML IV (11:35)
[2025-03-02 12:39] LABS: Pathology Specimen OB SEE PATHOLOGY REPORT
[2025-03-02] MEDS: 0.9% Saline Lock 10 ML Syringe IV ×2 (14:39→21:18)
[2025-03-03] MEDS: Ketorolac 30 MG/ML Syringe IV (03:26)
[2025-03-03 03:33] VITALS: BP 111/58; PULSE 52; RESP 16; TEMP 36.1; O2SAT 97
[2025-03-03] MEDS: Acetaminophen 500 MG Tablet 1000 MG PO (06:07)
[2025-03-03 06:18] LABS: Hematocrit 29.3 % (37-47); Hemoglobin 10.3 g/dL (12.0-15.0); Mean Corp Hgb Conc 35.2 g/dL (32-36); Mean Corpuscular Hgb 31.5 pg (27.0-32.0); Mean Corpuscular Volume 89.6 fL (81-99); Mean Platelet Vol. 9.4 fl (6.2-12.0); Platelet Count 197 K/mm3 (150-450); RBC Distribution Width SD 42.7 fl (35.1-43.9); Red Blood Count 3.27 M/mm3 (4.2-5.4); White Blood Count 8.4 K/mm3 (4.4-11.0)
--- NOTE | 2025-03-03 07:37 | PCM.PN.OB ---
Subjective Subjective Patient is laying in bed comfortably without complaints. She states that she slept on an off during the night. Lochia is mild and pain is minimal. Objective Data Objective Data Vital Signs: Vital Signs Temp Pulse Resp BP Pulse Ox O2 Del Method 97 F L 52 L 16 111/58 L 97 Room Air 03/03/25 03:33 03/03/25 03:33 03/03/25 03:33 03/03/25 03:33 03/03/25 03:33 03/03/25 03:33 Oxygen Delivery Method Room Air Weight: 154 lb 5.177 oz Body Mass Index (BMI) 27.3 Intake & Output: Intake and Output for Last 24 Hours 03/01/25 03/02/25 03/03/25 23:59 23:59 23:59 Intake Total 1837.5 / 1837.5 Output Total 1350 / 1350 Balance 487.5 / 487.5 Lab / Micro Data 03/03/25 06:05 Labs: Laboratory Results - last 24 hr 03/03/25 06:05: WBC 8.4, RBC 3.27 L, Hgb 10.3 L, Hct 29.3 L, MCV 89.6, MCH 31.5, MCHC 35.2, RDW Std Deviation 42.7, RDW Coeff of Luz Maria 13.0, Plt Count 197, MPV 9.4 ROS Constitutional Constitutional: Reports systems reviewed and no addt'l complaints, except as documented Cardiovascular Cardiovascular: Denies chest pain, dizziness, dyspnea or irregular heart rhythm Respiratory/Chest Respiratory/Chest: Denies cough, pain on inspiration or shortness of breath at rest Gastrointestinal Gastrointestinal: Denies abdominal pain, nausea or vomiting Genitourinary Genitourinary: Denies burning urination Musculoskeletal Musculoskeletal: Denies muscle cramps, muscle spasms or muscle weakness Neurologic Neurologic: Denies confusion, dizziness, headache(s) or lack of coordination Psychiatric Psychiatric: Denies anxiety, behavioral changes or depression Physical Exam HEENT normocephalic Resp normal respiratory effort and normal air movement GI soft to palpation, non-tender and non-distended Rectal Exam: other Other Details: Incision is clean, dry, and intact no CVA tenderness Extremity normal to inspection General Extremity: edema bilateral (trace ) Assessment & Plan (1) Status post delivery: COMMENT: with KATINA ALMONTE 03/02/25 PLAN: s/p LTCS PPD # 1 1. routine post care 2. breast feeding- support given 3. rh positive 4. rubella immune 5. wants to go home this am
[2025-03-03 07:46] VITALS: BP 115/70; PULSE 68; RESP 16; TEMP 36.4; O2SAT 98
[2025-03-03] MEDS: Ibuprofen 600 MG Tablet PO (09:08)
[2025-03-03] MEDS: Senna/Docusate Sodium 1 Tablet PO (09:08)
--- NOTE | 2025-03-11 14:23 | NURSING ---
Follow up phone call: Patient is doing really well, no more pain medication needed. Patient was able to take her dressing off of incision and no signs of infection. Patient reports not s+s of pp complications. Infant is doing well, just had appointment with pcp and is gaining weight well. Patient was satisfied with care during stay.
== END 2025-03-03 10:30 | disposition home or self-care (01) | DRG 785 ==
PROVIDERS: Admitting Provider Obstetrics & Gynecology; Visit Provider Obstetrics & Gynecology
PROC: 10D00Z1 Extraction of Products of Conception, Low, Open Approach (ICD-10-PCS; CPT 59514; principal; 2025-03-02 07:00)
DX: O77.0 Labor and delivery complicated by meconium in amniotic fluid (principal); D64.9 Anemia, unspecified; O99.02 Anemia complicating childbirth; O34.211 Maternal care for low transverse scar from previous cesarean delivery; O69.81X0 Labor and delivery complicated by cord around neck, without compression, not applicable or unspecified; Z30.2 Encounter for sterilization; Z37.0 Single live birth; Z3A.39 39 weeks gestation of pregnancy
CPT/HCPCS: 59025; 59050; 85025; 85027; 86780; 86850; 86900; 86901; 88302; 99221; A4216; G0378; J2405